=== PATIENT | male | born 1960 | race African-American/Black ===

== ENCOUNTER 2020-01-18 01:51 | Observation (INO) | payer OTHER, MEDICAID, SELFPAY ==
[2020-01-18] VITALS (40 sets, daily range): BP systolic 106–158; BP diastolic 53–99; PULSE 61–83; RESP 14–34; TEMP 36.4–36.9; O2SAT 94–98; BMI 41.9
--- NOTE | 2020-01-18 02:03 | DI.RAD.S_ITS ---
PROCEDURE: XR CHEST 1V INDICATIONS: chest pain TECHNIQUE: One view of the chest was acquired. COMPARISON: [facility], , CHEST 2 VIEW, 04/07/2014, 12:09. FINDINGS: Surgical changes and devices: None. Lungs and pleura: Lungs are clear. No pleural effusions or pneumothorax. Mediastinum: Mediastinal contours appear normal. Heart size is normal. Bones and chest wall: No suspicious bony lesions. Overlying soft tissues appear unremarkable. IMPRESSION: No acute cardiopulmonary disease process. Dictated by: Sheba Adkins MD, PhD on 01/18/2020 at 8:19 Approved by: Sheba Adkins MD, PhD on 01/18/2020 at 8:19
[2020-01-18 02:10] LABS: Add Manual Diff / Slide Review NO; Basophils Absolute Auto 100 /uL (0-100); Basophils Percent Auto 1.4 % (0-2); Eosinophils Absolute Auto 300 /uL (0-450); Eosinophils Percent Auto 3.1 % (2-4); Hematocrit 39.8 % (41-53); Hemoglobin 13.3 g/dL (13.5-17.5); Lymphocytes Absolute Auto 2700 /uL (1100-4500); Lymphocytes Percent Auto 27.8 % (25-40); Mean Corpuscular HGB Conc 33.4 % (30-36); Mean Corpuscular Hemoglobin 32.7 PG (26-34); Mean Corpuscular Volume 98.1 fL (80-100); Monocytes Absolute Auto 900 /uL (0-900); Monocytes Percent Auto 9.1 % (3-14); Neutrophils Absolute Auto 5600 /uL (1500-7000); Neutrophils Percent Auto 58.6 % (50-75); Platelet Count 238 X10^3/uL (150-400); Red Blood Cell Count 4.05 X10^6/uL (4.5-5.9); Red Cell Distribution Width 14.1 % (11.6-14.8); White Blood Cell Count 9.5 X10^3/uL (4.5-11.0)
[2020-01-18] MEDS: NITROGLYCERIN OINT 1 INCH/GM OINT...G. 0.5 INCH TOP (02:10)
[2020-01-18] MEDS: ASPIRIN 81 MG CHEW TAB 324 MG PO (02:10)
[2020-01-18] MEDS: SODIUM CHLORIDE 0.9% 1,000 ML 150 ML IV (02:10)
[2020-01-18 02:21] LABS: Alanine Aminotransferase 41 IU/L (<50); Albumin 4.4 g/dL (3.5-5.0); Albumin Globulin Ratio 1.1 (1.0-2.8); Alkaline Phosphatase 65 U/L (38-126); Aspartate Aminotransferase 56 IU/L (17-59); Bilirubin Total 0.7 mg/dL (0.2-1.3); Blood Urea Nitrogen 18 mg/dL (9-20); Calcium 9.7 mg/dL (8.4-10.2); Carbon Dioxide 28 mmol/L (22-32); Chloride 101 mmol/L (98-107); Creatine Kinase 704 U/L (55-170); Estimated Glomerular Filt Rate > 60.0 mL/min (>60); Globulin 4.1 g/dL (1.7-4.1); Glucose 118 mg/dL (80-110); HEMOLYSIS < 15 (0-50); Lipase 89 U/L (23-300); Sodium 137 mmol/L (137-145); Total Protein 8.5 g/dL (6.3-8.2)
[2020-01-18 02:30] LABS: NT-proBNP (BNP-Adult 18+) 38 pg/mL (<125)
[2020-01-18 02:33] LABS: Troponin I 0.015 ng/mL (0.01-0.034)
--- NOTE | 2020-01-18 02:35 | ED_ITS ---
HPI - Chest Pain General Chief Complaint: Chest Pain Stated Complaint: chest pain Time Seen by Provider: 01/18/20 02:02 Source: patient Mode of arrival: Ambulatory Limitations: no limitations History of Present Illness HPI narrative: 59M non smoker with history of coronary artery disease with 1 stent, hypertension, hyperlipidemia presents with a chief complaint of chest pressure that started at about 10:00 p.m. in the absence of provocation or palliation. It was retrosternal in location and he denies any radiation. He denies any obvious exertional component. He denies any dizziness, weakness or lightheadedness. He denies any shortness of breath. He has had no runny nose, sore throat nor fever or chills. He denies any obvious exposure to persons known to have coronavirus. He saw a doctor at [facility] as an outpatient yesterday due to complaint of some increased swelling in his lower extremities. He was taken off of his and loaded pain and placed on furosemide. He is currently having pressure which he rates as maybe a 1 or a 2/10. He did take a full dose aspirin prior to coming. He's had no provocative testing in a quite a few years. MD complaint: chest pain Onset (ago): hour(s) Duration: constant Onset: during rest Pain location: substernal Severity: mild Quality: tightness Pain radiation: none Relieving factors: nothing Exacerbating factors: nothing Treatments prior to arrival chest pain: aspirin Related Data Home Medications Medication Instructions Recorded Confirmed aspirin [Aspirin Childrens] 81 mg PO DAILY 01/18/20 01/18/20 atorvastatin 80 mg PO BEDTIME 01/18/20 01/18/20 finasteride 5 mg PO DAILY 01/18/20 01/18/20 furosemide 20 mg PO DAILY 01/18/20 01/18/20 isosorbide mononitrate 30 mg PO DAILY 01/18/20 01/18/20 metoprolol succinate 50 mg PO BID 01/18/20 01/18/20 omeprazole 40 mg PO DAILY 01/18/20 01/18/20 polyvinyl alcohol [Artificial 1 drp OPHTHALMIC (EYE) PRN PRN 01/18/20 01/18/20 Tears (polyvin alc)] potassium chloride 10 meq PO DAILY 01/18/20 01/18/20 triamcinolone acetonide 1 applic TOPICAL BID 01/18/20 01/18/20 Allergies Allergy/AdvReac Type Severity Reaction Status Date / Time lisinopril Allergy Verified 01/18/20 03:16 prils Allergy Mild any pril Uncoded 09/15/17 13:09 bp meds (hives) Review of Systems Constitutional Constitutional: Denies chills, Denies fatigue, Denies fever(s), Denies frequent falls, Denies lethargy and Denies weakness Eyes Eyes: Denies change in vision, Denies eye discharge, Denies irritation and Denies loss of vision ENT Ears, Nose, Mouth, and Throat: Denies change in voice, Denies dizziness, Denies neck pain, Denies sore throat and Denies throat swelling Cardiovascular Cardiovascular: Reports chest pain, Denies irregular heart rhythm, Reports leg edema, Denies lightheadedness, Denies palpitations, Denies dyspnea, Denies dyspnea on exertion and Denies orthopnea Respiratory Respiratory: Denies cough, Denies dyspnea, Denies dyspnea on exertion and Denies wheezing Gastrointestinal Gastrointestinal: Denies abdominal pain, Denies change in bowel habits, Denies diarrhea, Denies nausea and Denies vomiting Musculoskeletal Musculoskeletal: Denies neck pain and Denies numbness Integumentary/Breasts Skin/Breast: Denies pruritus, Denies erythema, Denies rash and Denies wounds Neurologic Neurologic: Denies behavioral changes, Denies confusion, Denies dizziness, Denies frequent falls, Denies loss of vision, Denies numbness and Denies weakness Psychiatric Psychiatric: Denies anxiety, Denies behavioral changes, Denies confusion, Denies depression, Denies homicidal ideation and Denies suicidal ideation Endocrine Endocrine: Denies fatigue, Denies flushing and Denies palpitations Hematologic/Lymphatic Hematologic/Lymphatic: Denies easy bruising Allergic/Immunologic Allergic/Immunologic: Denies urticaria, Denies throat swelling and Denies wheezing Patient History Medical History (Updated 01/18/20 @ 15:03 by Zeb Torres MD) Alcohol abuse (Acute) CAD (coronary artery disease) (Acute) Chronic GERD (Acute) Mild peripheral edema (Acute) Obesities, morbid (Acute) Surgical History (Updated 01/18/20 @ 15:01 by Zeb Torres MD) History of coronary artery stent placement (Acute) Social History household members: family Smoking Status: Never smoker Smoking Status: Never smoker alcohol intake frequency: 0-2 drinks per day Substance Use Type: does not use Exam Narrative Exam Narrative: GENERAL: [59] year old patient appears stated age. Well- nourished, well-developed patient, in mild distress. HEAD: Atraumatic. Normocephalic. EYES: Pupils equal round and reactive. Extraocular motions intact. No scleral icterus. No injection or drainage. ENT: Nose without bleeding, purulent drainage. Throat without erythema, tonsil lar hypertrophy or exudate. Airway patent. NECK: Trachea midline. Non tender CARDIOVASCULAR: Regular rate and rhythm without murmurs, gallops, or rubs. RESPIRATORY: Clear to auscultation. Breath sounds equal bilaterally. No wheezes, rales, or rhonchi. GASTROINTESTINAL: Abdomen soft, non-tender, nondistended. EXTREMITIES: 2+ pitting edema bilateral lower extremities. BACK: Nontender without deformity or crepitance. No flank tenderness. NEURO: AOx3. SKIN: No rash or erythema of visible areas Initial Vital Signs Initial Vital Signs: Vital Signs Temperature 98.3 F 01/18/20 02:09 Pulse Rate 74 01/18/20 02:09 Respiratory Rate 15 01/18/20 02:09 Blood Pressure 156/91 H 01/18/20 02:09 Pulse Oximetry 97 01/18/20 02:09 Course Orders Ordered: Artificial Tears (Artificial Tears) 1 drops EYE-BOTH PRN PRN PRN Reason: Dry Eyes Aspirin (Aspirin Chew) 81 mg PO DAILY [facility] Atorvastatin Calcium (Lipitor) 80 mg PO BEDTIME [facility] Finasteride (Proscar) 5 mg PO DAILY [facility] Furosemide (Lasix) 20 mg PO DAILY [facility] Isosorbide Mononitrate (Imdur) 30 mg PO DAILY [facility] Metoprolol Succinate (Toprol Xl) 50 mg PO BID [facility] Naloxone HCl (Narcan) 0.2 mg IV Q2MIN PRN PRN Reason: Opiate Reversal Nitroglycerin (Nitrostat) 0.4 mg SL [id number] PRN PRN Reason: Chest Pain Pantoprazole Sodium (Protonix) 40 mg PO DAILY [facility] Potassium Chloride (Klor-Con M10) 10 meq PO DAILY JONEL Discontinued Medications Aspirin (Aspirin Chew) 324 mg PO NOW ONE Stop: 01/18/20 02:03 Last Admin: 01/18/20 02:22 Dose: Not Given Documented by: MARY Furosemide (Lasix) 40 mg IV NOW ONE Stop: 01/18/20 02:37 Last Admin: 01/18/20 02:50 Dose: 40 mg Documented by: HERB Sodium Chloride (Normal Saline 0.9%) 1,000 mls @ 150 mls/hr IV CONT JONEL Last Infusion: 01/18/20 03:18 Dose: 0 mls/hr Documented by: Admin: 01/18/20 02:10 Dose: 150 mls/hr Documented by: MARY Metoprolol Tartrate (Lopressor) 50 mg PO NOW ONE Stop: 01/18/20 15:18 Last Admin: 01/18/20 17:41 Dose: Not Given Documented by: OSCAR Metoprolol Tartrate (Lopressor) 50 mg PO NOW ONE Stop: 01/18/20 17:46 Last Admin: 01/18/20 17:41 Dose: 50 mg Documented by: OSCAR Nitroglycerin (Nitro-Bid) 0.5 inch TOP NOW ONE Stop: 01/18/20 02:03 Last Admin: 01/18/20 02:10 Dose: 0.5 inch Documented by: MARY Vital Signs Vital signs: Vital Signs - 8 hr 01/18/20 02:09 01/18/20 02:24 01/18/20 02:30 Temperature 98.3 F Pulse Rate 74 73 74 Respiratory Rate 15 24 21 Blood Pressure 156/91 H Pulse Oximetry 97 97 97 01/18/20 02:31 01/18/20 03:00 01/18/20 03:30 Temperature Pulse Rate 72 67 65 Respiratory Rate 20 22 16 Blood Pressure 133/78 129/78 Pulse Oximetry 97 97 97 01/18/20 03:31 01/18/20 04:00 01/18/20 04:31 Temperature Pulse Rate 64 63 61 Respiratory Rate 17 16 16 Blood Pressure 119/68 129/69 119/66 Pulse Oximetry 96 97 98 01/18/20 05:00 01/18/20 05:30 01/18/20 06:00 Temperature Pulse Rate 65 66 68 Respiratory Rate 16 16 19 Blood Pressure 128/81 134/71 143/82 H Pulse Oximetry 97 96 98 MDM - Chest Pain Lab Data Result diagrams: 01/18/20 02:00 01/18/20 02:00 Labs: Lab Results 01/18/20 01/18/20 01/18/20 Range/Units 02:00 02:00 02:00 WBC 9.5 (4.5-11.0) X10^3/uL RBC 4.05 L (4.5-5.9) X10^6/uL Hgb 13.3 L (13.5-17.5) g/dL Hct 39.8 L (41-53) % MCV 98.1 (80-100) fL MCH 32.7 (26-34) PG MCHC 33.4 (30-36) % RDW 14.1 (11.6-14.8) % Plt Count 238 (150-400) X10^3/uL Neut % (Auto) 58.6 (50-75) % Lymph % (Auto) 27.8 (25-40) % Rains % (Auto) 9.1 (3-14) % Eos % (Auto) 3.1 (2-4) % Baso % (Auto) 1.4 (0-2) % Neut # (Auto) 5600 (6376-9737) /uL Lymph # (Auto) 2700 (4947-8429) /uL Rains # (Auto) 900 (0-900) /uL Eos # (Auto) 300 (0-450) /uL Baso # (Auto) 100 (0-100) /uL Sodium 137 (137-145) mmol/L Potassium 4.0 (3.4-5.1) mmol/L Chloride 101 (98-107) mmol/L Carbon Dioxide 28 (22-32) mmol/L BUN 18 (9-20) mg/dL Creatinine 1.06 (0.66-1.25) mg/dL Estimated GFR > 60.0 (>60) mL/min BUN/Creatinine Ratio 17.0 (6-22) Glucose 118 H (80-110) mg/dL Calcium 9.7 (8.4-10.2) mg/dL Total Bilirubin 0.7 (0.2-1.3) mg/dL AST 56 (17-59) IU/L ALT 41 (<50) IU/L Alkaline Phosphatase 65 (38-126) U/L Total Creatine Kinase 704 H (55-170) U/L CK-MB (CK-2) 5.52 H (<2.37) ng/mL CK-MB (CK-2) Rel Index 0.8 L (1.5-5.0) % Troponin I 0.015 (0.01-0.034) ng/mL NT-Pro-B Natriuret Pep 38 (<125) pg/mL Total Protein 8.5 H (6.3-8.2) g/dL Albumin 4.4 (3.5-5.0) g/dL Globulin 4.1 (1.7-4.1) g/dL Albumin/Globulin Ratio 1.1 (1.0-2.8) Lipase 89 (23-300) U/L 01/18/20 Range/Units 04:10 WBC (4.5-11.0) X10^3/uL RBC (4.5-5.9) X10^6/uL Hgb (13.5-17.5) g/dL Hct (41-53) % MCV (80-100) fL MCH (26-34) PG MCHC (30-36) % RDW (11.6-14.8) % Plt Count (150-400) X10^3/uL Neut % (Auto) (50-75) % Lymph % (Auto) (25-40) % Rains % (Auto) (3-14) % Eos % (Auto) (2-4) % Baso % (Auto) (0-2) % Neut # (Auto) (6889-3561) /uL Lymph # (Auto) (2523-2794) /uL Rains # (Auto) (0-900) /uL Eos # (Auto) (0-450) /uL Baso # (Auto) (0-100) /uL Sodium (137-145) mmol/L Potassium (3.4-5.1) mmol/L Chloride (98-107) mmol/L Carbon Dioxide (22-32) mmol/L BUN (9-20) mg/dL Creatinine (0.66-1.25) mg/dL Estimated GFR (>60) mL/min BUN/Creatinine Ratio (6-22) Glucose (80-110) mg/dL Calcium (8.4-10.2) mg/dL Total Bilirubin (0.2-1.3) mg/dL AST (17-59) IU/L ALT (<50) IU/L Alkaline Phosphatase (38-126) U/L Total Creatine Kinase (55-170) U/L CK-MB (CK-2) (<2.37) ng/mL CK-MB (CK-2) Rel Index (1.5-5.0) % Troponin I 0.014 (0.01-0.034) ng/mL NT-Pro-B Natriuret Pep (<125) pg/mL Total Protein (6.3-8.2) g/dL Albumin (3.5-5.0) g/dL Globulin (1.7-4.1) g/dL Albumin/Globulin Ratio (1.0-2.8) Lipase (23-300) U/L Imaging Data Chest x-ray: Radiologist's Impression: No acute process MDM Narrative Medical decision making narrative: Patient resting comfortably in though he is now pain-free (after nitro paste) and has troponin x2 negative he requires admission to the hospital for the traditional cardiac workup including echocardiogram and provocative testing along with maximizing medical therapy. Patient understands and is in agreement with this plan. He is boarding as we currently have no beds but they expect to free up this morning. I have placed an initial call to the hospitalist but the patient will be signed out to my partner and full discussion will happen with the daytime hospitalist later this morning Discharge Plan Departure Patient Disposition: Admitted As Inpatient Clinical Impression: Chest pain Qualifiers: Chest pain type: unspecified Qualified Code(s): R07.9 - Chest pain, unspecified Discharge Date/Time: 01/18/20 13:03 Admit Date/Time: 01/18/20 08:19 Admit Provider: Zeb Torres
[2020-01-18 02:36] LABS: CKMB % Relative Index 0.8 % (1.5-5.0); Creatine Kinase MB 5.52 ng/mL (<2.37)
[2020-01-18] MEDS: FUROSEMIDE 40 MG/4 ML VIAL IV (02:50)
[2020-01-18 04:45] LABS: Troponin I 0.014 ng/mL (0.01-0.034)
--- NOTE | 2020-01-18 05:27 | PC.NURSE ---
Addendum entered by Dinora Thompson R.N. 01/18/20 05:29: Placed 2L of O2 while pt sleeps. Pt's spo2 increases to high 90s while awake in RA Original Note: Pt drops spo2 with sleeping. denies sleep apnea diagnosis but states was told he stops breathing when he sleeps.
--- NOTE | 2020-01-18 06:59 | PC.NURSE ---
Pt started to complain of chest pain in left side starting about 5 minutes ago. Provider aware. EKG being performed
[2020-01-18 09:54] LABS: COVID19 -Nasal RAPID Negative (Negative)
[2020-01-18 13:05] LABS: Troponin I < 0.012 ng/mL (0.01-0.034)
--- NOTE | 2020-01-18 14:49 | DI.ECHO.S_ITS ---
[facility] +---------+ Hospital +---------+ : : [address] : : : [place], [place] : : : : [id number] : : : : Phone: [phone] Echocardiogram Report + + :Name: SANG VILLALTA Study Date: 01/18/2020 Height: 66 in : :[facility] Weight: 260 lb : : Gender: Male BSA: 2.2 m2 : :: 1960 Age: 59 yrs BP: 123/64 mmHg: :Reason For Study: Chest pain : :Ordering Physician: Renetta : :Hospitalist Performed By: Lachelle Nance : :Referring: JAIMEE BALDWIN : + + Interpretation Summary 1) Mildly increased left ventricular thickness (concentric), with normal size, normal wall motion, and normal systolic function (EF 60-65%). 2) The right ventricle is mildly dilated. The right ventricular systolic function is normal. 3) There is mild aortic regurgitation. 4) No prior Echo available for comparison. Procedure: A two-dimensional transthoracic echocardiogram with color flow and Doppler was performed. The study quality was technically adequate. There is no prior echocardiogram noted for this patient. The patient was in sinus rhythm with heart rates between 63-85 bpm during the exam. Left Ventricle: The left ventricle is normal in size. Left ventricular wall thickness is mildly increased. There is mild proximal septal thickening noted. The ejection fraction is estimated to be 60-65%. Left ventricular systolic function is normal without focal wall motion abnormalities. Right Ventricle: The right ventricle is mildly dilated. The right ventricular systolic function is normal. Atria: The left atrial size is normal. Right atrial size is normal. There is no Doppler evidence for an interatrial shunt. Mitral Valve: The mitral valve is normal in structure and function. There is trace mitral regurgitation. Aortic Valve: The aortic valve is trileaflet. The aortic valve opens well. There is no aortic valve stenosis. There is mild aortic regurgitation. Tricuspid Valve: The tricuspid valve is normal in structure and function. Pulmonary artery pressures cannot be estimated because of the lack of a measurable TR jet velocity but the IVC suggests a CVP of around 3 mmHg. There is mild tricuspid regurgitation. Pulmonic Valve: The pulmonic valve is not well seen, but is grossly normal. There is no pulmonic valvular regurgitation. Great Vessels: The aortic root is normal size. The ascending aorta is normal in size. The IVC is of normal diameter and collapses greater than 50% with a sniff. This suggests a low right atrial pressure of 3 mm Hg. Pericardium/ Pleura There is no pericardial effusion. There is no pleural effusion. MMode/2D Measurements & Calculations LVIDd: 5.4 cm LVOT diam: 2.4 cm LVIDs: 3.4 cm Ao root diam: 3.4 cm FS: 37.8 % asc Aorta Diam: 3.3 cm EPSS: 0.97 cm Ao Arch Diam (Prox Trans): 3.4 cm IVSd: 1.2 cm LVPWd: 1.4 cm LV knowles. diameter/BSA (cm/m^2): 2.4 LV sys. diameter/BSA (cm/m^2): 1.5 LA A2 area: 23.0 cm2 RA long axis: 5.0 cm LA A4 area: 18.9 cm2 RA area: 18.4 cm2 LA length (vol): 5.5 cm RA vol: 57.3 ml LA vol: 67.1 ml RA : 25.6 ml/m2 LA vol index: 30.0 ml/m2 IVC diam: 1.9 cm RVD1 (basal): 4.5 cm TAPSE: 2.8 cm Doppler Measurements & Calculations Ao V2 max: 152.2 cm/sec LVOT Max Gildardo: 138.8 cm/sec Ao V2 mean: 109.5 cm/sec LV V1 max P.7 mmHg Ao max P.3 mmHg LV V1 VTI: 33.3 cm Ao mean P.4 mmHg WILSON(I,D): 4.4 cm2 Ao V2 VTI: 35.4 cm WILSON(V,D): 4.3 cm2 sev ratio: 0.94 WILSON indexed to BSA (cm^2/m^2): 2.0 MV E max gildardo: 57.9 cm/sec PA V2 max: 91.7 cm/sec MV A max gildardo: 80.3 cm/sec PA V2 mean: 61.9 cm/sec MV E/A: 0.72 PA mean P.8 mmHg Med Peak E' Gildardo: 7.2 cm/sec PA pr(Accel): 37.9 mmHg E/E' med: 8.0 Lat Peak E' Gildardo: 6.5 cm/sec E/E' lat: 8.9 E/e' average: 8.5 MV dec time: 0.24 sec SV(LVOT): 157.1 ml Reading Physician:05:33 PM
--- NOTE | 2020-01-18 14:55 | P.HP_ITS ---
History of Present Illness History of Present Illness Date Patient Seen: 01/18/20 Chief complaint: chest pain Narrative: Patient is a 59-year-old male former smoker with history of obesity, CAD, stent placement 2017, GERD, significant alcohol use who presented to ED with complaints of chest discomfort. Patient had seen his provider the day prior due to increased swelling in his lower extremities and was started on oral Lasix with further workup planned. He states his legs have been more swollen than usual over the past few days. He has taken some long car rides as well. He felt short of breath when walking the boardwalk in [facility] which is further than he typically walks but he did not have any exertional chest discomfort. Around 10:00 p.m. yesterday he had chest pain on the left side which started at rest and was persistent at the time he showed up in the ER around 2:00 a.m.. Subsequently his chest discomfort improved after aspirin and nitroglycerin in the ER and he has had some intermittent discomfort since that time. He is currently not having chest pain. His initial troponin is normal. He was admitted for chest pain rule out. Patient states he was hospitalized at [facility] in [place] in 2017 due to chest pain which resulted in stent placement for 99% coronary occlusion. He states he had another artery that was 75% blocked but did not require intervention. He states he has been compliant with his medications. He has smoked most of his life up to 1/2 pack per day but last quit a year ago. He states he drinks equivalent of 4 beers a day. Patient History Medical History (Updated 01/18/20 @ 15:03 by Zeb Torres MD) Alcohol abuse (Acute) CAD (coronary artery disease) (Acute) Chronic GERD (Acute) Mild peripheral edema (Acute) Obesities, morbid (Acute) Surgical History (Updated 01/18/20 @ 15:01 by Zeb Torres MD) History of coronary artery stent placement (Acute) Family & Social History Social History: household members family Prior Living Arrangements House Safety & Behavioral: Feels Safe in Current Yes Environment Been Physically Hurt or No Threatened By a Person Suicidal Ideation Description None Suicide Plan Description No Plan Tobacco & Substance use: Smoking Status Former smoker alcohol intake frequency 4 beers per day Substance Use Type does not use Meds Home Medications and Allergies Home Medications Medication Instructions Recorded Confirmed Type aspirin [Aspirin Childrens] 81 mg PO DAILY 01/18/20 01/18/20 History atorvastatin 80 mg PO BEDTIME 01/18/20 01/18/20 History finasteride 5 mg PO DAILY 01/18/20 01/18/20 History furosemide 20 mg PO DAILY 01/18/20 01/18/20 History isosorbide mononitrate 30 mg PO DAILY 01/18/20 01/18/20 History metoprolol succinate 50 mg PO BID 01/18/20 01/18/20 History omeprazole 40 mg PO DAILY 01/18/20 01/18/20 History polyvinyl alcohol [Artificial 1 drp OPHTHALMIC (EYE) PRN PRN 01/18/20 01/18/20 History Tears (polyvin alc)] potassium chloride 10 meq PO DAILY 01/18/20 01/18/20 History triamcinolone acetonide 1 applic TOPICAL BID 01/18/20 01/18/20 History Allergies Allergy/AdvReac Type Severity Reaction Status Date / Time lisinopril Allergy Verified 01/18/20 03:16 prils Allergy Mild any pril Uncoded 09/15/17 13:09 bp meds (hives) Review of Systems Review of Systems ROS: Yes All systems reviewed with the patient and are negative except as otherwise documented Exam Vital Signs (past 8 hours): - 01/18/20 06:57 01/18/20 06:59 01/18/20 07:00 Temperature Pulse Rate 67 67 Respiratory Rate 16 18 Blood Pressure 124/66 121/63 Pulse Oximetry 94 95 01/18/20 07:01 01/18/20 07:30 01/18/20 08:00 Temperature Pulse Rate 70 69 68 Respiratory Rate 28 H 17 18 Blood Pressure 124/63 135/69 Pulse Oximetry 96 94 97 01/18/20 08:30 01/18/20 08:31 01/18/20 09:00 Temperature Pulse Rate 64 64 72 Respiratory Rate 15 15 21 Blood Pressure 118/67 132/79 Pulse Oximetry 98 97 01/18/20 09:30 01/18/20 09:31 01/18/20 10:00 Temperature Pulse Rate 71 72 67 Respiratory Rate 19 17 16 Blood Pressure 123/66 Pulse Oximetry 01/18/20 10:01 01/18/20 10:30 01/18/20 11:00 Temperature Pulse Rate 65 83 67 Respiratory Rate 20 17 15 Blood Pressure 106/53 L 158/83 H Pulse Oximetry 01/18/20 11:01 01/18/20 11:30 01/18/20 11:31 Temperature Pulse Rate 67 67 66 Respiratory Rate 15 15 Blood Pressure 130/79 117/56 L Pulse Oximetry 01/18/20 12:00 01/18/20 12:30 01/18/20 12:55 Temperature 97.6 F Pulse Rate 67 68 71 Respiratory Rate 18 15 18 Blood Pressure 120/58 L 123/64 156/97 H Pulse Oximetry 94 Oxygen Delivery Method Room Air Oxygen Flow Rate 0 Narrative Exam Narrative: General: Elderly male in no acute distress HEENT: N/C/80, pupils equal and reactive, oropharynx unremarkable Neck: No JVD, no lymphadenopathy Lungs: Clear to auscultation Heart: Distant S1 and S2, regular rate and rhythm, no murmur Abdomen: Severe central obesity, soft, mild epigastric tenderness, no liver or spleen enlargement Extremities: Mild edema in the lower legs and ankles Neurological: Sensorium intact, nonfocal Skin: No rash Objective Labs Result Diagrams: 01/18/20 02:00 01/18/20 02:00 Labs: Laboratory Results - last 24 hr 01/18/20 01/18/20 01/18/20 02:00 02:00 02:00 WBC 9.5 RBC 4.05 L Hgb 13.3 L Hct 39.8 L MCV 98.1 MCH 32.7 MCHC 33.4 RDW 14.1 Plt Count 238 Neut % (Auto) 58.6 Lymph % (Auto) 27.8 Butts % (Auto) 9.1 Eos % (Auto) 3.1 Baso % (Auto) 1.4 Neut # (Auto) 5600 Lymph # (Auto) 2700 Butts # (Auto) 900 Eos # (Auto) 300 Baso # (Auto) 100 Sodium 137 Potassium 4.0 Chloride 101 Carbon Dioxide 28 BUN 18 Creatinine 1.06 Estimated GFR > 60.0 BUN/Creatinine Ratio 17.0 Glucose 118 H Calcium 9.7 Total Bilirubin 0.7 AST 56 ALT 41 Alkaline Phosphatase 65 Total Creatine Kinase 704 H CK-MB (CK-2) 5.52 H CK-MB (CK-2) Rel Index 0.8 L Troponin I 0.015 NT-Pro-B Natriuret Pep 38 Total Protein 8.5 H Albumin 4.4 Globulin 4.1 Albumin/Globulin Ratio 1.1 Lipase 89 COVID-19 PCR 01/18/20 01/18/20 01/18/20 04:10 08:35 08:35 WBC RBC Hgb Hct MCV MCH MCHC RDW Plt Count Neut % (Auto) Lymph % (Auto) Butts % (Auto) Eos % (Auto) Baso % (Auto) Neut # (Auto) Lymph # (Auto) Butts # (Auto) Eos # (Auto) Baso # (Auto) Sodium Potassium Chloride Carbon Dioxide BUN Creatinine Estimated GFR BUN/Creatinine Ratio Glucose Calcium Total Bilirubin AST ALT Alkaline Phosphatase Total Creatine Kinase CK-MB (CK-2) CK-MB (CK-2) Rel Index Troponin I 0.014 NT-Pro-B Natriuret Pep Total Protein Albumin Globulin Albumin/Globulin Ratio Lipase COVID-19 PCR Cancelled Negative 01/18/20 12:25 WBC RBC Hgb Hct MCV MCH MCHC RDW Plt Count Neut % (Auto) Lymph % (Auto) Butts % (Auto) Eos % (Auto) Baso % (Auto) Neut # (Auto) Lymph # (Auto) Butts # (Auto) Eos # (Auto) Baso # (Auto) Sodium Potassium Chloride Carbon Dioxide BUN Creatinine Estimated GFR BUN/Creatinine Ratio Glucose Calcium Total Bilirubin AST ALT Alkaline Phosphatase Total Creatine Kinase CK-MB (CK-2) CK-MB (CK-2) Rel Index Troponin I < 0.012 NT-Pro-B Natriuret Pep Total Protein Albumin Globulin Albumin/Globulin Ratio Lipase COVID-19 PCR Assessment & Plan Assessment & Plan narrative: This is a 59-year-old male with central obesity, CAD, stent placement 2016, peripheral edema presents with chest discomfort. 1. Chest pain, present on admission, active -initial and repeat troponin negative -EKG: NSR, first-degree AV block, no ST or T-wave abnormality. Chest x-ray: Normal -admit for stress test and echo -obtain cardiac catheterization records from [facility] in [place] -continue patient's routine aspirin, atorvastatin, isosorbide mononitrate, metoprolol succinate per home routine 2. Peripheral edema, acute on chronic, present on admission, active -BNP is normal -most likely this is venous stasis exacerbated by recent long car rides -follow-up on echo -continue furosemide 20 mg q.d. and oral potassium started recently 3. Alcohol abuse without history of acute withdrawal -patient with equivalent consumption 4 beers a day, encouraged to reduce alcohol intake -LFTs are normal -check coags Admit status: Observation in hospital DVT prophylaxis: Enoxaparin Surrogate decision maker: Spouse
--- NOTE | 2020-01-18 15:18 | PC.NURSE ---
During change of shift report, patient reports i am now having a little chest pain on left side of chest. Dr. Torres notified, order for EKG and nitroglycerin order received. Evening shift RN Dipti to assume care and taking in medications to patient. BP 137/85, HR 68. Patient has daughter at bedside now. Call light within reach.
[2020-01-18 16:01] LABS: Prothrombin Time 12.1 SECONDS (10.1-12.7)
[2020-01-18 16:04] LABS: PTT Partial Thromboplastin Tim 33 SECONDS (26.4-36.2)
[2020-01-18] MEDS: METOPROLOL IR 50 MG TABLET PO (17:41)
[2020-01-18] MEDS: METOPROLOL ER 50 MG TABLET PO (22:24)
[2020-01-18] MEDS: ATORVASTATIN 20 MG TABLET 80 MG PO (22:24)
[2020-01-19] VITALS (9 sets, daily range): BP systolic 125–161; BP diastolic 78–98; PULSE 61–90; RESP 12–19; TEMP 36.3–36.9; O2SAT 93–96
--- NOTE | 2020-01-19 07:45 | PC.NURSE ---
Spoke with provider about one time now dose protonix at 2345. Provider Chavez stated that should be cancelled, one was also ordered for this am.
[2020-01-19] MEDS: ENOXAPARIN 40 MG/0.4 ML SYRINGE SUBCUT (09:50)
[2020-01-19] MEDS: FINASTERIDE 5 MG TABLET PO (09:50)
[2020-01-19] MEDS: POTASSIUM CHLORIDE 10 MEQ TAB PO (09:51)
[2020-01-19] MEDS: ASPIRIN 81 MG CHEW TAB PO (09:51)
[2020-01-19] MEDS: FUROSEMIDE 20 MG TABLET PO (09:51)
[2020-01-19] MEDS: PANTOPRAZOLE 40 MG TABLET PO (09:51)
[2020-01-19] MEDS: SODIUM CHLORIDE 0.9% FLUSH 10 ML IV (09:53)
--- NOTE | 2020-01-19 11:53 | PC.NURSE ---
Addendum entered by Nathan Burns R.N. 01/19/20 14:48: PATIENT BACK ON UNIT, DENIES CHEST PAIN, STATES STESS TEST WENT FINE. OBTAINED VS. GIVEN BP MEDS THAT HAD BEEN HELD THIS AM. Addendum entered by Nathan Burns R.N. 01/19/20 14:05: PATIENT OFF OF UNIT FOR CARDIAC STRESS TEST. Original Note: PATIENT DENIES CP OR SOB. HAD BLE PITTING EDEMA. ATE BREAKFAST BUT NO COFFEE,, NO CAFFEINE, NO CHOCOLATE. METOPROLOL AND IMDUR HELD AFTER CLARIFICATION FROM DR. BALDWIN D/T SCHEDULED NUC MED STRESS TEST AT 1230.
--- NOTE | 2020-01-19 13:35 | CM.DANOTE ---
Discharge Planning/Care Management DCP: assessment: case received, EMR reviewed and met with pt during Team Bedside Rounds. A family member was at bedside.(? daughter). Pt is a 59 year old male who admitted yesterday to care of hospitalist team. PCP: Dr. Wagner: [facility] Payer: [employer]/Medicaid. Dr. Torres explained to all that he had not yet seen the records he requested yesterday from [facility] in regards to pt's cardiac stent procedure: 2017. Pt is to have a nuclear med stress test this afternoon and then Dr. Torres planned to meet with him to further discuss the POC going forward. P: DCplanning team will be following as POC unfolds and will check in again tomorrow if pt is still in the hospital. CM Discharge Assessment Start: 01/19/20 13:34 Freq: Status: Active Protocol: Document 01/19/20 13:34 ITV (Rec: 01/19/20 13:35 ITV [id number]) Discharge Planning Assessment Advance Directives? No History Provided By Patient,Family Member,Medical Record Prior Living Arrangements House Household Members family Independent with ADL's Yes Is patient alert and oriented? Yes Review Status In Process
[2020-01-19] MEDS: METOPROLOL ER 50 MG TABLET PO (14:46)
[2020-01-19] MEDS: ISOSORBIDE MONONITRATE ER 30 MG TABLET PO (14:47)
--- NOTE | 2020-01-19 17:09 | PM.DS.1 ---
History of Present Illness History of Present Illness Chief complaint: chest pain Narrative: Patient is a 59-year-old male former smoker with history of obesity, CAD, stent placement 2017, GERD, significant alcohol use who presented to ED with complaints of chest discomfort. Patient had seen his provider the day prior due to increased swelling in his lower extremities and was started on oral Lasix with further workup planned. He states his legs have been more swollen than usual over the past few days. He has taken some long car rides as well. He felt short of breath when walking the boardwalk in [facility] which is further than he typically walks but he did not have any exertional chest discomfort. Around 10:00 p.m. yesterday he had chest pain on the left side which started at rest and was persistent at the time he showed up in the ER around 2:00 a.m.. Subsequently his chest discomfort improved after aspirin and nitroglycerin in the ER and he has had some intermittent discomfort since that time. He is currently not having chest pain. His initial troponin is normal. He was admitted for chest pain rule out. Patient states he was hospitalized at [facility] in 2016 due to chest pain which resulted in stent placement for 99% coronary occlusion. He states he had another artery that was 75% blocked but did not require intervention. He states he has been compliant with his medications. He has smoked most of his life up to 1/2 pack per day but last quit a year ago. He states he drinks equivalent of 4 beers a day. Discharge Providers Provider Date of admission: 01/18/20 08:19 Discharge Date: 01/19/20 Discharge provider: Zeb Torres MD Summary Hospital Course Discharge Diagnosis: 1.Chest pain 2. Stable coronary artery disease 3. Obesity 4. Chronic venous stasis edema 5. First-degree AV block Hospital Course: Patient was admitted for chest pain rule out. He had serial negative troponins and no concerning EKG changes. Echo showed normal LVEF, mild concentric LVH, no significant valvular disease. Myocardial perfusion stress test showed no reversible ischemia. We were able to obtain and review patient's records from [facility] in [place]. He had a NSTEMI in December 2016. Patient had bare metal stent placed for 99% proximal RCA stenosis. He also had about 75% stenosis in diagonal branch of LAD. Findings from this admission are indicative of stable CAD. Additionally patient has had some swelling in the lower extremities which appear due to venous stasis. He was recently started on furosemide which he will continue. He is encouraged to get more physical activity and lose weight. Status at Discharge Cognitive/behavioral status at discharge: oriented Functional status at discharge: independent ambulation Overall status at discharge: patient is back to baseline Exam Vital Signs (past 8 hours): - 01/19/20 11:32 01/19/20 13:00 01/19/20 14:46 Temperature 98.3 F Pulse Rate 68 87 Respiratory Rate 19 Blood Pressure 133/89 155/93 H Pulse Oximetry 93 93 01/19/20 15:30 Temperature 98.2 F Pulse Rate 90 Respiratory Rate 17 Blood Pressure 125/88 Pulse Oximetry 95 Oxygen Delivery Method Room Air Oxygen Flow Rate 0 Objective Labs Result Diagrams: 01/18/20 02:00 01/18/20 02:00 Discharge Plan Discharge Plan Patient Disposition: Home Discharge orders & Medications Prescriptions: Continued atorvastatin 80 mg Tablet 80 mg PO BEDTIME RF: 0 triamcinolone acetonide 0.5 % Cream 1 applic TOPICAL BID RF: 0 metoprolol succinate 50 mg Tablet Extended Release 24 Hr 50 mg PO BID RF: 0 polyvinyl alcohol [Artificial Tears (polyvin alc)] 1.4 % Drops 1 drp OPHTHALMIC (EYE) PRN PRN (Reason: Dry Eyes) RF: 0 isosorbide mononitrate 30 mg Tablet Extended Release 24 Hr 30 mg PO DAILY RF: 0 omeprazole 40 mg Capsule,Delayed Release(Dr/Ec) 40 mg PO DAILY RF: 0 aspirin [Aspirin Childrens] 81 mg Tablet,Chewable 81 mg PO DAILY RF: 0 finasteride 5 mg Tablet 5 mg PO DAILY RF: 0 furosemide 20 mg Tablet 20 mg PO DAILY RF: 0 potassium chloride 10 mEq tablet extended release 10 meq PO DAILY RF: 0 Diet/Activity/Treatments Diet: Diet as Tolerated Discharge Data Attending Provider: Zeb Torres Admit Date/Time: 01/18/20 08:19
--- NOTE | 2020-01-19 20:08 | PC.NURSE ---
Shalom spoke with prov regarding results of echo and stress test and discussed going home today. D/C teaching done with patient and daughter Shantal at bedside. Patient wished to shower prior to leaving and had done so. Tele and IV removed, pt lois. well. All questions and concerns were addressed prior to d/c. Patient is aware to f/u with PCP next week. Patient belongings were gathered by daughter and taken down to personal vehicle. Patient was taken to personal vehicle via wheelchair and ambulated self into car. Patient left in stable condition. VSS.
--- NOTE | 2020-01-20 03:38 | DI.NM.S_ITS ---
DATE OF SERVICE: 01/19/2020 PROCEDURE PERFORMED: Exercise treadmill converted to pharmacologic stress only myocardial perfusion study with gating to assess ejection fraction and regional wall motion. ORDERING PROVIDER: Dr. Zeb Torres. INDICATIONS: The patient is a 59-year-old male with a history of percutaneous coronary revascularization, who presents with persistent chest discomfort, but normal troponins. CARDIAC STRESS: Exercise treadmill testing was attempted, but he was unable to keep up with the treadmill and developed significant exertional wheezing. He had a normal heart rate and blood pressure response. He was subsequently given 0.4 mg of regadenoson and, again, became dyspneic and slightly nauseated with mild chest pressure radiating into the left neck that resolved within 2 minutes of recovery. His resting ECG shows sinus rhythm with normal ST segments and there are no significant ST-segment shifts or arrhythmias with exercise or pharmacologic stress. He had rare isolated PVCs. Per protocol, he was injected with 25.6 mCi of technetium-99m Myoview and was imaged 15 minutes later using a gated SPECT acquisition protocol. It was felt that resting images were not necessary. FINDINGS: 1. Raw data: There is fairly good myocardial tracer uptake, although there is moderate motion artifact. Lung/heart ratio is normal at 0.39. 2. Quantitated gated SPECT: Post-stress ejection fraction was 72% without any focal wall motion abnormality. Specifically, the inferior wall appeared to have normal contractility. Post-stress end-diastolic volume was mildly increased at 126 mL. 3. Myocardial perfusion imaging: Post-stress supine images shows a fairly normal perfusion pattern without any perfusion defects. There are mildly reduced counts at the base of the inferior wall in a pattern consistent with diaphragmatic attenuation, supported by its resolution on the prone images. CONCLUSION: 1. Normal myocardial perfusion study. 2. No evidence for significant myocardial ischemia or previous myocardial infarction. 3. Normal left ventricular systolic function without any focal wall motion abnormality. 4. Markedly reduced exercise capacity with wheezing. He developed mild chest pressure and nausea with regadenoson, but had no ECG changes of ischemia. He had rare isolated PVCs KendallManfred - YENNY/dorys/rainer doc#: [id number]/job#: [id number] dd: 01/19/2020 17:02:00 dt: 01/20/2020 03:25:00 DICTATING MD/COPIES TO: Isidro Vasquez MD; Zeb Torres MD COPIES MNE: SUZANNA;
== END 2020-01-19 18:53 | disposition home or self-care (01) ==
LOC: ED 06:41 → AC 08:20
PROVIDERS: Admitting Provider Internal Medicine; Emergency Provider Emergency Medicine; Referring Provider Emergency Medicine; Visit Provider Internal Medicine
DX: R07.9 Chest pain, unspecified (principal); I25.10 Atherosclerotic heart disease of native coronary artery without angina pectoris; K21.9 Gastro-esophageal reflux disease without esophagitis; E66.01 Morbid (severe) obesity due to excess calories; F10.10 Alcohol abuse, uncomplicated; R60.9 Edema, unspecified; I87.8 Other specified disorders of veins; I44.0 Atrioventricular block, first degree; Z11.59 Encounter for screening for other viral diseases
CPT/HCPCS: 36415; 36592; 71045; 78451; 80053; 82550; 82553; 83690; 83880; 84484; 85025; 85610; 85730; 87635; 93005; 93017; 93306; 96361; 96372; 96374; 99284; 99285; G0378; A9502; J1650; J1940; J2785

== ENCOUNTER 2020-06-05 11:03 | Emergency (ER) | payer OTHER, MEDICAID, SELFPAY ==
[2020-01-18 13:21] VITALS: BMI 41.9
[2020-06-05] VITALS (13 sets, daily range): BP systolic 127–165; BP diastolic 71–92; PULSE 56–73; RESP 14–20; O2SAT 95–98; BMI 41.9
--- NOTE | 2020-06-05 11:21 | DI.RAD.S_ITS ---
PROCEDURE: XR CHEST 1V INDICATIONS: Chest pain TECHNIQUE: One view of the chest was acquired. COMPARISON: [facility], [place], CHEST 2 VIEW, 04/07/2014, 12:09. [facility], [place], XR CHEST 1V, 01/18/2020, 2:07. FINDINGS: Surgical changes and devices: None. Lungs and pleura: Lungs are clear. No pleural effusions or pneumothorax. Mediastinum: Mediastinal contours appear normal. Heart size is normal. Bones and chest wall: No suspicious bony lesions. Overlying soft tissues appear unremarkable. IMPRESSION: No acute cardiopulmonary disease. Dictated by: Teresa Ram M.D. on 06/05/2020 at 12:02 Approved by: Teresa Ram M.D. on 06/05/2020 at 12:02
--- NOTE | 2020-06-05 11:29 | ED_ITS ---
HPI - Chest Pain General Chief Complaint: Chest Pain Stated Complaint: blood pressure high/chest tightness x6 days Time Seen by Provider: 06/05/20 11:16 Source: patient Mode of arrival: Ambulatory Limitations: no limitations History of Present Illness HPI narrative: Patient is a 59-year-old male with history of coronary artery disease hypertension hyperlipidemia presenting today with elevated blood pressure. He states that he checks his blood pressure regularly is usually 140- 150 systolic but over last few days at home he is been up as high as 180. Today he is also noticing some right-sided chest discomfort. He says he can almost pinpoint. Nothing makes it better or worse. He has been experiencing some s hortness of breath with exertion ongoing for awhile he does not say it is any worse today. He increased his aspirin take due to COVID-19. He says he read that it can help so every other day he takes 81 mg alternating with 325 mg. His he denies any fever cough or chest discomfort. MD complaint: chest pain Related Data Home Medications Medication Instructions Recorded Confirmed aspirin [Aspirin Childrens] 81 mg PO DAILY 01/18/20 01/18/20 atorvastatin 80 mg PO BEDTIME 01/18/20 01/18/20 finasteride 5 mg PO DAILY 01/18/20 01/18/20 furosemide 20 mg PO DAILY 01/18/20 01/18/20 isosorbide mononitrate 30 mg PO DAILY 01/18/20 01/18/20 metoprolol succinate 50 mg PO BID 01/18/20 01/18/20 omeprazole 40 mg PO DAILY 01/18/20 01/18/20 polyvinyl alcohol [Artificial 1 drp OPHTHALMIC (EYE) PRN PRN 01/18/20 01/18/20 Tears (polyvin alc)] potassium chloride 10 meq PO DAILY 01/18/20 01/18/20 triamcinolone acetonide 1 applic TOPICAL BID 01/18/20 01/18/20 Previous Rx's Medication Instructions Recorded amlodipine 5 mg PO DAILY #30 tab 06/05/20 losartan 50 mg PO .qhs #30 tab 06/05/20 Allergies Allergy/AdvReac Type Severity Reaction Status Date / Time JOSEFA Inhibitors Allergy Verified 06/05/20 11:18 lisinopril Allergy Verified 06/05/20 11:18 Review of Systems Review of Systems Narrative: GENERAL: Denies chills, fatigue, malaise, fever, sweats, travel HEENT: Denies sinus pain, ear pain, sore throat, difficulty swallowing, neck pain RESPIRATORY: Denies dyspnea, cough, wheezing, hemoptysis, sputum. CARDIOVASCULAR: See HPI GASTROINTESTINAL: Denies nausea, vomiting, abdominal pain, diarrhea, constipation, melena. : Denies dysuria, frequency, incontinence, hematuria, urinary retention, flank pain. MUSCULOSKELETAL: Denies weakness, joint pain, or bony pain SKIN: No rash, no erythema, no pruritus NEUROLOGIC: Denies weakness, dizziness, headache, numbness, change in speech, confusion PSYCHIATRIC: No concerning psychosocial issues. 12 point review of systems is negative except for those stated above and HPI Patient History Medical History Alcohol abuse CAD (coronary artery disease) Chronic GERD Mild peripheral edema Obesities, morbid Surgical History History of coronary artery stent placement Social History household members: family Smoking Status: Never smoker Smoking Status: Never smoker alcohol intake frequency: 0-2 drinks per day Substance Use Type: does not use Exam Initial Vital Signs Initial Vital Signs: Vital Signs Pulse Rate 73 06/05/20 11:18 Respiratory Rate 20 06/05/20 11:18 Blood Pressure 140/92 H 06/05/20 11:18 Pulse Oximetry 96 06/05/20 11:18 GENERAL: Well-appearing, well-nourished and in no acute distress. HEENT: Head atraumatic,EOMI, pupils reactive, face symmetric, moist mucous membranes CARDIOVASCULAR: Regular rate and rhythm without murmurs, rubs or gallops. RESPIRATORY: Breath sounds equal bilaterally, no wheezes rales or rhonchi. ABDOMEN: Soft, nontender. Normoactive bowel sounds all 4 quadrants. No guarding or rebound. EXTREMITIES: Normal range of motion, no clubbing or edema. Neurovascularly intact NEUROLOGICAL: Alert and oriented x4.Normal gait and speech. SKIN: Warm, dry, no laceration, no petechiae, no rashes or lesions. Scores HEART Score Heart Score history: Moderately Suspicious Heart Score EKG: Normal Heart Score Age: 45-64 years old Heart Score risk factors: > 3 risk factors or hx of atherosclerotic disease Heart Score troponin: < or = to normal limit Heart Score Total: 4 Course Orders Ordered: ED Orders 06/05/20 11:21 XR chest 1V Stat EKG-12 Lead Stat 06/05/20 11:30 Complete Blood Count AUTO DIFF Stat Comprehensive Metabolic Panel Stat Lipase Stat NT-proBNP (BNP-Adult 18+) Stat Troponin & CK Cardiac Panel Stat 06/05/20 12:13 EKG-12 Lead Stat 06/05/20 13:27 Troponin I Stat Discontinued Medications Aspirin (Aspirin 81 Mg Chew Tab) 243 mg PO NOW ONE Stop: 06/05/20 11:22 Last Admin: 06/05/20 11:40 Dose: 243 mg Documented by: MARLO Sodium Chloride (Normal Saline 0.9%) 1,000 mls @ 150 mls/hr IV CONT JONEL Last Infusion: 06/05/20 15:47 Dose: 0 mls/hr Documented by: Admin: 06/05/20 11:43 Dose: 150 mls/hr Documented by: MARLO Nitroglycerin (Nitroglycerin 0.4 Mg Sl Tab) 0.4 mg SL [id number] PRN PRN Reason: Chest Pain Last Admin: 06/05/20 11:49 Dose: 0.4 mg Documented by: Admin: 06/05/20 11:44 Dose: 0.4 mg Documented by: MARLO Vital Signs Vital signs: Vital Signs - 8 hr 06/05/20 11:18 06/05/20 11:30 06/05/20 11:44 Pulse Rate 73 71 69 Respiratory Rate 20 18 Blood Pressure 140/92 H 150/84 H 150/84 H Pulse Oximetry 96 96 06/05/20 11:47 06/05/20 11:49 06/05/20 12:00 Pulse Rate 71 73 69 Respiratory Rate 19 16 Blood Pressure 149/78 H 149/78 H 127/71 Pulse Oximetry 96 95 06/05/20 12:30 06/05/20 13:00 06/05/20 13:30 Pulse Rate 62 60 57 L Respiratory Rate 15 15 14 Blood Pressure 165/88 H 157/85 H 155/80 H Pulse Oximetry 96 95 96 06/05/20 14:00 06/05/20 14:30 12/30/20 15:00 Pulse Rate 56 L 59 L Respiratory Rate 16 19 18 Blood Pressure 165/85 H Pulse Oximetry 96 98 97 06/05/20 15:25 Pulse Rate 62 Respiratory Rate Blood Pressure Pulse Oximetry MDM - Chest Pain Lab Data Attestation: I reviewed the patient's lab results. Result diagrams: 06/05/20 11:30 06/05/20 11:30 Labs: Lab Results 06/05/20 06/05/20 06/05/20 Range/Units 11:30 11:30 11:30 WBC 7.9 (4.5-11.0) X10^3/uL RBC 3.93 L (4.5-5.9) X10^6/uL Hgb 12.7 L (13.5-17.5) g/dL Hct 38.4 L (41-53) % MCV 97.7 (80-100) fL MCH 32.3 (26-34) PG MCHC 33.1 (30-36) % RDW 14.3 (11.6-14.8) % Plt Count 207 (150-400) X10^3/uL Neut % (Auto) 63.4 (50-75) % Lymph % (Auto) 25.6 (25-40) % Addison % (Auto) 5.9 (3-14) % Eos % (Auto) 3.9 (2-4) % Baso % (Auto) 1.2 (0-2) % Neut # (Auto) 5000 (6961-8817) /uL Lymph # (Auto) 2000 (8469-3716) /uL Addison # (Auto) 500 (0-900) /uL Eos # (Auto) 300 (0-450) /uL Baso # (Auto) 100 (0-100) /uL Sodium 138 (137-145) mmol/L Potassium 3.7 (3.4-5.1) mmol/L Chloride 103 (98-107) mmol/L Carbon Dioxide 29 (22-32) mmol/L BUN 12 (9-20) mg/dL Creatinine 0.94 (0.66-1.25) mg/dL Estimated GFR > 60.0 (>60) mL/min BUN/Creatinine Ratio 12.8 (6-22) Glucose 176 H (80-110) mg/dL Calcium 8.9 (8.4-10.2) mg/dL Total Bilirubin 0.6 (0.2-1.3) mg/dL AST 34 (17-59) IU/L ALT 26 (<50) IU/L Alkaline Phosphatase 40 (38-126) U/L Total Creatine Kinase 428 H (55-170) U/L CK-MB (CK-2) 2.74 H (<2.37) ng/mL CK-MB (CK-2) Rel Index 0.6 L (1.5-5.0) % Troponin I < 0.012 (0.01-0.034) ng/mL NT-Pro-B Natriuret Pep 188 H (<125) pg/mL Total Protein 7.6 (6.3-8.2) g/dL Albumin 3.9 (3.5-5.0) g/dL Globulin 3.7 (1.7-4.1) g/dL Albumin/Globulin Ratio 1.1 (1.0-2.8) Lipase 50 (23-300) U/L 12/30/20 Range/Units 13:27 WBC (4.5-11.0) X10^3/uL RBC (4.5-5.9) X10^6/uL Hgb (13.5-17.5) g/dL Hct (41-53) % MCV (80-100) fL MCH (26-34) PG MCHC (30-36) % RDW (11.6-14.8) % Plt Count (150-400) X10^3/uL Neut % (Auto) (50-75) % Lymph % (Auto) (25-40) % Addison % (Auto) (3-14) % Eos % (Auto) (2-4) % Baso % (Auto) (0-2) % Neut # (Auto) (6102-3538) /uL Lymph # (Auto) (1859-5270) /uL Addison # (Auto) (0-900) /uL Eos # (Auto) (0-450) /uL Baso # (Auto) (0-100) /uL Sodium (137-145) mmol/L Potassium (3.4-5.1) mmol/L Chloride (98-107) mmol/L Carbon Dioxide (22-32) mmol/L BUN (9-20) mg/dL Creatinine (0.66-1.25) mg/dL Estimated GFR (>60) mL/min BUN/Creatinine Ratio (6-22) Glucose (80-110) mg/dL Calcium (8.4-10.2) mg/dL Total Bilirubin (0.2-1.3) mg/dL AST (17-59) IU/L ALT (<50) IU/L Alkaline Phosphatase (38-126) U/L Total Creatine Kinase (55-170) U/L CK-MB (CK-2) (<2.37) ng/mL CK-MB (CK-2) Rel Index (1.5-5.0) % Troponin I 0.013 (0.01-0.034) ng/mL NT-Pro-B Natriuret Pep (<125) pg/mL Total Protein (6.3-8.2) g/dL Albumin (3.5-5.0) g/dL Globulin (1.7-4.1) g/dL Albumin/Globulin Ratio (1.0-2.8) Lipase (23-300) U/L ECG Data Attestation: I personally reviewed and interpreted this ECG as follows: Prior ECG tracings: available for review Interpretation: EKG 1. Normal sinus rhythm rate 72 p.r. interval 214 QRS [address] changes no T-wave inversion noted in aVL similar to previous EKG 2. Sinus rhythm rate 64 similar to previous EKG no changes MDM Narrative Medical decision making narrative: Patient actually was admitted to the hospital in January of 2020 for similar he has had an echocardiogram and nuclear stress test. He has 2-troponins and normal EKGs. His blood pressure is noted to increase slightly while in the ED. His chest pain improved after 2 nitroglycerin. 1525-Dr. Vance, cardiology who reviewed the patient's medications and test results. At this time he has follow-up appointment next week with recommends amlodipine 5 mg and losartan 50 mg at night I have explained the plan to the patient in regards to follow-up in changing his medication. He is agreeable to this. Discharge Plan Departure Patient Disposition: Home Clinical Impression: Hypertension Instructions: Essential Hypertension, DI for Atypical Chest Pain Activity Restrictions/Additional Instructions: *You have been diagnosed with atypical chest pain and hypertension *What to do: Given appointment with your pharmacy order entry technician next week. Your chest discomfort is likely due to her blood pressure not being well controlled. *Continue to take medications as directed--> SENT TO [facility] IN [place] Start taking amlodipine at 5 mg once daily Start taking losartan 50 mg at night *Follow up with your primary care provider in 2-3 days *Return to ER if you should have increasing chest pain, shortness of breath or any new, worsening or concerning symptoms Prescriptions: New losartan 50 mg tablet 50 mg PO .qhs Qty: 30 RF: 0 amlodipine 5 mg tablet 5 mg PO DAILY Qty: 30 RF: 0 No Action atorvastatin 80 mg Tablet 80 mg PO BEDTIME RF: 0 triamcinolone acetonide 0.5 % Cream 1 applic TOPICAL BID RF: 0 metoprolol succinate 50 mg Tablet Extended Release 24 Hr 50 mg PO BID RF: 0 polyvinyl alcohol [Artificial Tears (polyvin alc)] 1.4 % Drops 1 drp OPHTHALMIC (EYE) PRN PRN (Reason: Dry Eyes) RF: 0 isosorbide mononitrate 30 mg Tablet Extended Release 24 Hr 30 mg PO DAILY RF: 0 omeprazole 40 mg Capsule,Delayed Release(Dr/Ec) 40 mg PO DAILY RF: 0 aspirin [Aspirin Childrens] 81 mg Tablet,Chewable 81 mg PO DAILY RF: 0 finasteride 5 mg Tablet 5 mg PO DAILY RF: 0 furosemide 20 mg Tablet 20 mg PO DAILY RF: 0 potassium chloride 10 mEq tablet extended release 10 meq PO DAILY RF: 0 Referrals: Ronny Wagner MD [Primary Care Provider] -
[2020-06-05 11:38] LABS: Add Manual Diff / Slide Review NO; Basophils Absolute Auto 100 /uL (0-100); Basophils Percent Auto 1.2 % (0-2); Eosinophils Absolute Auto 300 /uL (0-450); Eosinophils Percent Auto 3.9 % (2-4); Hematocrit 38.4 % (41-53); Hemoglobin 12.7 g/dL (13.5-17.5); Lymphocytes Absolute Auto 2000 /uL (1100-4500); Lymphocytes Percent Auto 25.6 % (25-40); Mean Corpuscular HGB Conc 33.1 % (30-36); Mean Corpuscular Hemoglobin 32.3 PG (26-34); Mean Corpuscular Volume 97.7 fL (80-100); Monocytes Absolute Auto 500 /uL (0-900); Monocytes Percent Auto 5.9 % (3-14); Neutrophils Absolute Auto 5000 /uL (1500-7000); Neutrophils Percent Auto 63.4 % (50-75); Platelet Count 207 X10^3/uL (150-400); Red Blood Cell Count 3.93 X10^6/uL (4.5-5.9); Red Cell Distribution Width 14.3 % (11.6-14.8); White Blood Cell Count 7.9 X10^3/uL (4.5-11.0)
[2020-06-05] MEDS: ASPIRIN 81 MG CHEW TAB 243 MG PO (11:40)
[2020-06-05] MEDS: SODIUM CHLORIDE 0.9% 1,000 ML 150 ML IV (11:43)
[2020-06-05] MEDS: NITROGLYCERIN 0.4 MG SL TAB SL ×2 (11:44→11:49)
--- NOTE | 2020-06-05 11:48 | PC.NURSE ---
Pt had 81mg GU[employer] PLAYER, gave 243mg to total full dose.
--- NOTE | 2020-06-05 12:02 | PC.NURSE ---
Pain 0/10 after 2nd nitro
[2020-06-05 12:23] LABS: Alanine Aminotransferase 26 IU/L (<50); Albumin 3.9 g/dL (3.5-5.0); Albumin Globulin Ratio 1.1 (1.0-2.8); Alkaline Phosphatase 40 U/L (38-126); Aspartate Aminotransferase 34 IU/L (17-59); BUN Creatinine Ratio 12.8 (6-22); Bilirubin Total 0.6 mg/dL (0.2-1.3); Blood Urea Nitrogen 12 mg/dL (9-20); Calcium 8.9 mg/dL (8.4-10.2); Carbon Dioxide 29 mmol/L (22-32); Chloride 103 mmol/L (98-107); Creatine Kinase 428 U/L (55-170); Estimated Glomerular Filt Rate > 60.0 mL/min (>60); Globulin 3.7 g/dL (1.7-4.1); Glucose 176 mg/dL (80-110); HEMOLYSIS 23 (0-50); Lipase 50 U/L (23-300); Potassium 3.7 mmol/L (3.4-5.1); Sodium 138 mmol/L (137-145); Total Protein 7.6 g/dL (6.3-8.2)
[2020-06-05 12:44] LABS: CKMB % Relative Index 0.6 % (1.5-5.0); Creatine Kinase MB 2.74 ng/mL (<2.37)
[2020-06-05 12:47] LABS: Troponin I < 0.012 ng/mL (0.01-0.034)
[2020-06-05 12:57] LABS: NT-proBNP (BNP-Adult 18+) 188 pg/mL (<125)
[2020-06-05 13:59] LABS: Troponin I 0.013 ng/mL (0.01-0.034)
== END 2020-06-05 15:49 | disposition home or self-care (01) ==
PROVIDERS: Emergency Provider Emergency Medicine; PCP Family Medicine
DX: I10 Essential (primary) hypertension (principal); R07.9 Chest pain, unspecified; R06.02 Shortness of breath; Z79.82 Long term (current) use of aspirin; I25.10 Atherosclerotic heart disease of native coronary artery without angina pectoris; E78.5 Hyperlipidemia, unspecified; E66.01 Morbid (severe) obesity due to excess calories; Z68.41 Body mass index [BMI] 40.0-44.9, adult
CPT/HCPCS: 36415; 71045; 80053; 82550; 82553; 83690; 83880; 84484; 85025; 93005; 96360; 96361; 99283; 99284

== ENCOUNTER 2021-02-15 14:39 | Inpatient (IN) | payer OTHER, MEDICAID, SELFPAY ==
[2020-01-18 13:21] VITALS: BMI 41.9
[2021-02-15] VITALS (15 sets, daily range): BP systolic 95–133; BP diastolic 55–85; PULSE 57–84; RESP 16–23; TEMP 36.4–36.8; O2SAT 94–99; BMI 36.6
--- NOTE | 2021-02-15 14:47 | DI.CT.S_ITS ---
PROCEDURE: CT HEAD/BRAIN WO CON INDICATIONS: slurred speech TECHNIQUE: Noncontrast 4.5 mm thick angled axial sections acquired from the foramen magnum to the vertex, with coronal and sagittal reformats. For radiation dose reduction, the following was used: automated exposure control, adjustment of mA and/or kV according to patient size. COMPARISON: None. FINDINGS: Image quality: Excellent. CSF spaces: Basal cisterns are patent. No extra-axial fluid collections. Ventricles are normal in size and shape. Brain: No midline shift. No intracranial masses or hemorrhage. No area of hypodensity in a large vascular distribution to suggest acute infarction. Periventricular hypodensity consistent with chronic microvascular ischemic change. Age-related parenchymal loss. Skull and face: Calvarium and visualized facial bones are intact, without suspicious lesions. Sinuses: Mucosal thickening in the bilateral maxillary sinuses. Mucosal thickening in the left sphenoid sinus. Mastoids are clear. IMPRESSION: No acute intracranial abnormality. Chronic microvascular ischemic disease. Dictated by: Jorge Tavarez M.D. on 02/15/2021 at 14:43 Approved by: Jorge Tavarez M.D. on 02/15/2021 at 14:46
--- NOTE | 2021-02-15 14:59 | ED.GENADULT ---
HPI - General Adult General Chief complaint: Altered Mental Status Stated complaint: Incoherent post covid, slurred speech Time Seen by Provider: 02/15/21 14:47 Source: family Mode of arrival: Wheelchair History of Present Illness HPI narrative: 60-year-old male who is brought in by the patient's daughter for evaluation of slurred speech and decreased activity and apparently confusion. His last known normal was 2 days ago. Patient's daughter states that her mother (who is not to the patient however does see him quite often) saw him this morning and stated that he was not acting correctly. He seemed to be having problems talking and getting around. Unsure exactly when the symptoms started. Patient's daughter states that how he is acting now is not like him. He is normally ambulatory. She states he is normally alert oriented and talkative and is able to things on his own. He did have COVID 2 weeks ago but has recovered from this. He is not on anticoagulation. Has never had a stroke in the past. Is taking all his medications. Related Data Home Medications Medication Instructions Recorded Confirmed aspirin 81 mg chewable tablet 81 mg PO DAILY 01/18/20 01/18/20 (Aspirin Childrens) atorvastatin 80 mg tablet 80 mg PO BEDTIME 01/18/20 01/18/20 finasteride 5 mg tablet 5 mg PO DAILY 01/18/20 01/18/20 furosemide 20 mg tablet 20 mg PO DAILY 01/18/20 01/18/20 isosorbide mononitrate 30 mg 30 mg PO DAILY 01/18/20 01/18/20 tablet,extended release 24 hr metoprolol succinate 50 mg 50 mg PO BID 01/18/20 01/18/20 tablet,extended release 24 hr omeprazole 40 mg capsule,delayed 40 mg PO DAILY 01/18/20 01/18/20 release polyvinyl alcohol 1.4 % eye drops 1 drp OPHTHALMIC (EYE) PRN PRN 01/18/20 01/18/20 (Artificial Tears (polyvinyl alcohol)) potassium chloride 10 mEq 10 meq PO DAILY 01/18/20 01/18/20 tablet,extended release triamcinolone acetonide 0.5 % 1 applic TOPICAL BID 01/18/20 01/18/20 topical cream Previous Rx's Medication Instructions Recorded amlodipine 5 mg tablet 5 mg PO DAILY #30 tab 06/05/20 losartan 50 mg tablet 50 mg PO .qhs #30 tab 06/05/20 Allergies Allergy/AdvReac Type Severity Reaction Status Date / Time JOSEFA Inhibitors Allergy Verified 06/05/20 11:18 lisinopril Allergy Verified 06/05/20 11:18 Review of Systems Review of Systems Narrative: Provided by patient and daughter who is at bedside Constitutional Constitutional: Denies headache(s) Eyes Eyes: Reports system reviewed and no additional complaints, except as documented ENT Ears, Nose, Mouth, and Throat: Denies headache(s) Cardiovascular Cardiovascular: Reports system reviewed and no additional complaints, except as documented Respiratory Respiratory: Reports system reviewed and no additional complaints, except as documented Gastrointestinal Gastrointestinal: Reports system reviewed and no additional complaints, except as documented Genitourinary Genitourinary: Reports system reviewed and no additional complaints, except as documented Musculoskeletal Musculoskeletal: Reports system reviewed and no additional complaints, except as documented Integumentary/Breasts Skin/Breast: Reports system reviewed and no additional complaints, except as documented Neurologic Neurologic: Denies headache(s) Psychiatric Psychiatric: Reports system reviewed and no additional complaints, except as documented Hematologic/Lymphatic On Anticoagulants: No Allergic/Immunologic Allergic/Immunologic: Reports system reviewed and no additional complaints, except as documented Patient History Medical History Alcohol abuse CAD (coronary artery disease) Chronic GERD Mild peripheral edema Obesities, morbid Surgical History History of coronary artery stent placement Social History household members: family Smoking Status: Never smoker Smoking Status: Never smoker alcohol intake frequency: 0-2 drinks per day Substance Use Type: does not use Exam Initial Vital Signs Initial Vital Signs: Vital Signs Temperature 98.3 F 02/15/21 14:43 Pulse Rate 84 02/15/21 14:43 Respiratory Rate 16 02/15/21 14:43 Blood Pressure 98/61 02/15/21 14:43 Pulse Oximetry 97 02/15/21 14:43 Const General: cooperative, healthy appearing and comfortable [facility] Head: normal to inspection, normocephalic and atraumatic Eyes Pupils: pupil size EOM: EOM intact bilaterally Resp Effort & Inspection: normal respiratory effort Auscultation: clear to auscultation bilaterally Cardio Rate: regular rate Rhythm: regular rhythm GI Inspection: normal to inspection Other: Reducible umbilical hernia External: normal external exam Skin General: no rashes or lesions noted Neuro General: patient alert, patient awake and moves all extremities Extrem General: normal to inspection and capillary refill normal Psych Appearance: grossly normal and well kempt Scores GCS [place] coma scale eye opening: Spontaneous [place] coma scale verbal response: Orientated Shirin coma scale motor response: Obey commands [place] coma scale total score: 15 NIH Stroke Scale Level of Conciousness: Alert, keenly responsive Ask month/age: Answers both questions correctly. Open/close eyes, close hand: Performs both tasks correctly Best gaze horizontal: Normal Visual fuentes: No visual loss Facial palsy: Minor paralysis, flattened nasolabial fold, asymmetry on smiling Left arm drift: No drift for full 10 sec Right arm drift: No drift for full 10 sec Left leg drift: No drift for full 5 sec Right leg drift: No drift for full 5 sec Limb ataxia: Absent Sensory on face/arms/legs: Normal, no sensory loss Best language: Mild to moderate, slurs some words Dysarthria: Normal Extinction or inattention: No abnormality Total NIH Stroke scale score: 2 Course Orders Ordered: ED Orders 02/15/21 14:47 CT head/brain wo con Stat 02/15/21 14:49 Urinalysis and Microscopic Stat Urine Drug Screen, Rapid Stat EKG-12 Lead Stat 02/15/21 14:51 COVID19 -Nasal swab/Pre-Proc Stat Complete Blood Count AUTO DIFF Stat Comprehensive Metabolic Panel Stat Ethanol (ETOH) Stat Lipase Stat Troponin & CK Cardiac Panel Stat 02/15/21 16:22 CT angio chest abdomen pelvis Stat XR chest 1V Stat Discontinued Medications Aspirin (Aspirin 325 Mg Tablet) 325 mg PO NOW ONE Stop: 02/15/21 16:25 Last Admin: 02/15/21 16:37 Dose: 325 mg Documented by: SHERRI Vital Signs Vital signs: Vital Signs - 8 hr 02/15/21 14:43 02/15/21 14:52 02/15/21 15:00 Temperature 98.3 F Pulse Rate 84 81 81 Respiratory Rate 16 23 22 Blood Pressure 98/61 103/56 L Pulse Oximetry 97 97 95 02/15/21 15:26 02/15/21 15:27 02/15/21 15:30 Temperature Pulse Rate 79 75 76 Respiratory Rate 20 19 19 Blood Pressure 95/56 L 96/55 L Pulse Oximetry 97 96 97 02/15/21 16:01 02/15/21 16:31 02/15/21 16:33 Temperature Pulse Rate 76 71 69 Respiratory Rate 19 19 18 Blood Pressure 120/59 L Pulse Oximetry 97 94 96 02/15/21 16:35 Temperature Pulse Rate 71 Respiratory Rate 19 Blood Pressure 116/72 Pulse Oximetry 96 Medical Decision Making Medical Records Medical records reviewed: Yes I reviewed the patient's medical records. Lab Data Lab results reviewed: Yes I reviewed the patient's lab results. Result diagrams: 02/15/21 14:51 02/15/21 14:51 Labs: Lab Results 02/15/21 02/15/21 02/15/21 Range/Units 14:51 14:51 14:51 WBC 12.3 H (4.5-11.0) X10^3/uL RBC 3.68 L (4.5-5.9) X10^6/uL Hgb 12.3 L (13.5-17.5) g/dL Hct 37.0 L (41-53) % MCV 100.4 H (80-100) fL MCH 33.5 (26-34) PG MCHC 33.3 (30-36) % RDW 13.1 (11.6-14.8) % Plt Count 469 H (150-400) X10^3/uL Neut % (Auto) 79.4 H (50-75) % Lymph % (Auto) 10.7 L (25-40) % [place] % (Auto) 8.3 (3-14) % Eos % (Auto) 1.4 L (2-4) % Baso % (Auto) 0.2 (0-2) % Neut # (Auto) 9800 H (4239-7155) /uL Lymph # (Auto) 1300 (9120-3722) /uL [place] # (Auto) 1000 H (0-900) /uL Eos # (Auto) 200 (0-450) /uL Baso # (Auto) 0 (0-100) /uL Sodium 134 L (137-145) mmol/L Potassium 5.1 (3.4-5.1) mmol/L Chloride 100 (98-107) mmol/L Carbon Dioxide 24 (22-32) mmol/L BUN 21 H (9-20) mg/dL Creatinine 1.50 H (0.66-1.25) mg/dL Estimated GFR 47.4 L (>60) mL/min BUN/Creatinine Ratio 14.0 (6-22) Glucose 153 H (80-110) mg/dL Calcium 9.6 (8.4-10.2) mg/dL Total Bilirubin 0.9 (0.2-1.3) mg/dL AST 81 H (17-59) IU/L ALT 100 H (<50) IU/L Alkaline Phosphatase 71 (38-126) U/L Total Creatine Kinase 305 H (55-170) U/L CK-MB (CK-2) 2.18 (<2.37) ng/mL CK-MB (CK-2) Rel Index 0.7 L (1.5-5.0) % Troponin I < 0.012 (0.01-0.034) ng/mL Total Protein 8.5 H (6.3-8.2) g/dL Albumin 4.3 (3.5-5.0) g/dL Globulin 4.2 H (1.7-4.1) g/dL Albumin/Globulin Ratio 1.0 (1.0-2.8) Lipase 208 (23-300) U/L Ethyl Alcohol < 10 ( - 10) mg/dL SARS-CoV-2 (PCR) (Negative) 02/15/21 Range/Units 14:51 WBC (4.5-11.0) X10^3/uL RBC (4.5-5.9) X10^6/uL Hgb (13.5-17.5) g/dL Hct (41-53) % MCV (80-100) fL MCH (26-34) PG MCHC (30-36) % RDW (11.6-14.8) % Plt Count (150-400) X10^3/uL Neut % (Auto) (50-75) % Lymph % (Auto) (25-40) % [place] % (Auto) (3-14) % Eos % (Auto) (2-4) % Baso % (Auto) (0-2) % Neut # (Auto) (4747-1576) /uL Lymph # (Auto) (0914-8799) /uL [place] # (Auto) (0-900) /uL Eos # (Auto) (0-450) /uL Baso # (Auto) (0-100) /uL Sodium (137-145) mmol/L Potassium (3.4-5.1) mmol/L Chloride (98-107) mmol/L Carbon Dioxide (22-32) mmol/L BUN (9-20) mg/dL Creatinine (0.66-1.25) mg/dL Estimated GFR (>60) mL/min BUN/Creatinine Ratio (6-22) Glucose (80-110) mg/dL Calcium (8.4-10.2) mg/dL Total Bilirubin (0.2-1.3) mg/dL AST (17-59) IU/L ALT (<50) IU/L Alkaline Phosphatase (38-126) U/L Total Creatine Kinase (55-170) U/L CK-MB (CK-2) (<2.37) ng/mL CK-MB (CK-2) Rel Index (1.5-5.0) % Troponin I (0.01-0.034) ng/mL Total Protein (6.3-8.2) g/dL Albumin (3.5-5.0) g/dL Globulin (1.7-4.1) g/dL Albumin/Globulin Ratio (1.0-2.8) Lipase (23-300) U/L Ethyl Alcohol ( - 10) mg/dL SARS-CoV-2 (PCR) Positive H (Negative) Point of Care Testing Glucose POC 163 Point of care testing: Point of Care Testing Glucose POC 163 Imaging Data Chest x-ray: Radiologist's Impression: [address] [address] XRay Report Signed Patient: Manfred Argueta MR#: [id number] : 1960 Acct:[id number] Age/Sex: 60 / M Date of Service: 02/15/21 Loc: 222-1 Accession Number: [id number] ?? Procedure: XR chest 1V Ordering Provider: Papito Rowe D.O. PROCEDURE:? XR CHEST 1V ? INDICATIONS:? eval for PNA ? TECHNIQUE:? One view of the chest was acquired.? ? COMPARISON:? [facility], CT, CT ANGIO CHEST ABDOMEN PELVIS, 02/15/2021, 16:27.? [facility], CR, XR CHEST 1V, 06/05/2020, 11:35.? [facility], CR, XR CHEST 1V, 01/18/2020, 2:07. ? FINDINGS:? ? Surgical changes and devices:? None.? ? Lungs and pleura:? Bilateral patchy airspace opacity.? No pleural effusions or pneumothorax.? ? Mediastinum:? Mediastinal contours appear unchanged.? Heart size is prominent, unchanged. ? ? Bones and chest wall:? No suspicious bony lesions.? Overlying soft tissues appear unremarkable.? ? IMPRESSION:? Bilateral patchy airspace opacity.? Findings most compatible with pneumonia.? COVID-19 could have this appearance. ? ? Dictated by: Jorge Tavarez M.D. on 02/15/2021 at 16:05 ? ? Approved by: Jorge Tavarez M.D. on 02/15/2021 at 16:06?? CT scan - head: Radiologist's Impression: [place] [address] CT Scan Report Signed Patient: Manfred Argueta MR#: [id number] : 1960 Acct:[id number] Age/Sex: 60 / M Date of Service: 02/15/21 Loc: ED Accession Number: [id number] ?? Procedure: CT head/brain wo con Ordering Provider: Papito Rowe D.O. PROCEDURE:? CT HEAD/BRAIN WO CON ? INDICATIONS:? slurred speech ? TECHNIQUE:? Noncontrast 4.5 mm thick angled axial sections acquired from the foramen magnum to the vertex, with coronal and sagittal reformats.? For radiation dose reduction, the following was used:? automated exposure control, adjustment of mA and/or kV according to patient size.? ? COMPARISON:? None. ? FINDINGS:? Image quality:? Excellent.? ? CSF spaces:? Basal cisterns are patent.? No extra-axial fluid collections.? Ventricles are normal in size and shape.? ? Brain:? No midline shift.? No intracranial masses or hemorrhage.? No area of hypodensity in a large vascular distribution to suggest acute infarction. Periventricular hypodensity consistent with chronic microvascular ischemic change. Age-related parenchymal loss. ? Skull and face:? Calvarium and visualized facial bones are intact, without suspicious lesions.? ? Sinuses:? Mucosal thickening in the bilateral maxillary sinuses.? Mucosal thickening in the left sphenoid sinus.? Mastoids are clear. ? IMPRESSION:? No acute intracranial abnormality. ? Chronic microvascular ischemic disease. ? ? Dictated by: Jorge Tavarez M.D. on 02/15/2021 at 14:43 ? ? Approved by: Jorge Tavarez M.D. on 02/15/2021 at 14:46? CT scan - abdomen/pelvis: Radiologist's Impression: [place] [address] CT Scan Report Signed Patient: Manfred Argueta MR#: [id number] : 1960 Acct:[id number] Age/Sex: 60 / M Date of Service: 02/15/21 Loc: 222-1 Accession Number: [id number] ?? Procedure: CT angio chest abdomen pelvis Ordering Provider: Papito Rowe D.O. PROCEDURE:? CT ANGIO CHEST ABDOMEN PELVIS ? INDICATIONS:? possible stroke ? TECHNIQUE:? Precontrast 5 mm thick sections acquired from the lung apices to the iliac crests.? After the administration of intravenous contrast, 2.5 mm thick sections again acquired from the lung apices to the iliac crests.? Maximum intensity projection (MIP) oblique sagittal and coronal reformats were then acquired.? For radiation dose reduction, the following was used:? automated exposure control.? ? COMPARISON:? [facility], CR, XR CHEST 1V, 02/15/2021, 16:40. ? FINDINGS:? Image quality:? Excellent.? ? AORTA:? No acute aortic syndrome.? No aortic dissection. Moderate plaque in the abdominal aorta and iliac arteries. ? CHEST:? Lungs and pleura:? Bilateral patchy airspace opacity, moderate severity.? No pleural effusions or pneumothorax.? Central and peripheral airways are patent and normal in caliber.? ? Mediastinum:? Heart size is normal.? Three-vessel coronary artery calcifications.? No pericardial effusion.? Shotty mediastinal lymph nodes.? Central pulmonary arteries are normal in size.? No pulmonary embolism.? Esophagus is normal in caliber.? Small hiatal hernias.? ? Bones and chest wall:? No axillary adenopathy by size criteria.? Thyroid gland is unremarkable.? No suspicious bony lesions.? No vertebral body compression fractures.? ? ? ABDOMEN:? Vasculature:? Left gastric ridge in its off of the aortic arch, a separate origin.? There is mild plaque in the celiac artery.? There is extensive plaque in the SMA.? Renal arteries are also patent.? Moderate plaque at the renal artery origins.? Mild plaque in the ADAM. ? Solid organs:? Liver is normal in size and enhancement.? Gallbladder is unremarkable .? Biliary system is non dilated.? Pancreas enhances normally.? Spleen is normal in size and enhancement.? No adrenal nodules.? Both kidneys are normal in size and enhancement, without hydronephrosis.? Large simple left renal cyst measuring 11.1 cm.? Small right renal cyst.? ? Peritoneum and bowel:? No free fluid or air.? Bowel loops are normal in caliber and wall thickness.? Normal appendix.? Diverticulosis.? Prominent stool in the rectum.? ? Nodes and vessels:? No retroperitoneal or mesenteric adenopathy by size criteria.? Inferior vena cava is normal in morphology.? ? Miscellaneous:? No ventral hernias.? ? ? PELVIS:? Genitourinary:? Bladder wall thickness is normal.? Distended.? Prostatomegaly.? ? Miscellaneous:? No inguinal hernias or adenopathy.? No ventral hernias.? ? Bones:? No suspicious bony lesions.? No vertebral body compression fractures.? ? ? IMPRESSION:? ? 1. No aortic dissection.? No pulmonary embolism. ? 2. Moderate bilateral patchy airspace opacity.? Findings suggestive of pneumonia.? COVID-19 pneumonia could have this appearance. ? 3. Shotty mediastinal lymph nodes.? Favor reactive etiology. ? 4. Large simple left renal cyst.? ? 5. Moderate to severe atherosclerotic plaque in the abdominal and pelvic arteries.? Dictated by: Jorge Tavarez M.D. on 02/15/2021 at 16:08 ? ? Approved by: Jorge Tavarez M.D. on 02/15/2021 at 16:19?? ECG Data Attestation: I personally reviewed and interpreted this ECG as follows: Interpretation: Sinus rhythm Frequent PACs Ventricular rate 83 LVH Normal axis Normal QRS Normal QTC No ST T wave changes MDM Narrative Medical decision making narrative: Patient's last known normal was 2 days ago. He is with his daughter. His daughter states that how he is talking today is not consistent with his normal. Unsure of the onset of the symptoms. Not a candidate for tPA. His NIH score of 3. Head CT is unremarkable. X-rays unremarkable. Discussed the case with Dr. Mari. We will admit for further evaluation and treatment. Discussed this with the patient and family at bedside. They expressed understanding and agreement. Discharge Plan Departure Patient Disposition: Admitted as Observation Clinical Impression: Brain TIA Admit Date/Time: 02/15/21 16:53 Admit Provider: Keny Mari
[2021-02-15 15:05] LABS: Add Manual Diff / Slide Review NO; Basophils Absolute Auto 0 /uL (0-100); Basophils Percent Auto 0.2 % (0-2); Eosinophils Absolute Auto 200 /uL (0-450); Eosinophils Percent Auto 1.4 % (2-4); Hemoglobin 12.3 g/dL (13.5-17.5); Lymphocytes Absolute Auto 1300 /uL (1100-4500); Lymphocytes Percent Auto 10.7 % (25-40); Mean Corpuscular HGB Conc 33.3 % (30-36); Mean Corpuscular Hemoglobin 33.5 PG (26-34); Mean Corpuscular Volume 100.4 fL (80-100); Monocytes Absolute Auto 1000 /uL (0-900); Monocytes Percent Auto 8.3 % (3-14); Neutrophils Absolute Auto 9800 /uL (1500-7000); Neutrophils Percent Auto 79.4 % (50-75); Platelet Count 469 X10^3/uL (150-400); Red Blood Cell Count 3.68 X10^6/uL (4.5-5.9); Red Cell Distribution Width 13.1 % (11.6-14.8); White Blood Cell Count 12.3 X10^3/uL (4.5-11.0)
[2021-02-15 15:10] LABS: Creatine Kinase 305 U/L (55-170)
[2021-02-15 15:12] LABS: Alanine Aminotransferase 100 IU/L (<50); Albumin 4.3 g/dL (3.5-5.0); Alkaline Phosphatase 71 U/L (38-126); Aspartate Aminotransferase 81 IU/L (17-59); Bilirubin Total 0.9 mg/dL (0.2-1.3); Blood Urea Nitrogen 21 mg/dL (9-20); Calcium 9.6 mg/dL (8.4-10.2); Carbon Dioxide 24 mmol/L (22-32); Chloride 100 mmol/L (98-107); Estimated Glomerular Filt Rate 47.4 mL/min (>60); Ethanol (ETOH) < 10 mg/dL; Globulin 4.2 g/dL (1.7-4.1); Glucose 153 mg/dL (80-110); Lipase 208 U/L (23-300); Potassium 5.1 mmol/L (3.4-5.1); Sodium 134 mmol/L (137-145); Total Protein 8.5 g/dL (6.3-8.2)
[2021-02-15 15:13] LABS: HEMOLYSIS 62 (0-50)
[2021-02-15 15:22] LABS: Troponin I < 0.012 ng/mL (0.01-0.034)
[2021-02-15 15:25] LABS: CKMB % Relative Index 0.7 % (1.5-5.0); COVID19 -Nasal RAPID POSITIVE (Negative); Creatine Kinase MB 2.18 ng/mL (<2.37)
--- NOTE | 2021-02-15 16:22 | DI.RAD.S_ITS ---
PROCEDURE: XR CHEST 1V INDICATIONS: eval for PNA TECHNIQUE: One view of the chest was acquired. COMPARISON: [facility], CT, CT ANGIO CHEST ABDOMEN PELVIS, 02/15/2021, 16:27. [facility], CR, XR CHEST 1V, 06/05/2020, 11:35. [facility], CR, XR CHEST 1V, 01/18/2020, 2:07. FINDINGS: Surgical changes and devices: None. Lungs and pleura: Bilateral patchy airspace opacity. No pleural effusions or pneumothorax. Mediastinum: Mediastinal contours appear unchanged. Heart size is prominent, unchanged. Bones and chest wall: No suspicious bony lesions. Overlying soft tissues appear unremarkable. IMPRESSION: Bilateral patchy airspace opacity. Findings most compatible with pneumonia. COVID-19 could have this appearance. Dictated by: Jorge Tavarez M.D. on 02/15/2021 at 16:05 Approved by: Jorge Tavarez M.D. on 02/15/2021 at 16:06
--- NOTE | 2021-02-15 16:22 | DI.CT.S_ITS ---
PROCEDURE: CT ANGIO CHEST ABDOMEN PELVIS INDICATIONS: possible stroke TECHNIQUE: Precontrast 5 mm thick sections acquired from the lung apices to the iliac crests. After the administration of intravenous contrast, 2.5 mm thick sections again acquired from the lung apices to the iliac crests. Maximum intensity projection (MIP) oblique sagittal and coronal reformats were then acquired. For radiation dose reduction, the following was used: automated exposure control. COMPARISON: [facility], CR, XR CHEST 1V, 02/15/2021, 16:40. FINDINGS: Image quality: Excellent. AORTA: No acute aortic syndrome. No aortic dissection. Moderate plaque in the abdominal aorta and iliac arteries. CHEST: Lungs and pleura: Bilateral patchy airspace opacity, moderate severity. No pleural effusions or pneumothorax. Central and peripheral airways are patent and normal in caliber. Mediastinum: Heart size is normal. Three-vessel coronary artery calcifications. No pericardial effusion. Shotty mediastinal lymph nodes. Central pulmonary arteries are normal in size. No pulmonary embolism. Esophagus is normal in caliber. Small hiatal hernias. Bones and chest wall: No axillary adenopathy by size criteria. Thyroid gland is unremarkable. No suspicious bony lesions. No vertebral body compression fractures. ABDOMEN: Vasculature: Left gastric ridge in its off of the aortic arch, a separate origin. There is mild plaque in the celiac artery. There is extensive plaque in the SMA. Renal arteries are also patent. Moderate plaque at the renal artery origins. Mild plaque in the ADAM. Solid organs: Liver is normal in size and enhancement. Gallbladder is unremarkable . Biliary system is non dilated. Pancreas enhances normally. Spleen is normal in size and enhancement. No adrenal nodules. Both kidneys are normal in size and enhancement, without hydronephrosis. Large simple left renal cyst measuring 11.1 cm. Small right renal cyst. Peritoneum and bowel: No free fluid or air. Bowel loops are normal in caliber and wall thickness. Normal appendix. Diverticulosis. Prominent stool in the rectum. Nodes and vessels: No retroperitoneal or mesenteric adenopathy by size criteria. Inferior vena cava is normal in morphology. Miscellaneous: No ventral hernias. PELVIS: Genitourinary: Bladder wall thickness is normal. Distended. Prostatomegaly. Miscellaneous: No inguinal hernias or adenopathy. No ventral hernias. Bones: No suspicious bony lesions. No vertebral body compression fractures. IMPRESSION: 1. No aortic dissection. No pulmonary embolism. 2. Moderate bilateral patchy airspace opacity. Findings suggestive of pneumonia. COVID-19 pneumonia could have this appearance. 3. Shotty mediastinal lymph nodes. Favor reactive etiology. 4. Large simple left renal cyst. 5. Moderate to severe atherosclerotic plaque in the abdominal and pelvic arteries. Dictated by: Jorge Tavarez M.D. on 02/15/2021 at 16:08 Approved by: Jorge Tavarez M.D. on 02/15/2021 at 16:19
[2021-02-15] MEDS: ASPIRIN 325 MG TABLET PO (16:37)
[2021-02-15 18:10] LABS: Ammonia (NH3) < 9 umol/L (9-30)
--- NOTE | 2021-02-15 19:24 | DI.MRI.S_ITS ---
PROCEDURE: MR STROKE, MRI neck angiogram INDICATIONS: tia vs cva? TECHNIQUE: Brain: Noncontrast axial T1 spin echo, axial T2 fast spin echo, sagittal and axial FLAIR, coronal T2 fast spin echo, axial gradient echo, axial diffusion and ADC through the brain. MR angiogram: Noncontrast axial 3D [id number] MR angiogram, with maximum intensity projection reformats of the internal carotid arteries and posterior circulation then performed. MR neck angiogram: COMPARISON: [facility], CT, CT ANGIO CHEST ABDOMEN PELVIS, 02/15/2021, 16:27. [facility], CT, CT HEAD/BRAIN WO CON, 02/15/2021, 15:11. FINDINGS: Image quality: Fair. Several sequences are degraded by artifact. BRAIN: CSF Spaces: Basal cisterns are patent. No extra-axial fluid collections. Ventricles are normal in size and shape. Brain: No midline shift. No intracranial bleeds or mass effects. The brainstem appears normal. Nonspecific periventricular FLAIR/T2 hyperintense signal. There are several periventricular foci of restricted diffusion bilaterally, (). There are multiple small foci of susceptibility artifact predominantly in a periventricular distribution. However, there are a few foci of the brainstem and right occipital lobe. Normal intravascular flow voids are present. Age-related parenchymal loss. Skull and face: Calvarium has normal marrow signal. Orbits appear normal. Sinuses: Paranasal sinus mucosal thickening. Mastoid are clear. BRAIN MR ANGIOGRAM: Anterior circulation: Intracranial internal carotid arteries demonstrate normal size and intraluminal flow signal. The flow within the paired anterior cerebral arteries is normal and symmetric. The flow within the middle cerebral arteries is normal and symmetric. The anterior communicating artery is seen. No stenoses, occlusions, or aneurysms. Posterior circulation: The visualized vertebral arteries demonstrate normal caliber. There is nonvisualization of right V4 vertebral artery. The flow within the posterior cerebral arteries is normal and symmetric. Note is made of normal appearing posterior cerebral arteries. No stenoses, occlusions, or aneurysms. NECK MR ANGIOGRAM: Common carotid arteries are patent. There is approximately 50% stenosis in the right and left ICA origins. The opacification is irregular suggesting calcified plaque. The left vertebral artery is slightly dominant. The distal V4 right vertebral artery does not opacify. The left vertebral artery is patent. IMPRESSION: 1. Multiple small bilateral periventricular foci of restricted diffusion. 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 2. Suspected occlusion of the right V4 segment vertebral artery. No additional large vessel occlusion seen 3. Approximately 50% stenosis in the bilateral ICA origins. Comment: Findings were discussed with Keny Mari MD at the time of dictation. Dictated by: Jorge Tavarez M.D. on 02/16/2021 at 11:30 Approved by: Jorge Tavarez M.D. on 02/16/2021 at 12:01
[2021-02-15 19:52] LABS: Creatinine Urine Random 141.1 mg/dL; Sodium Urine Random 22 mmol/L (30-90)
--- NOTE | 2021-02-15 20:34 | PM.HP.1 ---
History of Present Illness History of Present Illness Date Patient Seen: 02/15/21 Time Patient Seen: 17:00 Chief complaint: Incoherent post covid, slurred speech Narrative: Mr. Argueta is a 60M with PMH CAD s/p stents, HTN, HL, GERD, obesity who comes in with confusion. Apparently patient has not been feeling well for a couple weeks. He has had one dose of vaccine for COVID prior to not feeling well. He had symptoms of cough, shortness of breath fever. He was not tested for COVID. Multiple family members were also tested and were COVID positive. He never felt completely better, but still with some fatigue, however he was recovering according to family at bedside. Over the last 2 days he has not been at his mental status baseline. He has been more confused, not acting his normal self. He has problems with speaking normally. He usually ambulates without issues, but has been having balance issues. He has been slurring speech. No focal weakness noted. He has never had a history of a stroke. He does acknowledge significant alcohol use and says 4-5 maybe mroe shots of alcohol a day. His last drink he says was two weeks ago. He is not having fevers/chills, no headaches, no chest pain, no shortness of breath, no cough. No abdominal pain, nausea, vomiting. No diarrhea. No dysuria. In the ED workup was done he was found to have a temperate of 98.3, heart rate 84, respiratory 16, blood pressure 98/61, sats 97% on room air. Labs notable for WBC 12.3, Hgb 12.3, BUN 21, creatinine 1.5, AST 81, ALT 100. Ammonia negative. Troponin negative. Alcohol negative. COVID positive. Chest xray showed bilateral infiltrates. CT head showed no acute process. Family history: Father cancer (thinks esophageal) Patient History Medical History Alcohol abuse CAD (coronary artery disease) Chronic GERD Mild peripheral edema Obesities, morbid Surgical History History of coronary artery stent placement Family & Social History Social History: household members family Safety & Behavioral: Feels Safe in Current Yes Environment Been Physically Hurt or No Threatened By a Person Tobacco & Substance use: Smoking Status Never smoker alcohol intake frequency 0-2 drinks per day Substance Use Type does not use Meds Home Medications and Allergies Home Medications Medication Instructions Recorded Confirmed Type aspirin 81 mg chewable tablet 81 mg PO DAILY 01/18/20 02/15/21 History (Aspirin Childrens) atorvastatin 80 mg tablet 80 mg PO BEDTIME 01/18/20 02/15/21 History finasteride 5 mg tablet 5 mg PO DAILY 01/18/20 02/15/21 History metoprolol succinate 50 mg 100 mg PO BID 01/18/20 02/15/21 History tablet,extended release 24 hr omeprazole 40 mg capsule,delayed 40 mg PO DAILY 01/18/20 02/15/21 History release polyvinyl alcohol 1.4 % eye drops 1 drp OPHTHALMIC (EYE) PRN PRN 01/18/20 01/18/20 History (Artificial Tears (polyvinyl alcohol)) potassium chloride 10 mEq 10 meq PO DAILY 01/18/20 01/18/20 History tablet,extended release amlodipine 5 mg tablet 5 mg PO DAILY 02/15/21 02/15/21 History clobetasol 0.05 % topical cream 1 applic TOPICAL USEASDIRECTD 02/15/21 02/15/21 History isosorbide mononitrate 60 mg 60 mg PO BID 02/15/21 02/15/21 History tablet,extended release 24 hr losartan 50 mg tablet 100 mg PO DAILY 02/15/21 02/15/21 History torsemide 20 mg tablet 20 mg PO DAILY 02/15/21 02/15/21 History Allergies Allergy/AdvReac Type Severity Reaction Status Date / Time JOSEFA Inhibitors Allergy Verified 06/05/20 11:18 lisinopril Allergy Verified 06/05/20 11:18 Review of Systems Review of Systems Narrative: 14 systems reviewed and negative aside from what is noted in HPI Exam Vital Signs (past 8 hours): - 02/15/21 14:43 02/15/21 14:52 02/15/21 15:00 Temperature 98.3 F Pulse Rate 84 81 81 Respiratory Rate 16 23 22 Blood Pressure 98/61 103/56 L Pulse Oximetry 97 97 95 02/15/21 15:26 02/15/21 15:27 02/15/21 15:30 Temperature Pulse Rate 79 75 76 Respiratory Rate 20 19 19 Blood Pressure 95/56 L 96/55 L Pulse Oximetry 97 96 97 02/15/21 16:01 02/15/21 16:31 02/15/21 16:33 Temperature Pulse Rate 76 71 69 Respiratory Rate 19 19 18 Blood Pressure 120/59 L Pulse Oximetry 97 94 96 02/15/21 16:35 02/15/21 18:35 02/15/21 20:31 Temperature 98.1 F 97.5 F L Pulse Rate 71 71 67 Respiratory Rate 19 17 16 Blood Pressure 116/72 126/70 118/82 Pulse Oximetry 96 97 97 Oxygen Delivery Method Room Air Oxygen Flow Rate 0 Narrative Exam Narrative: GEN: no acute distress HEENT: moist mucous membranes NECK: no jvd, trachea midline CV: regular rate and rhythm PULM: coarse breath sounds ABD: soft, nontender, suprapubic distended, normal bowel sounds EXT: warm and well perfused with no edema NEURO: fidgeting, slightly confused, oriented, restless, no focal deficits, CN 2-12 intact, 5/5 strength upper and lower extremities, normal rapid alternating movements, normal heel to damon, normal reflexes, normal babinski, right facial droop, slurred speech Objective Labs Result Diagrams: 02/15/21 14:51 02/15/21 14:51 Labs: Laboratory Results - last 24 hr 02/15/21 02/15/21 02/15/21 14:51 14:51 14:51 WBC 12.3 H RBC 3.68 L Hgb 12.3 L Hct 37.0 L MCV 100.4 H MCH 33.5 MCHC 33.3 RDW 13.1 Plt Count 469 H Neut % (Auto) 79.4 H Lymph % (Auto) 10.7 L [place] % (Auto) 8.3 Eos % (Auto) 1.4 L Baso % (Auto) 0.2 Neut # (Auto) 9800 H Lymph # (Auto) 1300 [place] # (Auto) 1000 H Eos # (Auto) 200 Baso # (Auto) 0 Sodium 134 L Potassium 5.1 Chloride 100 Carbon Dioxide 24 BUN 21 H Creatinine 1.50 H Estimated GFR 47.4 L BUN/Creatinine Ratio 14.0 Glucose 153 H Calcium 9.6 Total Bilirubin 0.9 AST 81 H ALT 100 H Alkaline Phosphatase 71 Ammonia Total Creatine Kinase 305 H CK-MB (CK-2) 2.18 CK-MB (CK-2) Rel Index 0.7 L Troponin I < 0.012 Total Protein 8.5 H Albumin 4.3 Globulin 4.2 H Albumin/Globulin Ratio 1.0 Lipase 208 Ur Random Sodium Urine Creatinine Ethyl Alcohol < 10 SARS-CoV-2 (PCR) 02/15/21 02/15/21 02/15/21 14:51 18:30 Unknown WBC RBC Hgb Hct MCV MCH MCHC RDW Plt Count Neut % (Auto) Lymph % (Auto) [place] % (Auto) Eos % (Auto) Baso % (Auto) Neut # (Auto) Lymph # (Auto) [place] # (Auto) Eos # (Auto) Baso # (Auto) Sodium Potassium Chloride Carbon Dioxide BUN Creatinine Estimated GFR BUN/Creatinine Ratio Glucose Calcium Total Bilirubin AST ALT Alkaline Phosphatase Ammonia < 9 L Total Creatine Kinase CK-MB (CK-2) CK-MB (CK-2) Rel Index Troponin I Total Protein Albumin Globulin Albumin/Globulin Ratio Lipase Ur Random Sodium 22 L Urine Creatinine 141.1 Ethyl Alcohol SARS-CoV-2 (PCR) Positive H Assessment & Plan Assessment & Plan narrative: Mr. Argueta is a 60M with PMH of CAD s/p stents, alcohol abuse, recent COVID infection who presents with altered mental status. 1. Acute encephalopathy -etiology unclear -with leukocytosis could be infectious process, could be secondary to COVID, ammonia negative so unlikely hepatic in origin, could possibly be neurologic such as CVA -ordered for infectious workup UA, blood cultures, chest xray, sputum culture, respiratory panel -CT abdomen showed distended bladder, but no other acute process 2. Slurred speech -also has evidence of right facial droop -working up for TIA vs CVA -received aspirin in ED, continue aspirin, and plavix, continue high dose statin -CT head negative for acute process -plan for MR head and CT angio head/neck for further evaluation -hold on CT angio given contrast load from CTA -NIH qshift -order for a1c, lipids -order PT/OT/speech 3. COVID pneumonia -has significant infiltrates on xray -no respiratory symptoms -hold on starting remdesivir, dexamethasone as patient has normal oxygen 4. MARISOL -etiology unclear -did have distended bladder, possibly has component of bladder obstruction -ordered for bladder scan and straight cath -ordered IVF and monitor creatinine closely -hold losartan, torsemide 5. CAD s/p stents -continue aspirin/statin as above -continue metoprolol, imdur 6. Hypertension -hold losartan -consider resuming amlodipine 7. Anemia -mild continue to trend -no need for transfusion 8. Transaminitis -mild, possibly secondary to alcohol abuse -continue to trend 9. Alcohol abuse -patient states has not had a drink in 2 weeks -EtOH level negative -outside window of withdrawal 10. Obesity -BMI 36.2 -encouraged lifestyle modifications 11. BPH -continue finasteride DVT ppx: heparin sc DIET: heart healthy CODE: Full Proxy: Юлия Argueta, Daughter I have utilized all available immediate resources to obtain, update, or review the patient's current medications. Time Spent With Patient Critical Care time: I spent a total of [] minutes of critical care time on this patient's care today; this time is exclusive of procedural time. Quality VTE Deep Vein Thrombosis/Pulmonary Embolism Present on Admission: No MIPS - Admit I confirm the patient?s Advance Care Plan is present, Code status is documented, Surrogate decision maker is in patient?s record [If Yes, STOP here]: Yes
[2021-02-15] MEDS: SODIUM CHLORIDE 0.9% 1,000 ML 1000 ML IV (21:38)
[2021-02-15] MEDS: METOPROLOL ER 50 MG TABLET 100 MG PO (21:39)
[2021-02-15] MEDS: ATORVASTATIN 20 MG TABLET 80 MG PO (21:40)
[2021-02-15] MEDS: ISOSORBIDE MONONITRATE ER 30 MG TABLET 60 MG PO (21:40)
[2021-02-15 21:52] LABS: Procalcitonin 0.05 ng/mL (<0.5)
[2021-02-15 22:03] LABS: Hemoglobin A1C% w Est Avg Glu 6.6 % (4.0-6.0)
[2021-02-15] MEDS: SODIUM CHLORIDE 0.9% 1,000 ML 125 ML IV (22:30)
--- NOTE | 2021-02-15 23:05 | PC.NURSE ---
Pt admitted this evening with altered mental status. Pt was diagnose with covid 2 weeks ago but according to family pt hasn't been acting his marta. Pt is alert and oriented but does have sole slight confusion. NIH OF 2. pt impulsive when he needs to urinate. Pt received 1 L NS BOLUS due to SBP's in the low 90's in the ER. METOPROLOL HELD DUE TO THIS.
[2021-02-15 23:52] LABS: COVID19 - ADMIT (NP swab/PCR) Negative (Negative)
[2021-02-15 23:57] LABS: Bacteria Urine None Seen
[2021-02-16] VITALS (11 sets, daily range): BP systolic 122–143; BP diastolic 73–91; PULSE 70–79; RESP 16–18; TEMP 36.5–36.8; O2SAT 95–99
[2021-02-16 00:14] LABS: Adenovirus Not Detected (Not Detect); Bordetella pertussis Not Detected (Not Detecte); Chlamydophila pneumoniae Not Detected (Not Detect); Coronavirus HKU1 Not Detected (Not Detect); Coronavirus NL 63 Not Detected (Not Detect); Coronavirus OC43 Not Detected (Not Detect); Human Metapneumovirus Not Detected (Not Detect); Human Rhinovirus/Enterovirus Not Detected (Not Detect); Influenza A Not Detected (Not Detect); Influenza B Not Detected (Not Detect); Mycoplasma pneumoniae Not Detected (Not Detect); Parainfluenza Virus 1 Not Detected (Not Detect); Parainfluenza Virus 2 Not Detected (Not Detect); Parainfluenza Virus 3 Not Detected (Not Detect); Parainfluenza Virus 4 Not Detected (Not Detect); Respiratory Syncytial Virus Not Detected (Not Detect)
[2021-02-16 00:43] LABS: Appearance Urine UA CLEAR; Bilirubin Urine UA NEGATIVE (NEGATIVE); Color Urine UA YELLOW; Glucose Urine UA NEGATIVE (Negative); Ketones Urine UA NEGATIVE (NEGATIVE); Leukocyte Esterase Urine UA 2+ (NEGATIVE); Nitrite Urine UA NEGATIVE (Negative); Occult Blood Urine UA TRACE-INTACT (Negative); Protein Urine UA NEGATIVE (Negative); Specific Gravity Urine UA <=1.005 (1.000-1.035); Urobilinogen Urine UA 0.2 E.U./dL (0.2)
[2021-02-16 00:47] LABS: UR Morphine/Opiate cutoff 300 Negative (Negative); Ur Creatinine 50 (Normal); Ur Specific Gravity <1.005 (Normal); Urine Amphetamines Negative (Negative); Urine Barbiturates Negative (Negative); Urine Benzodiazepines Negative (Negative); Urine Cocaine Negative (Negative); Urine MDMA Negative (Negative); Urine Methadone Negative (Negative); Urine Methamphetamines Negative (Negative); Urine Oxycodone Negative (Negative); Urine Phencyclidine Negative (Negative); Urine Tetrahydrocannabinol Negative (Negative); Urine Tricyclic Antidepressant Negative (Negative); Urine pH 6 (Normal)
[2021-02-16 01:03] LABS: RBC Urine 0-1/HPF (0-5/HPF); Squamous Epithelial Cell Urine 1-5 /HPF (0-5/HPF); WBC Urine 5-10/HPF (0-5/HPF)
[2021-02-16 01:04] LABS: Culture Indicated Urine Specimen Cultured; Hyaline Casts Urine 0-1/LPF
[2021-02-16 01:58] LABS: SARS- CoV-2 Not Detected (Not Detecte)
[2021-02-16 02:01] LABS: Coronavirus 229E Not Detected (Not Detect)
--- NOTE | 2021-02-16 02:11 | PC.NURSE ---
0200 Repeat [id number] (VISION MIXER swab/PCR) stat has been collected & sent to the lab. Will monitor results.
[2021-02-16 03:09] LABS: COVID19 - ADMIT (NP swab/PCR) POSITIVE (Negative)
[2021-02-16 05:01] LABS: Add Manual Diff / Slide Review NO; Basophils Absolute Auto 100 /uL (0-100); Basophils Percent Auto 0.8 % (0-2); Eosinophils Absolute Auto 400 /uL (0-450); Eosinophils Percent Auto 3.5 % (2-4); Hematocrit 34.2 % (41-53); Hemoglobin 11.4 g/dL (13.5-17.5); Lymphocytes Absolute Auto 2000 /uL (1100-4500); Lymphocytes Percent Auto 19.9 % (25-40); Mean Corpuscular HGB Conc 33.4 % (30-36); Mean Corpuscular Hemoglobin 33.8 PG (26-34); Mean Corpuscular Volume 100.9 fL (80-100); Monocytes Absolute Auto 900 /uL (0-900); Monocytes Percent Auto 9.2 % (3-14); Neutrophils Absolute Auto 6800 /uL (1500-7000); Neutrophils Percent Auto 66.6 % (50-75); Platelet Count 420 X10^3/uL (150-400); Red Blood Cell Count 3.39 X10^6/uL (4.5-5.9); Red Cell Distribution Width 13.1 % (11.6-14.8); White Blood Cell Count 10.2 X10^3/uL (4.5-11.0)
[2021-02-16 05:55] LABS: BUN Creatinine Ratio 16.2 (6-22); Blood Urea Nitrogen 22 mg/dL (9-20); Calcium 8.7 mg/dL (8.4-10.2); Carbon Dioxide 27 mmol/L (22-32); Chloride 102 mmol/L (98-107); Estimated Glomerular Filt Rate 53.1 mL/min (>60); Glucose 100 mg/dL (80-110); HEMOLYSIS < 15 (0-50); Phosphorous 4.1 mg/dL (2.3-3.7); Sodium 136 mmol/L (137-145)
[2021-02-16] MEDS: SODIUM CHLORIDE 0.9% 1,000 ML 125 ML IV (06:30)
[2021-02-16 06:44] LABS: Adenovirus Not Detected (Not Detect); B. parapertussis Not Detected (Not Detecte); Bordetella pertussis Not Detected (Not Detecte); Coronavirus 229E Not Detected (Not Detect); Coronavirus HKU1 Not Detected (Not Detect); Coronavirus NL 63 Not Detected (Not Detect); Coronavirus OC43 Not Detected (Not Detect); Human Metapneumovirus Not Detected (Not Detect); Human Rhinovirus/Enterovirus Not Detected (Not Detect); Influenza A Not Detected (Not Detect); Influenza B Not Detected (Not Detect); Parainfluenza Virus 1 Not Detected (Not Detect); Parainfluenza Virus 2 Not Detected (Not Detect); Parainfluenza Virus 3 Not Detected (Not Detect); Parainfluenza Virus 4 Not Detected (Not Detect); Respiratory Syncytial Virus Not Detected (Not Detect)
[2021-02-16 06:45] LABS: Chlamydophila pneumoniae Not Detected (Not Detect)
[2021-02-16 06:46] LABS: Mycoplasma pneumoniae Not Detected (Not Detect)
[2021-02-16] MEDS: cefTRIAXone 1,000 MG in SODIUM CHLORIDE 0.9% 100 ML 200 ML IV (08:18)
--- NOTE | 2021-02-16 09:11 | CM.DANOTE ---
DCP: Case received, EMR reviewed. Did not meet with patient secondary to being COVID positive, but was able to obtain some information from nurse and EMR, regarding some of patient's baseline status. DCP assessment was completed based on information currently available. Patient is a 60 year old male who admitted yesterday afternoon to the care of the hospitalist team. PCP: Dr. Wagner. Payer: confirmed: [facility]/Medicaid. Patient came to the hospital via private vehicle secondary to having some confusion, as well as some slurred speech. Patient is COVID positive, and had received one dose of his vaccine. Patient was diagnosed with COVID/pneumonia, and is having MRI today to rule out CVA. Patient also drinks between 4-5 shots of alcohol a day, but according to notes, has not had a drink in 2 weeks, and alcohol levels negative. Patient has two daughters, Юлия and Louann, with Юлия being the point of contact. It is unclear at this time if patient is a , does not have a spouse listed in records. Notes indicate that patient is independent with ambulation at his baseline. He resides in [place], as both of his daughters do as well. Was unable to go into patient's room secondary to his being COVID positive. P: DCP to continue to follow. Will see how he does with P.T. today. Patient should be able to go home when stable. Will attempt to get more information from the therapy team today. Will also discuss patient during team rounds. Nikky Solomon RN/Substation Operator
[2021-02-16] MEDS: METOPROLOL ER 50 MG TABLET 100 MG PO ×2 (09:48→20:51)
[2021-02-16] MEDS: AMLODIPINE 5 MG TABLET PO (09:48)
[2021-02-16] MEDS: CLOPIDOGREL 75 MG TABLET PO (09:48)
[2021-02-16] MEDS: HEPARIN 5,000 UNIT/ML VIAL 5000 UNIT SUBCUT ×2 (09:48→20:51)
[2021-02-16] MEDS: PANTOPRAZOLE DR 40 MG TABLET PO (09:48)
[2021-02-16] MEDS: ISOSORBIDE MONONITRATE ER 30 MG TABLET 60 MG PO ×2 (09:48→20:50)
[2021-02-16] MEDS: LORazepam 2 MG/ML INJ 1 MG IV (09:52)
[2021-02-16] MEDS: FINASTERIDE 5 MG TABLET PO (09:52)
[2021-02-16] MEDS: ASPIRIN EC 81 MG TABLET PO (09:52)
[2021-02-16 09:59] LABS: Alanine Aminotransferase 78 IU/L (<50); Albumin 3.7 g/dL (3.5-5.0); Alkaline Phosphatase 65 U/L (38-126); Aspartate Aminotransferase 56 IU/L (17-59); Bilirubin Total 0.6 mg/dL (0.2-1.3); Bilirubin Unconjugated 0.4 mg/dL (0.0-1.1); Globulin 3.8 g/dL (1.7-4.1); HEMOLYSIS < 15 (0-50); Total Protein 7.5 g/dL (6.3-8.2)
--- NOTE | 2021-02-16 12:05 | PT.IIE ---
Medical History (Last Reviewed 02/15/21 @ 15:23 by Papito Rowe DO) Alcohol abuse CAD (coronary artery disease) Chronic GERD Mild peripheral edema Obesities, morbid Physical Therapy Inpatient Evaluation/Re-Eval M1 PT/OT-IP Prior Functional Status Start: 02/16/21 08:50 Freq: NEEDED Status: Active Protocol: Document 02/16/21 12:05 AW (Rec: 02/16/21 12:23 AW [id number]) Medical Review Prior Functional Status Medical History Reviewed Yes Communication WNL. Pt is typically an effective verbal communicator. Mobility and Gait Pt denies need for any assistive device, stating he is independent with all mobility at baseline. Activities of Daily Living and IADL's Independent. Pt drives. Social History Household Members family Living Arrangements House Number of Floors (Floors) Two Floors Number of Stairs To Enter/Railing? 7 FERMIN with wide bilateral rails Home Environment Standard Height Toilet,Tub/ Shower Home Equipment Grab Bars In Shower Additional Social History Comment Pt lives with his daughter, Shila, who works outside the home. He has other daughters who live nearby in [place]. M2 PT-IP Current Condition Start: 02/16/21 08:50 Freq: NEEDED Status: Active Protocol: Document 02/16/21 12:05 AW (Rec: 02/16/21 12:23 AW [id number]) Physical Therapy Current Condition Current Condition Evaluation Date 02/16/21 Treatment Diagnosis AMS, covid pna Onset Date 02/15/21 Precautions Other Precautions covid (+) M3 PT-IP Subjective Start: 02/16/21 08:50 Freq: NEEDED Status: Active Protocol: Document 02/16/21 12:05 AW (Rec: 02/16/21 12:23 AW [id number]) Subjective Physical Therapy Visit Type Type Initial Evaluation Visit Start Time 11:40 Visit Stop Time 12:05 Total Visit Minutes 25 Number of JAI ALAI PLAYER Visits 0 Physical Therapy Visit Comments Patient Comments Pt is willing to participate with PT Patient Goals Return home with family support. Therapy Pain Assessment Pain When Pain Assessed During Mobility Pain Present Pain Present Denied Pain M4 PT-IP Mobility and Gait Start: 02/16/21 08:50 Freq: NEEDED Status: Active Protocol: Document 02/16/21 12:05 AW (Rec: 02/16/21 12:31 AW [id number]) PT-Bed Mobility Assessment Supine to Sit Supine to Sit Minimal Assistance,1 Person Assistance Sit to Supine Sit to Supine Standby Assistance Scooting Scooting to Edge of Bed Independent PT-Transfer Assessment Sit to and From Stand Sit to and from Stand Standby Assistance Equipment Transfer Assistive Device None,Gait Belt Orthotic/Prosthetic Devices or Brace: No Transfers Transfer Destination Bed,Chair Transfer Technique Stand Step Pivot Transfer Ability Level of Assist Standby Assistance Comments Mobility Comments Pt was lying in bed as PT arrived. Supine BP 142/80 HR 76 SpO2 97% on room air. He agreed to mobilize, needing min assist to right his trunk from the bed. He remarked that his bed at home was easier to move on. He stood SBA and participated in balance assessment. He completed a 2- Minute Step Test while lightly contacting the bedside table for support. He scored 57 - no SOB and SpO2 was stable 97-98 % throughout test and at three minutes post-test. He ambulated around the room three times SBA and returned to bed SBA. Gait Assessment Gait Gait Assistance Required: Standby Assistance Distance (Feet) 60 Assistive Devices Assistive Device None,Gait Belt Orthotic/Prosthetic Devices or Brace: No Gait Deviations General Gait Pattern Decreased Stride Length, Lateral Trunk Lean,Wide Based Gait Factors Limiting Gait Function Factors Limiting Gait Function Decreased Activity Tolerance, Poor Balance Comments Gait Comments Pt ambulates with significant ipsilateral lean in right stance phase. No LOB was observed. Stair Climbing Assessment Comments Stair Climbing Comments Not assessed. PT-Balance Assessment Sitting Balance and Reactions Static Sitting Balance Ability Good Dynamic Sitting Balance Ability Good Standing Balance and Reactions Static Standing Balance Ability Good Dynamic Standing Balance Ability Good Balance Tests Romberg WNL Functional Assessments Other Functional Tests Performed 2-Minute Step Test - pt able to march in place (with knees elevating to height long-term between iliac crest and patella). Right knee passed the melquiades 57 times in two minutes. M5 PT-IP Objective Assessments Start: 02/16/21 08:50 Freq: NEEDED Status: Active Protocol: Document 02/16/21 12:05 AW (Rec: 02/16/21 12:33 AW [id number]) Orientation Orientation/Cognition Level of Alertness Alert Orientation Name,Day of Week,Place, Situation Safety Awareness Understands Safety Issues Memory Description No Deficits Noted Comments Pt is quiet and reserved but speech was definitely slightly slurred. Speech content was appropriate. Gross Range of Motion Upper Extremity ROM Assessment Within Functional Limits Lower Extremity ROM Assessment Within Functional Limits Strength Upper Extremity Strength Assessment Within Functional Limits Lower Extremity Strength Assessment Within Functional Limits Comments Strength Comments BLE grossly 5/5 without unilateral deficit. Coordination Assessment Gross Coordination Gross Coordination WNL Assessment Finger to Nose Test Normal Performance Foot Tapping Test Normal Performance Sensation Assessment Sensation Gross Sensation WNL Muscle Tone Muscle Tone WNL Yes M6 PT-IP Treatment Start: 02/16/21 08:50 Freq: NEEDED Status: Active Protocol: Document 02/16/21 12:05 AW (Rec: 02/16/21 12:33 AW [id number]) Physical Therapy Treatment Education Education Provided Safety Other Treatments Other Treatment Performed Educated pt on signs and symptoms of CVA as well as need for immediate treatment. Pt able to teach back. M7 PT-IP Assessment and Plan Start: 02/16/21 08:50 Freq: NEEDED Status: Active Protocol: Document 02/16/21 12:05 AW (Rec: 02/16/21 13:14 AW [id number]) PT Summary Assessment and Plan Potential Rehabilitation Potential Good Status of Condition at Evaluation Evolving Summary Impairments Gait,Activity Tolerance Assessment Summary Manfred is a 60 yo man seen for PT evaluation per stroke protocol. MRI report was unavailable at the time of this encounter. Pt reports independent baseline mobility. On evaluation, strength, sensation, and coordination were normal. Cranial nerves were grossly intact. Speech was slurred and delayed but pt was able to communicate with extra time. Pt was able to complete 2-Minute Step Test with a score of 57 which is ~ 60% of expected score when compared with age and gender- matched peers for community- dwelling adults (Sofia and Burke 1999). Pt had no increased labor of breathing. SpO2 was stable at 97-98% throughout testing and at least three minutes afterward. No acute or subacute PT needs were identified. Pt will be safe to discharge home with assist once medically cleared. He would benefit from [employer]ING [employer]GER [employer] evaluation. Frequency of Treatment Frequency Of Treatment Discharge Precautions Other Precautions covid (+) Recommendations To Nursing Amount of Assist Needed Standby Assistance Discharge Recommendations PT Discharge Recommendations Home with Assistance Other Discharge Recommendations [employer] consult Transportation Needs at Discharge Private Vehicle
--- NOTE | 2021-02-16 12:05 | PT.IIE ---
Medical History (Last Reviewed 02/15/21 @ 15:23 by Papito Rowe DO) Alcohol abuse CAD (coronary artery disease) Chronic GERD Mild peripheral edema Obesities, morbid Physical Therapy Inpatient Evaluation/Re-Eval M1 PT/OT-IP Prior Functional Status Start: 02/16/21 08:50 Freq: NEEDED Status: Active Protocol: Document 02/16/21 12:05 AW (Rec: 02/16/21 12:23 AW [id number]) Medical Review Prior Functional Status Medical History Reviewed Yes Communication WNL. Pt is typically an effective verbal communicator. Mobility and Gait Pt denies need for any assistive device, stating he is independent with all mobility at baseline. Activities of Daily Living and IADL's Independent. Pt drives. Social History Household Members family Living Arrangements House Number of Floors (Floors) Two Floors Number of Stairs To Enter/Railing? 7 FERMIN with wide bilateral rails Home Environment Standard Height Toilet,Tub/ Shower Home Equipment Grab Bars In Shower Additional Social History Comment Pt lives with his daughter, Shila, who works outside the home. He has other daughters who live nearby in [place]. 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 Therapy Pain Assessment Pain When Pain Assessed During Mobility Pain Present Pain Present Denied Pain M4 PT-IP Mobility and Gait Start: 02/16/21 08:50 Freq: NEEDED Status: Active Protocol: Document 02/16/21 12:05 AW (Rec: 02/16/21 12:31 AW [id number]) PT-Bed Mobility Assessment Supine to Sit Supine to Sit Minimal Assistance,1 Person Assistance Sit to Supine Sit to Supine Standby Assistance Scooting Scooting to Edge of Bed Independent PT-Transfer Assessment Sit to and From Stand Sit to and from Stand Standby Assistance Equipment Transfer Assistive Device None,Gait Belt Orthotic/Prosthetic Devices or Brace: No Transfers Transfer Destination Bed,Chair Transfer Technique Stand Step Pivot Transfer Ability Level of Assist Standby Assistance Comments Mobility Comments Pt was lying in bed as PT arrived. Supine BP 142/80 HR 76 SpO2 97% on room air. He agreed to mobilize, needing min assist to right his trunk from the bed. He remarked that his bed at home was easier to move on. He stood SBA and participated in balance assessment. He completed a 2- Minute Step Test while lightly contacting the bedside table for support. He scored 57 - no SOB and SpO2 was stable 97-98 % throughout test and at three minutes post-test. He ambulated around the room three times SBA and returned to bed SBA. Gait Assessment Gait Gait Assistance Required: Standby Assistance Distance (Feet) 60 Assistive Devices Assistive Device None,Gait Belt Orthotic/Prosthetic Devices or Brace: No Gait Deviations General Gait Pattern Decreased Stride Length, Lateral Trunk Lean,Wide Based Gait Factors Limiting Gait Function Factors Limiting Gait Function Decreased Activity Tolerance, Poor Balance Comments Gait Comments Pt ambulates with significant ipsilateral lean in right stance phase. No LOB was observed. Stair Climbing Assessment Comments Stair Climbing Comments Not assessed. PT-Balance Assessment Sitting Balance and Reactions Static Sitting Balance Ability Good Dynamic Sitting Balance Ability Good Standing Balance and Reactions Static Standing Balance Ability Good Dynamic Standing Balance Ability Good Balance Tests Romberg WNL Functional Assessments Other Functional Tests Performed 2-Minute Step Test - pt able to march in place (with knees elevating to height [facility] between iliac crest and patella). Right knee passed the melquiades 57 times in two minutes. M5 PT-IP Objective Assessments Start: 02/16/21 08:50 Freq: NEEDED Status: Active Protocol: Document 02/16/21 12:05 AW (Rec: 02/16/21 12:33 AW [id number]) Orientation Orientation/Cognition Level of Alertness Alert Orientation Name,Day of Week,Place, Situation Safety Awareness Understands Safety Issues Memory Description No Deficits Noted Comments Pt is quiet and reserved but speech was definitely slightly slurred. Speech content was appropriate. Gross Range of Motion Upper Extremity ROM Assessment Within Functional Limits Lower Extremity ROM Assessment Within Functional Limits Strength Upper Extremity Strength Assessment Within Functional Limits Lower Extremity Strength Assessment Within Functional Limits Comments Strength Comments BLE grossly 5/5 without unilateral deficit. Coordination Assessment Gross Coordination Gross Coordination WNL Assessment Finger to Nose Test Normal Performance Foot Tapping Test Normal Performance Sensation Assessment Sensation Gross Sensation WNL Muscle Tone Muscle Tone WNL Yes M6 PT-IP Treatment Start: 02/16/21 08:50 Freq: NEEDED Status: Active Protocol: Document 02/16/21 12:05 AW (Rec: 02/16/21 12:33 AW [id number]) Physical Therapy Treatment Education Education Provided Safety Other Treatments Other Treatment Performed Educated pt on signs and symptoms of CVA as well as need for immediate treatment. Pt able to teach back. M7 PT-IP Assessment and Plan Start: 02/16/21 08:50 Freq: NEEDED Status: Active Protocol: Document 02/16/21 12:05 AW (Rec: 02/16/21 13:14 AW [id number]) PT Summary Assessment and Plan Potential Rehabilitation Potential Good Status of Condition at Evaluation Evolving Summary Impairments Gait,Activity Tolerance Assessment Summary Manfred is a 60 yo man seen for PT evaluation per stroke protocol. MRI report was unavailable at the time of this encounter. Pt reports independent baseline mobility. On evaluation, strength, sensation, and coordination were normal. Cranial nerves were grossly intact. Speech was slurred and delayed but pt was able to communicate with extra time. Pt was able to complete 2-Minute Step Test with a score of 57 which is ~ 60% of expected score when compared with age and gender- matched peers for community- dwelling adults (Sofia and Burke 1999). Pt had no increased labor of breathing. SpO2 was stable at 97-98% throughout testing and at least three minutes afterward. No acute or subacute PT needs were identified. Pt will be safe to discharge home with assist once medically cleared. He would benefit from BLOW PIT OPERATOR evaluation. Frequency of Treatment Frequency Of Treatment Discharge Recommendations To Nursing Amount of Assist Needed Standby Assistance Discharge Recommendations PT Discharge Recommendations Home with Assistance Other Discharge Recommendations BLOW PIT OPERATOR consult Transportation Needs at Discharge Private Vehicle
--- NOTE | 2021-02-16 13:00 | DI.US.S_ITS ---
PROCEDURE: US CAROTID DOPPLER BI INDICATIONS: STENOSIS TECHNIQUE: Color and pulse Doppler interrogation was performed of both carotid systems, with image documentation and velocity measurements. COMPARISON: [facility], MR, MR STROKE, 02/16/2021, 10:24. FINDINGS: Stenosis calculations are based on SRU (Society of Radiologists in Ultrasound) criteria. Right side: Brachial blood pressure: 133/77 mm Hg. Common carotid artery peak systolic velocity: 45 cm/sec. Internal carotid artery peak systolic velocity: 43 cm/sec. Internal carotid artery end diastolic velocity: 15 cm/sec. External carotid artery peak systolic velocity: 61 cm/sec. ICA/CCA peak systolic ratio: 1.0. Lane scale imaging description: Moderate calcified plaque. Percent internal carotid artery stenosis: Less than 50% stenosis. Vertebral artery: Not identified. Left side: Brachial blood pressure: 137/88 mm Hg. Common carotid artery peak systolic velocity: 71 cm/sec. Internal carotid artery peak systolic velocity: 50 cm/sec. Internal carotid artery end diastolic velocity: 17 cm/sec. External carotid artery peak systolic velocity: 106 cm/sec. ICA/CCA peak systolic ratio: 0.8. Lane scale imaging description: Moderate calcified plaque. Percent internal carotid artery stenosis: Less than 50% stenosis. Vertebral artery: Flow direction is antegrade. IMPRESSION: 1. Right ICA: Less than 50% stenosis. Moderate calcified atherosclerotic plaque. 2. Left ICA: Less than 50% stenosis. Moderate calcified atherosclerotic plaque. 3. Antegrade flow in the left vertebral artery. The right vertebral artery is not identified in the neck. Dictated by: Jorge Tavarez M.D. on 02/16/2021 at 16:12 Approved by: Jorge Tavarez M.D. on 02/16/2021 at 16:17
--- NOTE | 2021-02-16 13:04 | PM.PN.1 ---
Subjective Subjective Date Patient Seen: 02/16/21 Time Patient Seen: 08:00 Interval history: He says he feels fine today. No confusion. No weakness. He still has some difficulty with expressing himself with words. Exam Vital Signs (past 8 hours): - 02/16/21 08:25 02/16/21 10:00 02/16/21 12:03 Temperature 97.8 F 97.8 F Pulse Rate 78 79 Respiratory Rate 16 17 Blood Pressure 143/91 H 141/80 H Pulse Oximetry 96 96 97 Oxygen Delivery Method Room Air,Nasal Cannula Oxygen Flow Rate 0 Narrative Exam Narrative: GEN: no acute distress HEENT: moist mucous membranes NECK: no jvd, trachea midline CV: regular rate and rhythm PULM: coarse breath sounds ABD: soft, nontender, suprapubic distended, normal bowel sounds EXT: warm and well perfused with no edema NEURO: CN 2-12 intact, 5/5 strength upper and lower extremities, normal rapid alternating movements, normal heel to damon, normal reflexes, normal babinski, right facial droop, slurred speech, expressive aphasia Objective Labs Result Diagrams: 02/16/21 04:40 02/16/21 04:40 Labs: Laboratory Results - last 24 hr 02/15/21 02/15/21 02/15/21 14:51 14:51 14:51 WBC 12.3 H RBC 3.68 L Hgb 12.3 L Hct 37.0 L MCV 100.4 H MCH 33.5 MCHC 33.3 RDW 13.1 Plt Count 469 H Neut % (Auto) 79.4 H Lymph % (Auto) 10.7 L [place] % (Auto) 8.3 Eos % (Auto) 1.4 L Baso % (Auto) 0.2 Neut # (Auto) 9800 H Lymph # (Auto) 1300 [place] # (Auto) 1000 H Eos # (Auto) 200 Baso # (Auto) 0 Sodium 134 L Potassium 5.1 Chloride 100 Carbon Dioxide 24 BUN 21 H Creatinine 1.50 H Estimated GFR 47.4 L BUN/Creatinine Ratio 14.0 Glucose 153 H Hemoglobin A1c Calcium 9.6 Phosphorus Magnesium Total Bilirubin 0.9 Conjugated Bilirubin Unconjugated Bilirubin AST 81 H ALT 100 H Alkaline Phosphatase 71 Ammonia Total Creatine Kinase 305 H CK-MB (CK-2) 2.18 CK-MB (CK-2) Rel Index 0.7 L Troponin I < 0.012 Total Protein 8.5 H Albumin 4.3 Globulin 4.2 H Albumin/Globulin Ratio 1.0 Lipase 208 Procalcitonin Urine Color Urine Appearance Urine pH Ur Specific [place] Urine Protein Urine Glucose (UA) Urine Ketones Urine Occult Blood Urine Nitrate Urine Bilirubin Urine Urobilinogen Ur Leukocyte Esterase Urine RBC Urine WBC Ur Squamous Epith Cells Urine Bacteria Hyaline Casts Ur Culture Indicated? Micro UA Comment Ur Random Sodium Urine Creatinine U Opiates 300ng/mL cut Ur Oxycodone Screen Urine Methadone Screen Ur Barbiturates Screen U Tricyclic Antidepress Ur Phencyclidine Scrn Ur Amphetamines Screen U Methamphetamines Scrn Ur MDMA Scrn (Ecstasy) U Benzodiazepines Scrn Urine Cocaine Screen U Marijuana (THC) Screen Ethyl Alcohol < 10 Chlamy pneumoniae PCR Adenovirus (PCR) B. pertussis DNA (PCR) B.parapertussis DNA PCR Coronavirus OC43 (PCR) Coronavirus HKU1 (PCR) Coronavirus 229E (PCR) SARS-CoV-2 (PCR) Coronavirus NL63 (PCR) Human Metapneumovir PCR Influenza Type A (PCR) Influenza Type B (PCR) M. pneumoniae (PCR) Parainfluenza 1 (PCR) Parainfluenza 2 (PCR) Parainfluenza 3 (PCR) Parainfluenza 4 (PCR) RSV (PCR) Entero/Rhino (PCR) 02/15/21 02/15/21 02/15/21 14:51 14:51 14:51 WBC RBC Hgb Hct MCV MCH MCHC RDW Plt Count Neut % (Auto) Lymph % (Auto) [place] % (Auto) Eos % (Auto) Baso % (Auto) Neut # (Auto) Lymph # (Auto) [place] # (Auto) Eos # (Auto) Baso # (Auto) Sodium Potassium Chloride Carbon Dioxide BUN Creatinine Estimated GFR BUN/Creatinine Ratio Glucose Hemoglobin A1c 6.6 H Calcium Phosphorus Magnesium Total Bilirubin Conjugated Bilirubin Unconjugated Bilirubin AST ALT Alkaline Phosphatase Ammonia Total Creatine Kinase CK-MB (CK-2) CK-MB (CK-2) Rel Index Troponin I Total Protein Albumin Globulin Albumin/Globulin Ratio Lipase Procalcitonin 0.05 Urine Color Urine Appearance Urine pH Ur Specific [place] Urine Protein Urine Glucose (UA) Urine Ketones Urine Occult Blood Urine Nitrate Urine Bilirubin Urine Urobilinogen Ur Leukocyte Esterase Urine RBC Urine WBC Ur Squamous Epith Cells Urine Bacteria Hyaline Casts Ur Culture Indicated? Micro UA Comment Ur Random Sodium Urine Creatinine U Opiates 300ng/mL cut Ur Oxycodone Screen Urine Methadone Screen Ur Barbiturates Screen U Tricyclic Antidepress Ur Phencyclidine Scrn Ur Amphetamines Screen U Methamphetamines Scrn Ur MDMA Scrn (Ecstasy) U Benzodiazepines Scrn Urine Cocaine Screen U Marijuana (THC) Screen Ethyl Alcohol Chlamy pneumoniae PCR Adenovirus (PCR) B. pertussis DNA (PCR) B.parapertussis DNA PCR Coronavirus OC43 (PCR) Coronavirus HKU1 (PCR) Coronavirus 229E (PCR) SARS-CoV-2 (PCR) Positive H Coronavirus NL63 (PCR) Human Metapneumovir PCR Influenza Type A (PCR) Influenza Type B (PCR) M. pneumoniae (PCR) Parainfluenza 1 (PCR) Parainfluenza 2 (PCR) Parainfluenza 3 (PCR) Parainfluenza 4 (PCR) RSV (PCR) Entero/Rhino (PCR) 02/15/21 02/15/21 02/15/21 18:30 19:30 19:30 WBC RBC Hgb Hct MCV MCH MCHC RDW Plt Count Neut % (Auto) Lymph % (Auto) [place] % (Auto) Eos % (Auto) Baso % (Auto) Neut # (Auto) Lymph # (Auto) [place] # (Auto) Eos # (Auto) Baso # (Auto) Sodium Potassium Chloride Carbon Dioxide BUN Creatinine Estimated GFR BUN/Creatinine Ratio Glucose Hemoglobin A1c Calcium Phosphorus Magnesium Total Bilirubin Conjugated Bilirubin Unconjugated Bilirubin AST ALT Alkaline Phosphatase Ammonia Total Creatine Kinase CK-MB (CK-2) CK-MB (CK-2) Rel Index Troponin I Total Protein Albumin Globulin Albumin/Globulin Ratio Lipase Procalcitonin Urine Color Yellow Urine Appearance Clear Urine pH 6.0 Ur Specific [place] <=1.005 Urine Protein Negative Urine Glucose (UA) Negative Urine Ketones Negative Urine Occult Blood Trace-intact Urine Nitrate Negative Urine Bilirubin Negative Urine Urobilinogen 0.2 Ur Leukocyte Esterase 2+ H Urine RBC 0-1/hpf Urine WBC 5-10/hpf H Ur Squamous Epith Cells 1-5 /hpf Urine Bacteria None seen Hyaline Casts 0-1/lpf Ur Culture Indicated? Specimen cultured Micro UA Comment * Ur Random Sodium 22 L Urine Creatinine 141.1 U Opiates 300ng/mL cut Negative Ur Oxycodone Screen Negative Urine Methadone Screen Negative Ur Barbiturates Screen Negative U Tricyclic Antidepress Negative Ur Phencyclidine Scrn Negative Ur Amphetamines Screen Negative U Methamphetamines Scrn Negative Ur MDMA Scrn (Ecstasy) Negative U Benzodiazepines Scrn Negative Urine Cocaine Screen Negative U Marijuana (THC) Screen Negative Ethyl Alcohol Chlamy pneumoniae PCR Adenovirus (PCR) B. pertussis DNA (PCR) B.parapertussis DNA PCR Coronavirus OC43 (PCR) Coronavirus HKU1 (PCR) Coronavirus 229E (PCR) SARS-CoV-2 (PCR) Coronavirus NL63 (PCR) Human Metapneumovir PCR Influenza Type A (PCR) Influenza Type B (PCR) M. pneumoniae (PCR) Parainfluenza 1 (PCR) Parainfluenza 2 (PCR) Parainfluenza 3 (PCR) Parainfluenza 4 (PCR) RSV (PCR) Entero/Rhino (PCR) 02/15/21 02/15/21 02/15/21 22:41 22:55 Unknown WBC RBC Hgb Hct MCV MCH MCHC RDW Plt Count Neut % (Auto) Lymph % (Auto) [place] % (Auto) Eos % (Auto) Baso % (Auto) Neut # (Auto) Lymph # (Auto) [place] # (Auto) Eos # (Auto) Baso # (Auto) Sodium Potassium Chloride Carbon Dioxide BUN Creatinine Estimated GFR BUN/Creatinine Ratio Glucose Hemoglobin A1c Calcium Phosphorus Magnesium Total Bilirubin Conjugated Bilirubin Unconjugated Bilirubin AST ALT Alkaline Phosphatase Ammonia < 9 L Total Creatine Kinase CK-MB (CK-2) CK-MB (CK-2) Rel Index Troponin I Total Protein Albumin Globulin Albumin/Globulin Ratio Lipase Procalcitonin Urine Color Urine Appearance Urine pH Ur Specific [place] Urine Protein Urine Glucose (UA) Urine Ketones Urine Occult Blood Urine Nitrate Urine Bilirubin Urine Urobilinogen Ur Leukocyte Esterase Urine RBC Urine WBC Ur Squamous Epith Cells Urine Bacteria Hyaline Casts Ur Culture Indicated? Micro UA Comment Ur Random Sodium Urine Creatinine U Opiates 300ng/mL cut Ur Oxycodone Screen Urine Methadone Screen Ur Barbiturates Screen U Tricyclic Antidepress Ur Phencyclidine Scrn Ur Amphetamines Screen U Methamphetamines Scrn Ur MDMA Scrn (Ecstasy) U Benzodiazepines Scrn Urine Cocaine Screen U Marijuana (THC) Screen Ethyl Alcohol Chlamy pneumoniae PCR Not detected Adenovirus (PCR) Not detected B. pertussis DNA (PCR) Not detected B.parapertussis DNA PCR TNP Coronavirus OC43 (PCR) Not detected Coronavirus HKU1 (PCR) Not detected Coronavirus 229E (PCR) Not detected SARS-CoV-2 (PCR) Not detected Negative Coronavirus NL63 (PCR) Not detected Human Metapneumovir PCR Not detected Influenza Type A (PCR) Not detected Influenza Type B (PCR) Not detected M. pneumoniae (PCR) Not detected Parainfluenza 1 (PCR) Not detected Parainfluenza 2 (PCR) Not detected Parainfluenza 3 (PCR) Not detected Parainfluenza 4 (PCR) Not detected RSV (PCR) Not detected Entero/Rhino (PCR) Not detected 02/16/21 02/16/21 02/16/21 02:00 02:00 04:40 WBC 10.2 RBC 3.39 L Hgb 11.4 L Hct 34.2 L MCV 100.9 H MCH 33.8 MCHC 33.4 RDW 13.1 Plt Count 420 H Neut % (Auto) 66.6 Lymph % (Auto) 19.9 L [place] % (Auto) 9.2 Eos % (Auto) 3.5 Baso % (Auto) 0.8 Neut # (Auto) 6800 Lymph # (Auto) 2000 [place] # (Auto) 900 Eos # (Auto) 400 Baso # (Auto) 100 Sodium Potassium Chloride Carbon Dioxide BUN Creatinine Estimated GFR BUN/Creatinine Ratio Glucose Hemoglobin A1c Calcium Phosphorus Magnesium Total Bilirubin Conjugated Bilirubin Unconjugated Bilirubin AST ALT Alkaline Phosphatase Ammonia Total Creatine Kinase CK-MB (CK-2) CK-MB (CK-2) Rel Index Troponin I Total Protein Albumin Globulin Albumin/Globulin Ratio Lipase Procalcitonin Urine Color Urine Appearance Urine pH Ur Specific [place] Urine Protein Urine Glucose (UA) Urine Ketones Urine Occult Blood Urine Nitrate Urine Bilirubin Urine Urobilinogen Ur Leukocyte Esterase Urine RBC Urine WBC Ur Squamous Epith Cells Urine Bacteria Hyaline Casts Ur Culture Indicated? Micro UA Comment Ur Random Sodium Urine Creatinine U Opiates 300ng/mL cut Ur Oxycodone Screen Urine Methadone Screen Ur Barbiturates Screen U Tricyclic Antidepress Ur Phencyclidine Scrn Ur Amphetamines Screen U Methamphetamines Scrn Ur MDMA Scrn (Ecstasy) U Benzodiazepines Scrn Urine Cocaine Screen U Marijuana (THC) Screen Ethyl Alcohol Chlamy pneumoniae PCR Not detected Adenovirus (PCR) Not detected B. pertussis DNA (PCR) Not detected B.parapertussis DNA PCR Not detected Coronavirus OC43 (PCR) Not detected Coronavirus HKU1 (PCR) Not detected Coronavirus 229E (PCR) Not detected SARS-CoV-2 (PCR) Positive H Not Reportable Coronavirus NL63 (PCR) Not detected Human Metapneumovir PCR Not detected Influenza Type A (PCR) Not detected Influenza Type B (PCR) Not detected M. pneumoniae (PCR) Not detected Parainfluenza 1 (PCR) Not detected Parainfluenza 2 (PCR) Not detected Parainfluenza 3 (PCR) Not detected Parainfluenza 4 (PCR) Not detected RSV (PCR) Not detected Entero/Rhino (PCR) Not detected 02/16/21 02/16/21 04:40 09:40 WBC RBC Hgb Hct MCV MCH MCHC RDW Plt Count Neut % (Auto) Lymph % (Auto) [place] % (Auto) Eos % (Auto) Baso % (Auto) Neut # (Auto) Lymph # (Auto) [place] # (Auto) Eos # (Auto) Baso # (Auto) Sodium 136 L Potassium 5.0 Chloride 102 Carbon Dioxide 27 BUN 22 H Creatinine 1.36 H Estimated GFR 53.1 L BUN/Creatinine Ratio 16.2 Glucose 100 Hemoglobin A1c Calcium 8.7 Phosphorus 4.1 H Magnesium 2.0 Total Bilirubin 0.6 Conjugated Bilirubin 0.0 Unconjugated Bilirubin 0.4 AST 56 ALT 78 H Alkaline Phosphatase 65 Ammonia Total Creatine Kinase CK-MB (CK-2) CK-MB (CK-2) Rel Index Troponin I Total Protein 7.5 Albumin 3.7 Globulin 3.8 Albumin/Globulin Ratio 1.0 Lipase Procalcitonin Urine Color Urine Appearance Urine pH Ur Specific [place] Urine Protein Urine Glucose (UA) Urine Ketones Urine Occult Blood Urine Nitrate Urine Bilirubin Urine Urobilinogen Ur Leukocyte Esterase Urine RBC Urine WBC Ur Squamous Epith Cells Urine Bacteria Hyaline Casts Ur Culture Indicated? Micro UA Comment Ur Random Sodium Urine Creatinine U Opiates 300ng/mL cut Ur Oxycodone Screen Urine Methadone Screen Ur Barbiturates Screen U Tricyclic Antidepress Ur Phencyclidine Scrn Ur Amphetamines Screen U Methamphetamines Scrn Ur MDMA Scrn (Ecstasy) U Benzodiazepines Scrn Urine Cocaine Screen U Marijuana (THC) Screen Ethyl Alcohol Chlamy pneumoniae PCR Adenovirus (PCR) B. pertussis DNA (PCR) B.parapertussis DNA PCR Coronavirus OC43 (PCR) Coronavirus HKU1 (PCR) Coronavirus 229E (PCR) SARS-CoV-2 (PCR) Coronavirus NL63 (PCR) Human Metapneumovir PCR Influenza Type A (PCR) Influenza Type B (PCR) M. pneumoniae (PCR) Parainfluenza 1 (PCR) Parainfluenza 2 (PCR) Parainfluenza 3 (PCR) Parainfluenza 4 (PCR) RSV (PCR) Entero/Rhino (PCR) PFSH Medical History Alcohol abuse CAD (coronary artery disease) Chronic GERD Mild peripheral edema Obesities, morbid Surgical History History of coronary artery stent placement Social History household members: family Smoking Status: Never smoker Assessment & Plan Assessment & Plan narrative: Mr. Argueta is a 60M with PMH of CAD s/p stents, alcohol abuse, recent COVID infection who presents with altered mental status. 1. Acute CVA -evidence of right facial droop, slurred speech, aphasia -working up for TIA vs CVA -received aspirin in ED, continue aspirin, and plavix, continue high dose statin -CT head negative for acute process -MR head shows multiple small lesions concerning for embolic event, MR shows incomplete stenosis of ICA, possibly complete occlusion of V4 of right vertebral artery -discussed with radiology who recommend carotid ultrasound -consider CT angio head/neck to further evaluate intracranial stenosis, has occlusion of v4 segment on right -NIH qshift -order for a1c, lipids -order PT/OT/speech 2. Acute encephalopathy -probably from stroke vs UTI, less likely secondary to COVID, ammonia negative -ordered for infectious workup UA, blood cultures, chest xray, sputum culture, respiratory panel -CT abdomen showed distended bladder, but no other acute process -chest xray showed bilateral infiltrates -respiratory panel negative -blood cultures pending -UA positive, possibly has UTI, started ceftriaxone, urine culture pending 3. COVID pneumonia -has significant infiltrates on xray -no respiratory symptoms -hold on starting remdesivir, dexamethasone as patient has normal oxygen 4. MARISOL -etiology unclear, possibly from medications -did have distended bladder, possibly has component of bladder obstruction -ordered for bladder scan and straight cath -ordered IVF and monitor creatinine closely -hold losartan, torsemide -creatinine improved with fluids, urinating well -continue to monitor daily 5. CAD s/p stents -continue aspirin/statin as above -continue metoprolol, imdur 6. Hypertension -hold losartan -consider resuming amlodipine 7. Anemia -mild continue to trend -no need for transfusion 8. Transaminitis -mild, possibly secondary to alcohol abuse -continue to trend 9. Alcohol abuse -patient states has not had a drink in 2 weeks -EtOH level negative -outside window of withdrawal 10. Obesity -BMI 36.2 -encouraged lifestyle modifications 11. BPH -continue finasteride DVT ppx: heparin sc DIET: heart healthy CODE: Full Proxy: Юлия Argueta, Daughter Time Spent With Patient Critical Care time: I spent a total of [] minutes of critical care time on this patient's care today; this time is exclusive of procedural time. Quality VTE Deep Vein Thrombosis/Pulmonary Embolism Present on Admission: No
--- NOTE | 2021-02-16 15:13 | PC.NURSE ---
Changes in LOC: Pt scores a 3 on the NIH, off for facial flattening and difficulty with speach. Appears to have at least some expressive aphasia. When asked who the President was he was trying to say Biden but it took him some time to speak the word. Had diff with the sentence near the table in the dining room and They heard him speak on the radio last night. 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 ST not here today and will be seen by them tomorrow. No issues seen with swallow, tolerates diet w/out problems and was able to swallow his medication whole with water. Was seen by PT and he had no difficulties. See their note. made aware of NIH score and pt's diff swallowing.
[2021-02-16] MEDS: ATORVASTATIN 20 MG TABLET 80 MG PO (20:51)
[2021-02-16] MEDS: SODIUM CHLORIDE 0.9% FLUSH 10 ML IV (20:52)
--- NOTE | 2021-02-17 01:27 | PC.NURSE ---
Patient is alert and oriented. Slight slurring of some words noted so given an NIH score of 1. Breath sounds diminished throughout with RA sat of 95%. HRR w/telemetry reading of SR w/1st degree AVB. Denies nausea. BT present and abdomen is soft. Voiding per urinal; denies dysuria, frequency or urgency. Is able to turn himself in bed. Gait not assessed at this time but per PT note requires SBA when out of bed. Denies pain. Refusing SCD's so reminded to ankle wave when awake. Fall risk score is moderate and bed alarm is activated. On COVID isolation but having no current symptoms.
[2021-02-17 03:54] VITALS: BP 128/76; PULSE 75; RESP 18; TEMP 36.7; O2SAT 96
[2021-02-17 03:58] VITALS: O2SAT 99
[2021-02-17] MEDS: SODIUM CHLORIDE 0.9% 1,000 ML 125 ML IV (04:40)
[2021-02-17 07:18] LABS: Acinetobacter baumannii Not Detected (Not Detect); Candida albicans Not Detected (Not Detect); Candida glabrata Not Detected (Not Detect); Candida krusei Not Detected (Not Detect); Candida parapsilosis Not Detected (Not Detect); Candida tropicalis Not Detected (Not Detect); E. coli Not Detected (Not Detect); Enterobacter cloacae complex Not Detected (Not Detect); Enterobacteriaceae species Not Detected (Not Detect); Enterococcus species Not Detected (Not Detect); Haemophilus influenzae Not Detected (Not Detect); KPC (carbapenem-resist gene) Not Detected (Not Detect); Listeria monocytogenes Not Detected (Not Detect); Methicillin-resistant gene Not Detected (Not Detect); Neisseria meningitidis Not Detected (Not Detect); Proteus species Not Detected (Not Detect); Pseudomonas aeruginosa Not Detected (Not Detect); Serratia marcescens Not Detected (Not Detect); Staphylococcus species Not Detected (Not Detect); Streptococcus agalactiae (Gr B Not Detected (Not Detect); Streptococcus pneumonia Not Detected (Not Detect); Streptococcus pyogenes (Gr A) Not Detected (Not Detect); Streptococcus species Not Detected (Not Detect); Vancomycin-rest genes A/B Not Detected (Not Detect)
[2021-02-17 07:30] VITALS: BP 130/74; PULSE 63; RESP 16; TEMP 36.7; O2SAT 97
[2021-02-17] MEDS: ASPIRIN EC 81 MG TABLET PO (08:16)
[2021-02-17] MEDS: CLOPIDOGREL 75 MG TABLET PO (08:16)
[2021-02-17] MEDS: FINASTERIDE 5 MG TABLET PO (08:16)
[2021-02-17] MEDS: AMLODIPINE 5 MG TABLET PO (08:16)
[2021-02-17 08:17] VITALS: BP 130/74; PULSE 63
[2021-02-17] MEDS: ISOSORBIDE MONONITRATE ER 30 MG TABLET 60 MG PO (08:17)
[2021-02-17] MEDS: METOPROLOL ER 50 MG TABLET 100 MG PO (08:17)
[2021-02-17] MEDS: HEPARIN 5,000 UNIT/ML VIAL 5000 UNIT SUBCUT (08:17)
[2021-02-17] MEDS: PANTOPRAZOLE DR 40 MG TABLET PO (08:17)
[2021-02-17] MEDS: SODIUM CHLORIDE 0.9% FLUSH 10 ML IV (08:17)
[2021-02-17 08:22] VITALS: O2SAT 93
--- NOTE | 2021-02-17 08:30 | OT.IP.EVAL ---
Current Diagnoses COVID-19 (02/15/21) Past Medical History (Last Reviewed 02/15/21 @ 15:23 by Papito Rowe DO) Alcohol abuse CAD (coronary artery disease) Chronic GERD History of coronary artery stent placement Mild peripheral edema Obesities, morbid Surgical History (Last Reviewed 06/05/20 @ 12:26 by Josi Gibson DO) History of coronary artery stent placement Occupational Therapy Inpatient Evaluation/Re-Eval M1 PT/OT-IP Prior Functional Status Start: 02/16/21 08:50 Freq: NEEDED Status: Active Protocol: Document 02/17/21 09:28 [facility] (Rec: 02/17/21 10:28 [facility] [id number]) Medical Review Prior Functional Status Medical History Reviewed Yes Communication WNL. Pt is typically an effective verbal communicator. Mobility and Gait Pt denies need for any assistive device, stating he is independent with all mobility at baseline. Activities of Daily Living and IADL's Independent. Pt drives. Social History Household Members family Living Arrangements House Number of Floors (Floors) Two Floors Number of Stairs To Enter/Railing? 7 FERMIN with wide bilateral rails Home Environment Standard Height Toilet,Tub/ Shower Home Equipment Grab Bars In Shower Additional Social History Comment Pt lives with his daughter, Shila, who works outside the home. He has other daughters who live nearby in [place]. M2 OT-IP Current Condition Start: 02/17/21 09:28 Freq: Status: Active Protocol: Document 02/17/21 09:28 [facility] (Rec: 02/17/21 10:28 [facility] [id number]) Occupational Therapy Current Condition Current Condition Evaluation Date 02/17/21 Treatment Diagnosis CVA Diagnosis Onset Date 02/16/21 M3 OT- IP Subjective and Pain Start: 02/17/21 09:28 Freq: Status: Active Protocol: Document 02/17/21 09:28 [facility] (Rec: 02/17/21 09:43 [facility] [id number]) OT- Subjective Occupational Therapy Visit Type Type Initial Evaluation Visit Start Time 08:30 Visit Stop Time 09:18 Total Visit Minutes 48 M4 OT- IP ADL's Start: 02/17/21 09:28 Freq: Status: Active Protocol: Document 02/17/21 09:28 [facility] (Rec: 02/17/21 10:28 [facility] [id number]) OT [id number] General Evaluation Self-Feeding Ability Independent OT ADL-Grooming General Evaluation Grooming Ability Independent OT ADL-Oral Care Comments Oral Care Comments NOt performed. OT ADL-Dressing General Eval Lower Body Dressing Ability Standby Assistance Comments OT Dressing Comments Pt struggles to heidy/doff his socks, but able to do with increased time. OT ADL-Toileting Comments OT Toileting Comments Pt did not have to use the toilet. OT ADL-Bathing Comments OT Bathing Comments NOt performed. Pt would benefit form a shower chair at home. M5 OT- IP IADL's Start: 02/17/21:28 Freq: Status: Active Protocol: Document 02/17/21:28 [facility] (Rec: 02/17/21 10:28 [facility] [id number]) OT-Instrumental Activities of Daily Living Home Safety Awareness Awareness of Need for Assistance at Home Good Awareness Ability to Problem Solve Emergency Able to Problem Solve Situations Medication Management Medication Management Comments Pt be good to have his daughter provide supervision due to his decreased STM. Money Management Money Management Comments Pt would benefit from assist as during SLUMS having difficulty to calculate numbers. Meal Preparation Meal Preparation Comments Pt would benefit from assist due to decreased dynamic balance at this time. Certified Pedorthotist Certified Pedorthotist Comments Pt would benefit from assist due to decreased dynamic balance at this time. Driving Driving Concerns Identified Regarding Safety M6 OT- IP Functional Cognition Start: 02/17/21 09:28 Freq: Status: Active Protocol: Document 02/17/21:28 [facility] (Rec: 02/17/21 10:28 [facility] [id number]) Cognitive Factors Limiting Selfcare Function Cognitive Ability Level of Alertness Alert Patient Orientation Name,Age,Birthday,Month,Date, Year,Day of Week,Place, Situation Attention Span Ability Capable of Focused Attention, Capable of Sustained Attention Ability to Follow Commands Able to Follow One Step Commands Memory Description Short Term Impaired Problem Solving Ability Unable to Identify Errors, Needs Assist to Identify Solutions Executive Function Ability Unable to Organize Plans, Unable to Remember Details Cognitive Tests SLUMS Pt scored 21/30 which implies mild neurocognitive deficits. Pt not able to subtract 100- 23, able to name 10 animals in one minute, not able to recall any of the 5 objects after time passed, not able to states 4 digit number backwards. Pt does admit to having to write things down and can remember things if they are important to him. Cognitive Comments Cognitive Assessment Comments Pt scored 251 seconds on [place] making Part B and needing MOD vc to complete the assessment which implies severe impairments for visual attention, task switching, speed of processing, mental flexibility, and executive functioning. Per [employer] a score of greater than 180 seconds on [place] Making Part B someone is more likely to get into a car accident. Suggested pt not drive at this time. OT- Vision and Hearing OT- Hearing Assessment OT- Hearing Assessment WFL OT- Vision Assessment Visual Attentiveness WFL Occular Pursuits WFL Visual Elliott WFL Vision Assessment Comments Pt has glasses but not here in the hospital. M7 OT- IP Mobility and Balance Start: 02/17/21 09:28 Freq: Status: Active Protocol: Document 02/17/21 09:28 [facility] (Rec: 02/17/21 10:28 [facility] [id number]) OT- Bed Mobility Assessment Rolling Type of Rolling Roll to Left Supine to Sit Supine to Sit Assist Standby Assistance Scooting Scooting to Edge of Bed Standby Assistance OT-Transfer Assessment Sit to and From Stand Sit to and from Stand Standby Assistance Transfers Transfer Ability Standby Assistance Technique Transfer Destination Chair Devices Transfer Assistive Devices None Comments Mobility Comments SBA in the room. OT- Gait Assessment Comments Gait Ability Comments SBA in the room. OT- Balance Assessment Sitting Balance and Reactions Static Sitting Balance Ability Good Dynamic Sitting Balance Ability Good Standing Balance and Reactions Static Standing Balance Ability Good Dynamic Standing Balance Ability Fair M8 OT- IP Objective Assessments Start: 02/17/21 09:28 Freq: Status: Active Protocol: Document 02/17/21 09:28 [facility] (Rec: 02/17/21 10:28 [facility] [id number]) OT Gross Range of Motion Upper Extremity Range of Motion Assessment Right Impaired OT Strength Upper Extremity Strength Assessment Within Functional Limits Comments Strength Comments RUE decreased AROM due to falling of a 20ft ladder years ago. OT- Coordination Assessment Comments Coordination Comments Intact for eating needs. OT-Muscle Tone Assessment Muscle Tone WNL Yes OT Sensation Assessment Comments Summary Comments Intact for light touch. Pt decreased propriception for right hand and wrist. M9 OT- IP Assessment and Plan Start: 02/17/21 09:28 Freq: Status: Active Protocol: Document 02/17/21 09:28 [facility] (Rec: 02/17/21 10:28 [facility] [id number]) OT Summary Assessment and Plan Potential Rehabilitation Potential Good Analytic Complexity at Evaluation Moderate Summary OT Impairments Balance,Sensation,Functional Cognition,Functional Mobility, Dressing,Bathing,Shower Transfers,Activity Tolerance Progress Towards Goals Slow Progress due to Activity Tolerance,Slow Progress due to Cognition Assessment Summary Pt MOD complexity and main deficits are steps, having increased STM issues, and decreased dynamic balance. Pt would benefit from HH versus outpt PT for balance and cognitive needs. Pt wanting to go home when medically stable . Goals Grooming Goal Independent Dressing Goal Independent Toileting Goal Independent Bathing Goal Independent Toilet Transfer Goal Independent Shower Transfer Goal Independent Days to Meet Goals 5 Frequency of Treatment Frequency Of Treatment Twice a Day Treatment Plan OT Treatment Plan ADL Training,Functional Cognition Training,Functional Mobility,Patient/Family Education,Discharge Planning Other Treatment Recommendations and Next Training of LB dressing Treatment Focus equipment. Discharge Recommendations OT Discharge Recommendations Home with Assistance,Home Health,Outpatient PT Home Equipment Needs shower chair Transportation Needs at Discharge Private Vehicle
[2021-02-17] MEDS: cefTRIAXone 1,000 MG in SODIUM CHLORIDE 0.9% 100 ML 200 ML IV (09:25)
--- NOTE | 2021-02-17 11:30 | ST.IPIE ---
Visit Care Team Role Provider Type Ronny Wagner MD Primary Care Provider Non-Staff Specialty: Family Practice Address: [address] [place] [address], [id number] Email: Papito Rowe DO Emergency Provider Physician Referring Provider Specialty: Emergency Medicine Address: [address] [place] [address], [address] Email: [email or web address] Mari MD Admit Provider Physician Attending Provider Specialty: Hospitalist Address: [address] [place] [address], [address] Fax: Email: [email or web address] Diagnoses COVID-19 (02/15/21) Past Medical History (Last Reviewed 02/15/21 @ 15:23 by Papito Rowe DO) Alcohol abuse (Medical) CAD (coronary artery disease) (Medical) Chronic GERD (Medical) History of coronary artery stent placement (Medical) Mild peripheral edema (Medical) Obesities, morbid (Medical) ST IP Initial Evaluation Report DOCUMENT REVIEW SPECIALIST Adult Cognitive Linguistic Eval Start: 02/17/21 11:35 Freq: Status: Active Protocol: Document 02/17/21 11:35 STEVEN (Rec: 02/17/21 11:49 STEVEN [id number]) Adult Cognitive Linguistic Evaluation Session Time Visit Start Time 09:10 Visit Stop Time 09:30 Total Visit Minutes [address] Keny Mari Reason for Referral Stroke Protocol Setting Assessment Location Acute Care Visit Type Note Type Initial evaluation Patient Information Identification Type Name,ID Card Medical History Per H&P: Mr. Argueta is a 60M with PMH of CAD s/p stents, alcohol abuse, recent COVID infection who presents with altered mental status. Per pt and H&P reports, original stroke-like symptoms included disordered and slurred speech. Pt stated, I couldn't get my thoughts together. Pt has had inconsistent COVID- 19 testing results while in hospital, per Nsg report. CAPR was used by this DOCUMENT REVIEW SPECIALIST as COVID -19 precaution. Language(s) Spoken in the Home Turkish Hearing Hearing Level Normal Vision Vision Status Not Impaired Previous Therapy Previous Speech-Language Therapy No Subjective Patient Report Pt was lying in bed working with his cell phone and watching TV upon DOCUMENT REVIEW SPECIALIST arrival. He denied dysphagia symptoms and has been tolerating regular texture and thin liquids via heart healthy diet , per medical and pt reports. Pt stated that speech and language appear to be back to baseline. He is able to communicate what he needs and wishes to and feels that he tracks and comprehends conversations normally. Assessment Oral Motor Examination Completed Yes Results Mild right side facial droop noted. No other asymmetry observed. All other structures appear to be WNL of strength, coordination and ROM. Pt has natural dentition in good condition. Voice was WNL. Informal Assessment Receptive Language Normal Yes Expressive Language Normal Yes Pragmatic Language Normal Yes: Pt's responses to questions were limited, requiring prompts for expansion. Speech Normal Yes Cognition Normal No: Pt scored 21/30 on SLUMS administered by OT Cognitive Impairment(s) Short-term memory Findings/Results Language Function Within functional limits Cognitive Function Mildly impaired Findings No obvious expressive or receptive language deficits were observed during limited assessment. Speech was clear and 100% intelligible. The pt was minimally participatory, providing single word/ sentences responses and requiring verbal prompts for expansion of ideas and thoughts. Once expanded, however, responses to orientation questions and problem scenarios were appropriate. Pt was oriented x4. He produced diadochokinetic tasks and automatic speech WNL. Pt was able to recite days of the week backwards. Per OT report, the pt exhibited limited number of items listed in a category and deficits in ST memory. When asked about memory of daily tasks/information, the pt responded in vague terms, shrugged his shoulders and stated he thought he was okay. Speech and communication skills appear to be WFL for basic communication. Given the pt's limited participation and SLUMS results, further assessment of expressive, receptive and cognitive communication skills is recommended via home health or outpatient speech therapy for more thorough evaluation of possible underlying deficits that may interfere with the pt 's ability to carry out moderate to complex ADLs and conversations. Cognitive Communication Deficits Self-awareness of Cognitive- Limited awareness (minimal Communication Deficits appreciation without specificity) Prognosis Prognosis Good Based on Duration of symptoms/severity, Time since onset Plan of Care Speech-Language Treatment No Patient/Caregiver Education Described results of evaluation,Patient expressed understanding of evaluation Discharge Recommendations Home with Home Health
--- NOTE | 2021-02-17 11:31 | OT.IPNOTE ---
Checking pt on to see a second time, pt asleep. Touched base with nursing if pt going home to left the family be aware to assist more for his needs. Not able to talk to the pt to get permission to call his family as pt sleeping.
--- NOTE | 2021-02-17 12:05 | DI.ECHO.S_ITS ---
[facility]---------+ [facility] +---------+ : : [address] : [address] : : : : [id number] : : : : Phone: [phone]+ Echocardiogram Report + + :Name: SANG VILLALTA Study Date: 02/17/2021 Height: 68 in : :[facility] ReadingLocation: Weight: 238 lb: : Gender: Male BSA: 2.2 m2 : :: 1960 Age: 60 yrs : :Reason For Study: CVA : :Ordering Physician: NICOLASA, : :JAIMEE Performed By: Lachelle Nance : :Referring: JAIMEE BALDWIN : + + Interpretation Summary There is mild concentric left ventricular hypertrophy. The ejection fraction is estimated to be 65-70%. Unable to grade diastolic function. Normal right ventricular systolic function. The left atrium is mildly dilated. Mild aortic regurgitation. Unable to estimate PASP. The ascending aorta is mild to moderately dilated. Compared to the prior study dated 05/24/2020, no significant change. Procedure: A two-dimensional transthoracic echocardiogram with color flow and Doppler was performed. The study quality was technically adequate. There is no prior echocardiogram noted for this patient. The patient was in sinus rhythm with heart rates between 72-82 bpm during the exam. The patient had occasional PVCs during the exam. Left Ventricle: The left ventricle is normal in size. Proximal septal thickening is noted. There is mild concentric left ventricular hypertrophy. The ejection fraction is estimated to be 65-70%. Right Ventricle: The right ventricle is not well visualized. The right ventricle is grossly normal size. The right ventricular systolic function is normal. Atria: The left atrium is mildly dilated. Right atrial size is normal. There is no Doppler evidence for an interatrial shunt. Mitral Valve: The mitral valve leaflets are slightly calcified. There is trace mitral regurgitation. Aortic Valve: The aortic valve is trileaflet. The aortic valve opens well. The aortic valve is slightly calcified. There is no aortic valve stenosis. There is mild aortic regurgitation. Tricuspid Valve: The tricuspid valve is not well visualized, but is grossly normal. There is trace tricuspid regurgitation. Pulmonary artery pressures cannot be estimated because of the lack of a measurable TR jet velocity but the IVC suggests a CVP of around 3 mmHg. Pulmonic Valve: The pulmonic valve is not well seen, but is grossly normal. There is no pulmonic valvular regurgitation. Great Vessels: The aortic root is normal size. The ascending aorta is mildly enlarged. The IVC is of normal diameter and collapses greater than 50% with a sniff. This suggests a low right atrial pressure of 3 mm Hg. Pericardium/ Pleura There is no pericardial effusion. There is no pleural effusion. MMode/2D Measurements & Calculations LVIDd: 5.7 cm LVOT diam: 2.2 cm LVIDs: 3.5 cm Ao root diam: 3.5 cm FS: 38.4 % asc Aorta Diam: 3.9 cm IVSd: 1.0 cm LVPWd: 1.3 cm LV knowles. diameter/BSA (cm/m^2): 2.6 LV sys. diameter/BSA (cm/m^2): 1.6 LA A2 area: 28.0 cm2 RA long axis: 5.7 cm LA A4 area: 21.7 cm2 RA area: 17.7 cm2 LA length (vol): 6.1 cm RA vol: 47.2 ml LA vol: 84.6 ml RA : 21.5 ml/m2 LA vol index: 38.5 ml/m2 IVC diam: 1.8 cm TAPSE: 2.2 cm Doppler Measurements & Calculations Ao V2 max: 156.1 cm/sec LVOT Max Gildardo: 128.9 cm/sec Ao V2 mean: 119.8 cm/sec LV V1 max P.6 mmHg Ao max P.7 mmHg LV V1 VTI: 25.7 cm Ao mean P.2 mmHg WILSON(I,D): 3.1 cm2 Ao V2 VTI: 32.4 cm WILSON(V,D): 3.2 cm2 sev ratio: 0.80 WILSON indexed to BSA (cm^2/m^2): 1.4 MV E max gildardo: 79.5 cm/sec PA V2 max: 101.7 cm/sec MV A max gildardo: 63.1 cm/sec PA V2 mean: 80.0 cm/sec MV E/A: 1.3 PA mean P.8 mmHg Med Peak E' Gildardo: 5.3 cm/sec PA pr(Accel): 37.9 mmHg E/E' med: 15.1 Lat Peak E' Gildardo: 6.2 cm/sec E/E' lat: 12.7 E/e' average: 13.9 MV dec time: 0.22 sec SV(LVOT): 100.6 ml Reading Physician:02:05 PM
[2021-02-17 12:30] VITALS: BP 135/78; PULSE 72; RESP 18; TEMP 36.6; O2SAT 97
--- NOTE | 2021-02-17 12:43 | OT.IP.TRT ---
Current Diagnoses COVID-19 (02/15/21) Occupational Therapy Treatment Note M2 OT-IP Current Condition Start: 02/17/21 09:28 Freq: Status: Active Protocol: Document 02/17/21 09:28 [facility] (Rec: 02/17/21 10:28 [facility] [id number]) Occupational Therapy Current Condition Current Condition Evaluation Date 02/17/21 Treatment Diagnosis CVA Diagnosis Onset Date 02/16/21 M3 OT- IP Subjective and Pain Start: 02/17/21 09:28 Freq: Status: Active Protocol: Document 02/17/21 12:33 [facility] (Rec: 02/17/21 12:43 [facility] [id number]) OT- Subjective Occupational Therapy Visit Type Type Treatment Note Visit Start Time 12:00 Visit Stop Time 12:26 Total Visit Minutes 26 Occupational Therapy Visit Comments Patient Comments Pt agreed to work with OT regarding dressing needs. pt gave OT permission to call his ex- . Patient/Caregiver Goals To go home. OT Pain Assessment Pain When Pain Assessed At Rest Pain Present Pain Present Denied Pain M4 OT- IP ADL's Start: 02/17/21 09:28 Freq: Status: Active Protocol: Document 02/17/21 12:33 [facility] (Rec: 02/17/21 12:43 [facility] [id number]) OT ADL-Dressing General Eval Lower Body Dressing Ability Standby Assistance Comments OT Dressing Comments ABle to show pt use of LB dressing equipment to increase his ease for dressing needs. OT ADL-Toileting Comments OT Toileting Comments Pt did not have to use the toilet. OT ADL-Bathing Comments OT Bathing Comments Suggested pt use of shower chair for home for increased safety. M5 OT- IP IADL's Start: 02/17/21 09:28 Freq: Status: Active Protocol: Document 02/17/21 09:28 [facility] (Rec: 02/17/21 10:28 [facility] [id number]) OT-Instrumental Activities of Daily Living Home Safety Awareness Awareness of Need for Assistance at Home Good Awareness Ability to Problem Solve Emergency Able to Problem Solve Situations Medication Management Medication Management Comments Pt be good to have his daughter/family provide supervision due to his decreased STM. Money Management Money Management Comments Pt would benefit from assist as during SLUMS having difficulty to calculate numbers. Meal Preparation Meal Preparation Comments Pt would benefit from assist due to decreased dynamic balance at this time. Quality Engineer Medical Device Quality Engineer Medical Device Comments Pt would benefit from assist due to decreased dynamic balance at this time. Driving Driving Concerns Identified Regarding Safety M6 OT- IP Functional Cognition Start: 02/17/21 09:28 Freq: Status: Active Protocol: Document 02/17/21 12:33 [facility] (Rec: 02/17/21 12:43 [facility] [id number]) Cognitive Factors Limiting Selfcare Function Cognitive Comments Cognitive Assessment Comments Pt able to follow directions for LB dressing equipment needs. M7 OT- IP Mobility and Balance Start: 02/17/21 09:28 Freq: Status: Active Protocol: Document 02/17/21 12:33 [facility] (Rec: 02/17/21 12:43 [facility] [id number]) OT- Bed Mobility Assessment Rolling Type of Rolling Roll to Left Supine to Sit Supine to Sit Assist Standby Assistance Scooting Scooting to Edge of Bed Standby Assistance OT-Transfer Assessment Sit to and From Stand Sit to and from Stand Standby Assistance Transfers Transfer Ability Standby Assistance Technique Transfer Destination Bed Devices Transfer Assistive Devices Front Wheeled Walker Comments Mobility Comments Able to have pt try FWW in the room. Pt states does not feel that it is urgent for him to use a FWW. Also suggested a 4ww would be best as therefore he could put items on the seat versus carry them. Able call and talk to pt's ex- regarding suggestion of equipment. OT- Gait Assessment Comments Gait Ability Comments SBA in the room. OT- Balance Assessment Sitting Balance and Reactions Static Sitting Balance Ability Good Dynamic Sitting Balance Ability Good Standing Balance and Reactions Static Standing Balance Ability Good Dynamic Standing Balance Ability Fair M8 OT- IP Objective Assessments Start: 02/17/21 09:28 Freq: Status: Active Protocol: Document 02/17/21 09:28 [facility] (Rec: 02/17/21 10:28 [facility] [id number]) OT Gross Range of Motion Upper Extremity Range of Motion Assessment Right Impaired OT Strength Upper Extremity Strength Assessment Within Functional Limits Comments Strength Comments RUE decreased AROM due to falling of a 20ft ladder years ago. OT- Coordination Assessment Comments Coordination Comments Intact fot eating needs. OT-Muscle Tone Assessment Muscle Tone WNL Yes OT Sensation Assessment Comments Summary Comments Intact for light touch. Pt decreased propricoeption for right hand and wrist. M9 OT- IP Assessment and Plan Start: 02/17/21 09:28 Freq: Status: Active Protocol: Document 02/17/21 12:33 [facility] (Rec: 02/17/21 12:43 [facility] [id number]) OT Summary Assessment and Plan Potential Rehabilitation Potential Good Analytic Complexity at Evaluation Moderate Summary Progress Towards Goals Progressing Toward Goals Assessment Summary With permission from pt able to call pt's ex- to see if anyone can stay with him if pt goes home. Pt's ex- Aleyda states between his kids and her that someone will be home to help take care of him as needed. Able to rely that he could benefit from a shower chair, FWW or 4ww and have Home health. In addition able to let her know that he is having memory and cognitive deficits at this time and suggested no driving. Pt's ex- able to state good understanding for all OT suggestions. Able to give nursing equipment list info to give to ex- later if and when he is ready to go home. Goals Grooming Goal Independent Dressing Goal Independent Toileting Goal Independent Bathing Goal Independent Toilet Transfer Goal Independent Shower Transfer Goal Independent Days to Meet Goals 5 Frequency of Treatment Frequency Of Treatment Twice a Day Treatment Plan OT Treatment Plan ADL Training,Functional Cognition Training,Functional Mobility,Patient/Family Education,Discharge Planning Other Treatment Recommendations and Next shower if still here Treatment Focus Discharge Recommendations OT Discharge Recommendations Home with / Assist Available,Home Health Home Equipment Needs shower chair, fww or 4ww Transportation Needs at Discharge Private Vehicle
--- NOTE | 2021-02-17 13:23 | CM.DPC ---
DCP Discharge Home with HH Per MD, pt likely stable for d/c home today with assist and HH pending Echo results. Per OT/ST recommending HH at d/c. OT spoke to pt's ex- who will be providing transport home for pt and she confirms that there will always be family present to provide assist and they are very agreeable to HH as well as pt. No HH preference. SW made HH referral based on vendor calendar to [facility] and confirmed they accept his [facility] insurance and faxed initial referral along with MD orders, signed F2F and awaiting d/c summary pending Echo. Plan: Patient to likely d/c home today via family POV and new [facility] referral pending Echo results. JEWEL Ruvalcaba
--- NOTE | 2021-02-17 15:39 | PC.NURSE ---
Pt discharge home via private vehicle. Pt transported via wheelchair. Pt left in stable conditions.
--- NOTE | 2021-02-17 18:59 | P.DS_ITS ---
History of Present Illness History of Present Illness Chief complaint: Incoherent post covid, slurred speech Narrative: Mr. Argueta is a 60M with PMH CAD s/p stents, HTN, HL, GERD, obesity who comes in with confusion. Apparently patient has not been feeling well for a couple weeks. He has had one dose of vaccine for COVID prior to not feeling well. He had symptoms of cough, shortness of breath fever. He was not tested for COVID. Multiple family members were also tested and were COVID positive. He never felt completely better, but still with some fatigue, however he was recovering according to family at bedside. Over the last 2 days he has not been at his mental status baseline. He has been more confused, not acting his normal self. He has problems with speaking normally. He usually ambulates without issue s, but has been having balance issues. He has been slurring speech. No focal weakness noted. He has never had a history of a stroke. He does acknowledge significant alcohol use and says 4-5 maybe mroe shots of alcohol a day. His last drink he says was two weeks ago. He is not having fevers/chills, no headaches, no chest pain, no shortness of breath, no cough. No abdominal pain, nausea, vomiting. No diarrhea. No dysuria. In the ED workup was done he was found to have a temperate of 98.3, heart rate 84, respiratory 16, blood pressure 98/61, sats 97% on room air. Labs notable for WBC 12.3, Hgb 12.3, BUN 21, creatinine 1.5, AST 81, ALT 100. Ammonia negative. Troponin negative. Alcohol negative. COVID positive. Chest xray showed bilateral infiltrates. CT head showed no acute process. Discharge Providers Provider Date of admission: 02/15/21 16:53 Discharge Date: 02/17/21 Primary care physician: Ronny Wagner MD Consults: 02/15/21 19:24 Consult to Discharge Planning Routine Comment: Consult to Occupational Therapy Evaluate & Treat Comment: Physician Instructions: Evaluate and treat Consult to Physical Therapy Evaluate & Treat Comment: Physician Instructions: Evaluate and Treat Consult to Speech Therapy Evaluate & Treat Comment: Physician Instructions: Evaluate and treat 02/17/21 11:04 Consult to Home Health Routine Comment: CVA, Covid pneumonia Reason For Exam: Set up RN/PT/ST for d/c home Discharge provider: Zeb Torres MD Summary Hospital Course Discharge Diagnosis: 1. Acute CVA 2. Acute encephalopathy 3. COVID pneumonia 4. Acute kidney injury 5. Coronary artery disease Mr. Argueta is a 60M with PMH of CAD s/p stents, alcohol abuse, recent COVID inf ection who presents with altered mental status. 1. Acute CVA possibly secondary to COVID causing inflammation of vasculature -evidence of right facial droop, slurred speech, aphasia -patient was on daily aspirin and clopidogrel added for anti-platelet therapy, continue high dose statin -CT head negative for acute process -MR head shows multiple small lesions concerning for embolic event, MR shows incomplete stenosis of ICA, possibly complete occlusion of V4 of right vertebral artery -carotid ultrasound < 50% bilateral stenosis -echo showed LVEF 65-70%, mild LVH, mild AR -no AFib on telemetry -order PT/OT/speech recommending home health therapy 2. Acute encephalopathy -probably from stroke vs COVID -negative cultures -CT abdomen showed distended bladder, but no other acute process 3. COVID pneumonia -has bilateral infiltrates on xray -no respiratory symptoms -hold on starting remdesivir, dexamethasone as patient has normal oxygen 4. MARISOL -improving, Cr 1.50 on admit, 1.36 on discharge -did have distended bladder, possibly has component of bladder obstruction -hold losartan, torsemide restarted on discharge -creatinine improved with fluids, urinating well 5. CAD s/p stents -continue aspirin/statin as above -continue metoprolol, imdur 6. Alcohol abuse -patient states has not had a drink in 2 weeks -EtOH level negative -outside window of withdrawal 7. Obesity -BMI 36.2 -encouraged lifestyle modifications 8. BPH -continue finasteride Status at Discharge Cognitive/behavioral status at discharge: oriented Functional status at discharge: uses cane/walker Overall status at discharge: patient is progressing back to baseline Time Spent with Patient Time spent: Greater than 30 minutes Exam Vital Signs (past 8 hours): - 02/17/21 12:30 Temperature 97.9 F Pulse Rate 72 Respiratory Rate 18 Blood Pressure 135/78 Pulse Oximetry 97 Oxygen Delivery Method Room Air Oxygen Flow Rate 0 Objective Labs Result Diagrams: 02/16/21 04:40 02/16/21 04:40 Labs: Laboratory Results - last 24 hr 02/15/21 21:55 A. baumannii (PCR) Not detected Margarette albicans (PCR) Not detected C. glabrata (PCR) Not detected C. krusei (PCR) Not detected C. parapsilosis (PCR) Not detected C. tropicalis (PCR) Not detected Enterobacteriac sp PCR Not detected E. cloacae complex PCR Not detected Enterococcus sp PCR Not detected E. coli (PCR) Not detected H. influenzae (PCR) Not detected Klebsiella oxytoca PCR Not detected Klebsiella pneumoniae Not detected List. monocytogenes PCR Not detected N. meningitidis (PCR) Not detected Proteus species (PCR) Not detected Serratia marcescens PCR Not detected Staphylococcus sp PCR Not detected Staph aureus (PCR) Not detected mecA-Methicil Res Gene Not detected Streptococcus sp PCR Not detected Group A Strep (PCR) Not detected Strep agalactiae (PCR) Not detected Strep pneumoniae (PCR) Not detected P. aeruginosa (PCR) Not detected Laverne/B-Vanco Res Genes Not detected KPC-Carbap Res Gene PCR Not detected PFSH Medical History Alcohol abuse CAD (coronary artery disease) Chronic GERD Mild peripheral edema Obesities, morbid Surgical History History of coronary artery stent placement Social History household members: family Smoking Status: Never smoker Discharge Plan Discharge Plan Patient Disposition: Home Provider Discharge Comment: Inform patient ECHO shows no concerning findings and unchanged from his prior in May 2020. Discharge orders & Medications Prescriptions: New clopidogrel 75 mg tablet 75 mg PO DAILY Qty: 30 RF: 0 Continued atorvastatin 80 mg Tablet 80 mg PO BEDTIME RF: 0 metoprolol succinate 50 mg Tablet Extended Release 24 Hr 100 mg PO BID RF: 0 omeprazole 40 mg Capsule,Delayed Release(Dr/Ec) 40 mg PO DAILY RF: 0 aspirin [Aspirin Childrens] 81 mg Tablet,Chewable 81 mg PO DAILY RF: 0 finasteride 5 mg Tablet 5 mg PO DAILY RF: 0 losartan 50 mg tablet 100 mg PO DAILY RF: 0 isosorbide mononitrate 60 mg Tablet Extended Release 24 Hr 60 mg PO BID RF: 0 clobetasol 0.05 % Cream 1 applic TOPICAL USEASDIRECTD RF: 0 amlodipine 5 mg tablet 5 mg PO DAILY RF: 0 torsemide 20 mg Tablet 20 mg PO DAILY RF: 0 prazosin 1 mg Capsule 1 mg PO BID RF: 0 Follow up/Referrals: Ronny Wagner MD [Primary Care Provider] - Diet/Activity/Treatments Diet: Diet as Tolerated Visit Report/Discharge Packet Instructions: Progress in Stroke Prevention, How to Prevent Falls Discharge Data Primary Care Provider: Ronny Wagner Quality VTE Deep Vein Thrombosis/Pulmonary Embolism Present on Admission: No
== END 2021-02-17 15:45 | disposition home health service (06) | DRG 137 ==
LOC: ED 16:29 → AC 16:55
PROVIDERS: Nurse Practitioner Family; Admitting Provider Internal Medicine; Emergency Provider Emergency Medicine; PCP Family Medicine; Referring Provider Emergency Medicine; Visit Provider Internal Medicine
DX: U07.1 COVID-19 (principal); J12.82 Pneumonia due to coronavirus disease 2019; I63.40 Cerebral infarction due to embolism of unspecified cerebral artery; G93.49 Other encephalopathy; R29.702 NIHSS score 2; N17.9 Acute kidney failure, unspecified; I25.10 Atherosclerotic heart disease of native coronary artery without angina pectoris; I10 Essential (primary) hypertension; N40.0 Benign prostatic hyperplasia without lower urinary tract symptoms; K21.9 Gastro-esophageal reflux disease without esophagitis; E66.9 Obesity, unspecified; Z95.5 Presence of coronary angioplasty implant and graft; Z68.36 Body mass index [BMI] 36.0-36.9, adult
CPT/HCPCS: 36415; 70450; 70548; 70553; 71045; 71275; 74174; 80048; 80053; 80076; 80305; 80320; 81001; 82140; 82550; 82553; 82570; 82962; 83036; 83690; 83735; 84100; 84145; 84300; 84484; 85025; 87040; 87086; 87150; 87205; 87633; 87635; 92523; 93005; 93306; 93880; 94760; 97161; 97166; 97530; 97535; 99285; 99406; C9803; A9579; J0696; J1644; J2060; Q9967

== ENCOUNTER → 2023-06-28 10:13 | Outpatient (CLI) | payer MEDICARE, MEDICAID, SELFPAY ==
[2021-02-15 18:17] VITALS: BMI 36.6
--- NOTE | 2023-06-30 02:36 | DI.NM.S_ITS ---
DATE OF SERVICE: 06/28/2023 PROCEDURE: Pharmacological perfusion study. INDICATION: Known history of coronary artery disease with chest pain, hypertension. RADIOPHARMACEUTICAL: 26.9 millicurie technetium-99m Myoview IV was injected at stress and 25.3 millicurie technetium-99m Myoview IV was injected at rest. CARDIAC STRESS: The patient underwent IV Lexiscan perfusion study under the supervision of an attending staff using standard intravenous Lexiscan as per protocol. The patient remained hemodynamically stable. Baseline rhythm was sinus with frequent PACs and occasional PVCs which persisted during stress. No obvious AFib or ventricular tachycardia. No ischemic electrocardiographic changes. No chest pain. RAW DATA: There is increased subdiaphragmatic activity. GATED STUDY: Resting LV ejection fraction 63% and stress LV ejection fraction 71%. No obvious wall motion abnormalities. Resting end- diastolic volume 106 mL. TID ratio 1.07, which is within normal limits. Lung/heart ratio 0.50, which is abnormal. MYOCARDIAL PERFUSION SCAN: Please note that this patient does not have any prone images. Stress supine and resting supine images were compared to each other. There is a small size, mildly decreased perfusion of basal inferior wall which is predominantly fixed. However, summed stress score and summed rest score 0 and difference score is zero. There is normal wall motion. Most likely, we are dealing with tissue attenuation artifact. The patient had a perfusion study in January 2020, at that time had similar perfusion defect and that time patient had prone images and during prone images, basal inferior wall defect got completely resolved as per the report. CONCLUSION: I will call this study likely a normal myocardial perfusion study without any convincing ischemia or infarction pattern. Overall preserved left ventricular function. TID ratio within normal limits however lung heart ratio 0.50. Consider 2D echo to make sure there is no diastolic dysfunction or valvular pathology. Summed stress score and summed rest score is zero. Kendall Manfred - TENZIN/dorys/tracy doc#: [id number]/job#: [id number] dd: 06/29/2023 16:22:00 dt: 06/30/2023 02:16:00 DICTATING MD/COPIES TO: Rodney Diop MD COPIES MNE: ERAN;
== END ==
LOC: NUCM 10:14
PROVIDERS: PCP Family Medicine; Referring Provider Internal Medicine Cardiovascular Disease; Visit Provider Internal Medicine Cardiovascular Disease
DX: I25.10 Atherosclerotic heart disease of native coronary artery without angina pectoris (principal); R07.9 Chest pain, unspecified
CPT/HCPCS: 78452; 93017; A9502; J2785

== ENCOUNTER 2023-08-25 17:50 | Emergency (ER) | payer MEDICARE, MEDICAID, SELFPAY ==
[2021-02-15 18:17] VITALS: BMI 36.6
[2023-08-25] VITALS (11 sets, daily range): BP systolic 151–192; BP diastolic 87–96; PULSE 67–74; RESP 16–27; TEMP 36.9; O2SAT 96–98; BMI 42.6
--- NOTE | 2023-08-25 18:04 | DI.RAD.S_ITS ---
PROCEDURE: XR CHEST 1V INDICATIONS: chest pain TECHNIQUE: One view of the chest was acquired. COMPARISON: [facility], CR, XR CHEST 1V, 02/15/2021, 16:40. [facility], CR, XR CHEST 1V, 06/05/2020, 11:35. FINDINGS: Surgical changes and devices: None. Lungs and pleura: Lungs are clear. No pleural effusions or pneumothorax. Mediastinum: Mediastinal contours appear normal. Heart size appears prominent. Bones and chest wall: No suspicious bony lesions. Overlying soft tissues appear unremarkable. IMPRESSION: No acute cardiopulmonary abnormality is seen. Dictated by: Jorge Tavarez M.D. on 08/25/2023 at 19:36 Approved by: Jorge Tavarez M.D. on 08/25/2023 at 19:36
[2023-08-25 18:19] LABS: Add Manual Diff / Slide Review NO; Basophils Absolute Auto 100 /uL (0-100); Basophils Percent Auto 0.6 % (0-2); Eosinophils Absolute Auto 300 /uL (0-450); Hematocrit 36.5 % (41-53); Hemoglobin 12.4 g/dL (13.5-17.5); Lymphocytes Absolute Auto 2600 /uL (1100-4500); Lymphocytes Percent Auto 31.5 % (25-40); Mean Corpuscular HGB Conc 33.8 % (30-36); Mean Corpuscular Hemoglobin 34.1 PG (26-34); Mean Corpuscular Volume 100.9 fL (80-100); Monocytes Absolute Auto 700 /uL (0-900); Monocytes Percent Auto 8.6 % (3-14); Neutrophils Absolute Auto 4600 /uL (1500-7000); Neutrophils Percent Auto 55.3 % (50-75); Platelet Count 208 X10^3/uL (150-400); Red Blood Cell Count 3.62 X10^6/uL (4.5-5.9); Red Cell Distribution Width 13.6 % (11.6-14.8); White Blood Cell Count 8.3 X10^3/uL (4.5-11.0)
[2023-08-25] MEDS: ASPIRIN 81 MG CHEW TAB 324 MG PO (18:20)
[2023-08-25 18:30] LABS: INR 1.1 (0.9-1.3); Prothrombin Time 12.3 SECONDS (9.4-12.5)
[2023-08-25 18:33] LABS: PTT Partial Thromboplastin Tim 38 SECONDS (25.1-36.5)
--- NOTE | 2023-08-25 18:36 | ED.CHESTPAIN ---
HPI - Chest Pain General Chief Complaint: Chest Pain Stated Complaint: INTERMITTENT CHEST PAIN Time Seen by Provider: 08/25/23 18:24 Source: patient Mode of arrival: Wheelchair Limitations: no limitations History of Present Illness HPI narrative: Patient is a 63-year-old male. Has a history of high cholesterol, hypertension. Had a stress test approximately 1 month ago that he states was normal. He is here for evaluation of 3 episodes of sharp left-sided chest discomfort. They occurred earlier in the afternoon. Each episode lasted a few seconds and then resolved. Not particularly worse with palpation or movement or breathing. He was currently asymptomatic. No shortness of breath. No radiation of the symptoms. Has never had symptoms like this in the past. He states that because of the discomfort he wanted to come in to get his heart checked out. Related Data Home Medications Medication Instructions Recorded Confirmed aspirin 81 mg chewable tablet 81 mg PO DAILY 01/18/20 02/15/21 (Aspirin Childrens) atorvastatin 80 mg tablet 80 mg PO BEDTIME 01/18/20 02/15/21 finasteride 5 mg tablet 5 mg PO DAILY 01/18/20 02/15/21 metoprolol succinate 50 mg 100 mg PO BID 01/18/20 02/15/21 tablet,extended release 24 hr omeprazole 40 mg capsule,delayed 40 mg PO DAILY 01/18/20 02/15/21 release amlodipine 5 mg tablet 5 mg PO DAILY 02/15/21 02/15/21 clobetasol 0.05 % topical cream 1 applic topical USEASDIRECTD 02/15/21 02/15/21 isosorbide mononitrate 60 mg 60 mg PO BID 02/15/21 02/15/21 tablet,extended release 24 hr losartan 50 mg tablet 100 mg PO DAILY 02/15/21 02/15/21 prazosin 1 mg capsule 1 mg PO BID 02/15/21 02/15/21 torsemide 20 mg tablet 20 mg PO DAILY 02/15/21 02/15/21 Previous Rx's Medication Instructions Recorded clopidogrel 75 mg tablet 75 mg PO DAILY #30 tabs 02/17/21 Allergies Allergy/AdvReac Type Severity Reaction Status Date / Time JOSEFA Inhibitors Allergy Verified 06/05/20 11:18 lisinopril Allergy Verified 06/05/20 11:18 Review of Systems Constitutional Constitutional: Reports system reviewed and no additional complaints, except as documented Cardiovascular Cardiovascular: Reports system reviewed and no additional complaints, except as documented Respiratory Respiratory: Reports system reviewed and no additional complaints, except as documented Gastrointestinal Gastrointestinal: Reports system reviewed and no additional complaints, except as documented Integumentary/Breasts Skin/Breast: Reports system reviewed and no additional complaints, except as documented Hematologic/Lymphatic On Anticoagulants: No Patient History Medical History Obesities, morbid Chronic GERD Alcohol abuse Mild peripheral edema CAD (coronary artery disease) Surgical History History of coronary artery stent placement Social History household members: family Smoking Status: Never smoker Smoking Status: Never smoker alcohol intake frequency: 0-2 drinks per day Substance Use Type: does not use Exam Initial Vital Signs Initial Vital Signs: Vital Signs Temperature 98.4 F 08/25/23 17:56 Pulse Rate 74 08/25/23 17:56 Respiratory Rate 22 08/25/23 17:56 Blood Pressure 151/93 H 08/25/23 17:56 Pulse Oximetry 98 08/25/23 17:56 Oxygen Delivery Method Room Air 08/25/23 17:56 Const General: cooperative, comfortable and No ill appearing HENWI Head: normal to inspection and normocephalic Resp Effort & Inspection: normal respiratory effort Auscultation: clear to auscultation bilaterally Cardio Rate: regular rate Rhythm: regular rhythm GI Inspection: normal to inspection and non-distended Skin General: no rashes or lesions noted Neuro General: patient alert, patient awake and moves all extremities Extrem General: normal to inspection Scores HEART Score Heart Score history: Slightly Suspicious Heart Score EKG: Normal Heart Score Age: > or = 65 years old Heart Score risk factors: 1-2 risk factors Heart Score troponin: < or = to normal limit Heart Score Total: 3 Course Orders Ordered: ED Orders 08/25/23 18:04 XR chest 1V Stat EKG-12 Lead Stat 08/25/23 18:14 Complete Blood Count AUTO DIFF Stat Comprehensive Metabolic Panel Stat Lipase Stat Magnesium Stat PTT Partial Thromboplastin Marcus Stat Prothrombin Time INR Stat Troponin & CK Cardiac Panel Stat 08/25/23 20:15 Troponin & CK Cardiac Panel Stat Discontinued Medications Aspirin (Aspirin 81 Mg Chew Tab) 324 mg PO NOW ONE Stop: 08/25/23 18:05 Last Admin: 08/25/23 18:20 Dose: 324 mg Documented By: ADELAIDE Vital Signs Vital signs: Vital Signs - 8 hr 08/25/23 17:56 08/25/23 18:13 08/25/23 18:14 Temperature 98.4 F Pulse Rate 74 72 68 Respiratory Rate 22 20 16 Blood Pressure 151/93 H Pulse Oximetry 98 97 96 Oxygen Delivery Method Room Air 08/25/23 18:14 08/25/23 18:30 08/25/23 19:00 Temperature Pulse Rate 71 67 Respiratory Rate 21 23 Blood Pressure 162/87 H Pulse Oximetry 97 98 Oxygen Delivery Method 08/25/23 19:01 08/25/23 19:01 08/25/23 19:30 Temperature Pulse Rate 68 Respiratory Rate 27 H Blood Pressure 170/96 H 174/92 H Pulse Oximetry 96 Oxygen Delivery Method 08/25/23 19:30 08/25/23 20:00 08/25/23 20:00 Temperature Pulse Rate 67 68 Respiratory Rate 19 22 Blood Pressure 176/92 H Pulse Oximetry 97 97 Oxygen Delivery Method 08/25/23 20:30 08/25/23 20:31 08/25/23 20:31 Temperature Pulse Rate 67 68 Respiratory Rate 23 23 Blood Pressure 189/92 H Pulse Oximetry 97 96 Oxygen Delivery Method 08/25/23 21:00 08/25/23 21:00 Temperature Pulse Rate 72 Respiratory Rate 19 Blood Pressure 192/92 H Pulse Oximetry 97 Oxygen Delivery Method MDM - Chest Pain Lab Data Attestation: I reviewed the patient's lab results. 08/25/23 18:14 08/25/23 18:14 Labs: Lab Results 08/25/23 08/25/23 Range/Units 18:14 20:15 WBC 8.3 (4.5-11.0) X10^3/uL RBC 3.62 L (4.5-5.9) X10^6/uL Hgb 12.4 L (13.5-17.5) g/dL Hct 36.5 L (41-53) % MCV 100.9 H (80-100) fL MCH 34.1 H (26-34) PG MCHC 33.8 (30-36) % RDW 13.6 (11.6-14.8) % Plt Count 208 (150-400) X10^3/uL Neut % (Auto) 55.3 (50-75) % Lymph % (Auto) 31.5 (25-40) % [place] % (Auto) 8.6 (3-14) % Eos % (Auto) 4.0 (2-4) % Baso % (Auto) 0.6 (0-2) % Neut # (Auto) 4600 (2321-5322) /uL Lymph # (Auto) 2600 (6739-7736) /uL [place] # (Auto) 700 (0-900) /uL Eos # (Auto) 300 (0-450) /uL Baso # (Auto) 100 (0-100) /uL PT 12.3 (9.4-12.5) SECONDS INR 1.1 (0.9-1.3) APTT 38 H (25.1-36.5) SECONDS Sodium 137 (137-145) mmol/L Potassium 3.9 (3.4-5.1) mmol/L Chloride 106 (98-107) mmol/L Carbon Dioxide 25 (22-32) mmol/L BUN 13 (9-20) mg/dL Creatinine 0.78 (0.66-1.25) mg/dL Estimated GFR > 60 (>60) mL/min BUN/Creatinine Ratio 16.7 (6-22) Glucose 108 (80-110) mg/dL Calcium 9.3 (8.4-10.2) mg/dL Magnesium 1.5 L (1.6-2.3) mg/dL Total Bilirubin 0.6 (0.2-1.3) mg/dL AST 36 (17-59) IU/L ALT 27 (<50) IU/L Alkaline Phosphatase 65 (38-126) U/L Total Creatine Kinase 425 H 378 H (55-170) U/L Troponin I < 0.012 0.016 (0.01-0.034) ng/mL Total Protein 7.9 (6.3-8.2) g/dL Albumin 4.0 (3.5-5.0) g/dL Globulin 3.9 (1.7-4.1) g/dL Albumin/Globulin Ratio 1.0 (1.0-2.8) Lipase 128 (23-300) U/L Imaging Data Chest x-ray: Radiologist's Impression: PROCEDURE: XR CHEST 1V INDICATIONS: chest pain TECHNIQUE: One view of the chest was acquired. COMPARISON: [facility], CR, XR CHEST 1V, 02/15/2021, 16:40. [facility], CR, XR CHEST 1V, 06/05/2020, 11:35. FINDINGS: Surgical changes and devices: None. Lungs and pleura: Lungs are clear. No pleural effusions or pneumothorax. Mediastinum: Mediastinal contours appear normal. Heart size appears prominent. Bones and chest wall: No suspicious bony lesions. Overlying soft tissues appear unremarkable. IMPRESSION: No acute cardiopulmonary abnormality is seen. ECG Data Attestation: I personally reviewed and interpreted this ECG as follows: Interpretation: Sinus rhythm Ventricular rate is 68 First-degree AV block NH interval 230 milliseconds Normal QRS Normal QTC No ST T wave changes MDM Narrative Medical decision making narrative: 2- troponins. Nonischemic EKG. Low risk heart score. Stated that he had a stress test approximately 1 month ago that he was told that everything. To be normal. His presenting symptoms today are not consistent with ACS as they were 3 distinct sharp left sided chest discomfort that atrial resolved on their own. Patient understands lack of a definitive diagnosis. Will have him contact his primary care doctor for follow-up. He was given strict return precautions. He expressed understanding and agreement. Discharge Plan Departure Patient Disposition: Home Clinical Impression: Atypical chest pain Instructions: DI for Atypical Chest Pain Activity Restrictions/Additional Instructions: Recommend that you continue to take all of your medications as directed. Contact your primary care doctor for follow-up. Return to the emergency department for new or worsening symptoms. Prescriptions: No Action atorvastatin 80 mg Tablet 80 mg PO BEDTIME metoprolol succinate 50 mg Tablet Extended Release 24 Hr 100 mg PO BID omeprazole 40 mg Capsule,Delayed Release(Dr/Ec) 40 mg PO DAILY aspirin [Aspirin Childrens] 81 mg Tablet,Chewable 81 mg PO DAILY finasteride 5 mg Tablet 5 mg PO DAILY losartan 50 mg tablet 100 mg PO DAILY isosorbide mononitrate 60 mg Tablet Extended Release 24 Hr 60 mg PO BID clobetasol 0.05 % Cream 1 applic TOPICAL USEASDIRECTD Rx Instructions: Three times per week amlodipine 5 mg tablet 5 mg PO DAILY torsemide 20 mg Tablet 20 mg PO DAILY prazosin 1 mg Capsule 1 mg PO BID clopidogrel 75 mg tablet 75 mg PO DAILY Qty: 30 0RF Referrals: Ronny Wagner MD [Primary Care Provider] - Stand Alone Forms: Patient Portal/API
[2023-08-25 18:58] LABS: Alanine Aminotransferase 27 IU/L (<50); Alkaline Phosphatase 65 U/L (38-126); Aspartate Aminotransferase 36 IU/L (17-59); BUN Creatinine Ratio 16.7 (6-22); Bilirubin Total 0.6 mg/dL (0.2-1.3); Blood Urea Nitrogen 13 mg/dL (9-20); Calcium 9.3 mg/dL (8.4-10.2); Carbon Dioxide 25 mmol/L (22-32); Chloride 106 mmol/L (98-107); Creatine Kinase 425 U/L (55-170); Estimated Glomerular Filt Rate > 60 mL/min (>60); Globulin 3.9 g/dL (1.7-4.1); Glucose 108 mg/dL (80-110); HEMOLYSIS < 15 (0-50); Lipase 128 U/L (23-300); Magnesium 1.5 mg/dL (1.6-2.3); Potassium 3.9 mmol/L (3.4-5.1); Sodium 137 mmol/L (137-145); Total Protein 7.9 g/dL (6.3-8.2)
[2023-08-25 19:09] LABS: Troponin I < 0.012 ng/mL (0.01-0.034)
[2023-08-25 20:50] LABS: Creatine Kinase 378 U/L (55-170)
[2023-08-25 21:03] LABS: Troponin I 0.016 ng/mL (0.01-0.034)
== END 2023-08-25 21:35 | disposition home or self-care (01) ==
PROVIDERS: Emergency Provider Emergency Medicine; PCP Family Medicine
DX: R07.89 Other chest pain (principal)
CPT/HCPCS: 36415; 71045; 80053; 82550; 83690; 83735; 84484; 85025; 85610; 85730; 93005; 99284

== ENCOUNTER 2023-12-15 18:05 | Emergency (ER) | payer MEDICARE, MEDICAID, SELFPAY ==
[2021-02-15 18:17] VITALS: BMI 36.6
[2023-12-15] VITALS (14 sets, daily range): BP systolic 130–182; BP diastolic 69–99; PULSE 80–89; RESP 18–27; TEMP 36.4–36.8; O2SAT 96–98; BMI 41.4
--- NOTE | 2023-12-15 18:19 | DI.RAD.S_ITS ---
PROCEDURE: XR CHEST 1V INDICATIONS: chest pain TECHNIQUE: One view of the chest was acquired. COMPARISON: [facility], CR, XR CHEST 1V, 08/25/2023, 18:21. [facility], CR, XR CHEST 1V, 02/15/2021, 16:40. FINDINGS: Surgical changes and devices: None. Lungs and pleura: Low lung volumes. No dense consolidation or pleural effusion. Mediastinum: Heart size is at the upper limit of normal. Bones and chest wall: Degenerative changes IMPRESSION: Limited single view radiograph with low lung volumes. No dense consolidation or pleural effusion. Heart size is at the upper limit of normal. Dictated by: Norman Whyte M.D. on 12/15/2023 at 19:44 Approved by: Norman Whyte M.D. on 12/15/2023 at 19:45
--- NOTE | 2023-12-15 18:22 | EKG_ITS ---
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
[2023-12-15 18:39] LABS: Add Manual Diff / Slide Review NO; Basophils Absolute Auto 100 /uL (0-100); Basophils Percent Auto 0.5 % (0-2); Eosinophils Absolute Auto 100 /uL (0-450); Eosinophils Percent Auto 0.7 % (2-4); Hemoglobin 12.2 g/dL (13.5-17.5); Lymphocytes Absolute Auto 2600 /uL (1100-4500); Lymphocytes Percent Auto 22.8 % (25-40); Mean Corpuscular HGB Conc 33.8 % (30-36); Mean Corpuscular Hemoglobin 34.7 PG (26-34); Mean Corpuscular Volume 102.5 fL (80-100); Monocytes Absolute Auto 1000 /uL (0-900); Monocytes Percent Auto 8.8 % (3-14); Neutrophils Absolute Auto 7700 /uL (1500-7000); Neutrophils Percent Auto 67.2 % (50-75); Platelet Count 199 X10^3/uL (150-400); Red Blood Cell Count 3.52 X10^6/uL (4.5-5.9); Red Cell Distribution Width 13.9 % (11.6-14.8); White Blood Cell Count 11.4 X10^3/uL (4.5-11.0)
[2023-12-15] MEDS: ASPIRIN 81 MG CHEW TAB 324 MG PO (18:47)
--- NOTE | 2023-12-15 18:47 | PC.NURSE ---
Patient already took 1 81mg aspirin. Only 3 81mg aspirin taken by patient.
[2023-12-15 18:50] LABS: INR 1.1 (0.9-1.3); Prothrombin Time 12.6 SECONDS (9.4-12.5)
[2023-12-15 18:52] LABS: PTT Partial Thromboplastin Tim 34 SECONDS (25.1-36.5)
[2023-12-15 18:55] LABS: Alanine Aminotransferase 42 IU/L (<50); Albumin 4.4 g/dL (3.5-5.0); Albumin Globulin Ratio 1.2 (1.0-2.8); Alkaline Phosphatase 72 U/L (38-126); Aspartate Aminotransferase 55 IU/L (17-59); BUN Creatinine Ratio 14.3 (6-22); Bilirubin Total 0.9 mg/dL (0.2-1.3); Blood Urea Nitrogen 19 mg/dL (9-20); Carbon Dioxide 30 mmol/L (22-32); Chloride 100 mmol/L (98-107); Creatine Kinase 663 U/L (55-170); Estimated Glomerular Filt Rate 59 mL/min (>60); Globulin 3.8 g/dL (1.7-4.1); Glucose 111 mg/dL (80-110); HEMOLYSIS < 15 (0-50); Lipase 111 U/L (23-300); Magnesium 1.4 mg/dL (1.6-2.3); Potassium 3.6 mmol/L (3.4-5.1); Sodium 138 mmol/L (137-145); Total Protein 8.2 g/dL (6.3-8.2)
[2023-12-15 19:06] LABS: NT-proBNP (BNP-Adult 18+) 78 pg/mL (<125); Troponin I 0.021 ng/mL (0.01-0.034)
--- NOTE | 2023-12-15 20:07 | ED.CHESTPAIN ---
HPI - Chest Pain General Chief Complaint: Chest Pain Stated Complaint: chest pain, uses CPAP pain stronger on Lt side Time Seen by Provider: 12/15/23 20:07 Source: patient, RN notes reviewed and old records reviewed Mode of arrival: Wheelchair Limitations: no limitations Limitations: no limitations History of Present Illness HPI narrative: 63-year-old male with history of hypertension, dyslipidemia, GERD, chronic alcohol use, coronary artery disease with cardiac stents in 2017 on aspirin daily who presents with complaint of chest pain which he describes as sort of epigastric on right and left side radiating across. Patient states happened after he had been outside working on his car had gone inside to sit down and then had symptoms. States no radiation. No shortness shortness of breath. No fevers or chills. No cold cough or congestion. No lightheadedness or syncope. States he does not think he was diaphoretic but notes it has been very hot outside. No nausea or vomiting. States his feet were swollen yesterday but have improved today. Does note he has had a little bit of loose diarrhea like stools recently. No black or blood reported. No urinary symptoms. Patient states episode occurred about 4 hours ago lasted for a brief period of time did return but then resolved again after a brief period of time. No additional episodes. Patient states does have a history of coronary artery disease had cardiac stent placed in 2017 and [place] at [facility]. Patient has not had any other cardiac interventions. He does follow with cardiology locally. Primary care is BREANNE Crowley. Related Data Home Medications Medication Instructions Recorded Confirmed aspirin 81 mg chewable tablet 81 mg PO DAILY 01/18/20 02/15/21 (Aspirin Childrens) atorvastatin 80 mg tablet 80 mg PO BEDTIME 01/18/20 02/15/21 finasteride 5 mg tablet 5 mg PO DAILY 01/18/20 02/15/21 metoprolol succinate 50 mg 100 mg PO BID 01/18/20 02/15/21 tablet,extended release 24 hr omeprazole 40 mg capsule,delayed 40 mg PO DAILY 01/18/20 02/15/21 release amlodipine 5 mg tablet 5 mg PO DAILY 02/15/21 02/15/21 clobetasol 0.05 % topical cream 1 applic topical USEASDIRECTD 02/15/21 02/15/21 isosorbide mononitrate 60 mg 60 mg PO BID 02/15/21 02/15/21 tablet,extended release 24 hr losartan 50 mg tablet 100 mg PO DAILY 02/15/21 02/15/21 prazosin 1 mg capsule 1 mg PO BID 02/15/21 02/15/21 torsemide 20 mg tablet 20 mg PO DAILY 02/15/21 02/15/21 Previous Rx's Medication Instructions Recorded clopidogrel 75 mg tablet 75 mg PO DAILY #30 tabs 02/17/21 Allergies Allergy/AdvReac Type Severity Reaction Status Date / Time JOSEFA Inhibitors Allergy Verified 06/05/20 11:18 lisinopril Allergy Verified 06/05/20 11:18 Review of Systems Review of Systems ROS Unobtainable: All systems reviewed & are unremarkable except as noted in HPI and below Patient History Medical History Obesities, morbid Chronic GERD Alcohol abuse Mild peripheral edema CAD (coronary artery disease) Surgical History History of coronary artery stent placement Social History household members: family Smoking Status: Never smoker Smoking Status: Never smoker alcohol intake frequency: 0-2 drinks per day Substance Use Type: does not use Exam Narrative Exam Narrative: GENERAL: Alert and oriented x three, obese male in mild distress. HEENT: Head normocephalic, atraumatic, EOMI, pupils reactive, face symmetric, moist mucous membranes NECK: Supple, full range of motion CARDIOVASCULAR: Regular rate and rhythm without murmurs, rubs or gallops. No JVD. No edema bilateral lower extremities. RESPIRATORY: Breath sounds equal bilaterally, no wheezes rales or rhonchi. No tachypnea or accessory muscle use. ABDOMEN: Soft, nontender. Normoactive bowel sounds all 4 quadrants. No guarding or rebound, rigidity, no mass, no pulsatile mass or bruit. : No CVA tenderness EXTREMITIES: Normal range of motion, no clubbing or edema. Neurovascularly intact NEUROLOGICAL: Cranial nerves II through XII grossly intact. Moving all extremities SKIN: Warm, dry, no petechiae, no rashes or lesions. Initial Vital Signs Initial Vital Signs: Vital Signs Temperature 98.2 F 12/15/23 18:10 Pulse Rate 80 12/15/23 18:10 Respiratory Rate 26 H 12/15/23 18:10 Blood Pressure 136/99 H 12/15/23 18:10 Pulse Oximetry 96 12/15/23 18:10 Oxygen Delivery Method Room Air 12/15/23 18:10 Course Orders Ordered: ED Orders 12/15/23 18:19 XR chest 1V Stat EKG-12 Lead Stat 12/15/23 18:20 Complete Blood Count AUTO DIFF Stat Comprehensive Metabolic Panel Stat Lipase Stat Magnesium Stat NT-proBNP (BNP-Adult 18+) Stat PTT Partial Thromboplastin Marcus Stat Prothrombin Time INR Stat Troponin & CK Cardiac Panel Stat 12/15/23 20:12 Trop I [Troponin I] Stat 12/15/23 20:21 EKG-12 Lead Stat Discontinued Medications Aspirin (Aspirin 81 Mg Chew Tab) 324 mg PO NOW ONE Stop: 12/15/23 18:19 Last Admin: 12/15/23 18:47 Dose: 243 mg Documented By: RB Vital Signs Vital signs: Vital Signs - 8 hr 12/15/23 19:00 12/15/23 19:00 12/15/23 19:30 Temperature Pulse Rate 83 83 Respiratory Rate 25 H 21 Blood Pressure 147/88 H Pulse Oximetry 96 98 Oxygen Delivery Method 12/15/23 19:31 12/15/23 19:31 12/15/23 19:37 Temperature Pulse Rate 81 81 Respiratory Rate 21 21 Blood Pressure 182/99 H Pulse Oximetry 96 98 Oxygen Delivery Method 12/15/23 19:37 12/15/23 20:00 12/15/23 20:00 Temperature Pulse Rate 82 Respiratory Rate 23 Blood Pressure 130/74 140/83 Pulse Oximetry 98 Oxygen Delivery Method 12/15/23 20:30 12/15/23 20:31 12/15/23 20:31 Temperature Pulse Rate 81 80 Respiratory Rate 27 H 20 Blood Pressure 134/69 Pulse Oximetry 98 98 Oxygen Delivery Method 12/15/23 21:00 12/15/23 21:01 12/15/23 21:01 Temperature Pulse Rate 81 81 Respiratory Rate 27 H 19 Blood Pressure 137/71 Pulse Oximetry 98 98 Oxygen Delivery Method 12/15/23 21:17 Temperature 97.5 F L Pulse Rate 85 Respiratory Rate 18 Blood Pressure 134/78 Pulse Oximetry 97 Oxygen Delivery Method Room Air MDM - Chest Pain Lab Data 12/15/23 18:20 12/15/23 18:20 Labs: Lab Results 12/15/23 12/15/23 Range/Units 18:20 20:12 WBC 11.4 H (4.5-11.0) X10^3/uL RBC 3.52 L (4.5-5.9) X10^6/uL Hgb 12.2 L (13.5-17.5) g/dL Hct 36.0 L (41-53) % MCV 102.5 H (80-100) fL MCH 34.7 H (26-34) PG MCHC 33.8 (30-36) % RDW 13.9 (11.6-14.8) % Plt Count 199 (150-400) X10^3/uL Neut % (Auto) 67.2 (50-75) % Lymph % (Auto) 22.8 L (25-40) % [place] % (Auto) 8.8 (3-14) % Eos % (Auto) 0.7 L (2-4) % Baso % (Auto) 0.5 (0-2) % Neut # (Auto) 7700 H (2812-0749) /uL Lymph # (Auto) 2600 (1471-2853) /uL [place] # (Auto) 1000 H (0-900) /uL Eos # (Auto) 100 (0-450) /uL Baso # (Auto) 100 (0-100) /uL PT 12.6 H (9.4-12.5) SECONDS INR 1.1 (0.9-1.3) APTT 34 (25.1-36.5) SECONDS Sodium 138 (137-145) mmol/L Potassium 3.6 (3.4-5.1) mmol/L Chloride 100 (98-107) mmol/L Carbon Dioxide 30 (22-32) mmol/L BUN 19 (9-20) mg/dL Creatinine 1.33 H (0.66-1.25) mg/dL Estimated GFR 59 L (>60) mL/min BUN/Creatinine Ratio 14.3 (6-22) Glucose 111 H (80-110) mg/dL Calcium 9.0 (8.4-10.2) mg/dL Magnesium 1.4 L (1.6-2.3) mg/dL Total Bilirubin 0.9 (0.2-1.3) mg/dL AST 55 (17-59) IU/L ALT 42 (<50) IU/L Alkaline Phosphatase 72 (38-126) U/L Total Creatine Kinase 663 H (55-170) U/L Troponin I 0.021 0.029 (0.01-0.034) ng/mL NT-Pro-B Natriuret Pep 78 (<125) pg/mL Total Protein 8.2 (6.3-8.2) g/dL Albumin 4.4 (3.5-5.0) g/dL Globulin 3.8 (1.7-4.1) g/dL Albumin/Globulin Ratio 1.2 (1.0-2.8) Lipase 111 (23-300) U/L Imaging Data Chest x-ray: Radiologist's Impression: [address] [address] XRay Report? Signed Patient: Manfred Argueta MR#: [id number] : 1960 Acct:[id number] Age/Sex: 63 / M Date of Service: 12/15/23 Loc: ED Accession Number: [id number]? ? Procedure: XR chest 1V Ordering Provider: Josi Gibson D.O. PROCEDURE:? XR CHEST 1V ? INDICATIONS:? chest pain ? TECHNIQUE:? One view of the chest was acquired.?? ? COMPARISON:? [facility], CR, XR CHEST 1V, 08/25/2023, 18:21.? [facility], CR, XR? CHEST 1V, 02/15/2021, 16:40. ? FINDINGS:?? ? Surgical changes and devices:? None.?? ? Lungs and pleura:? Low lung volumes.? No dense consolidation or pleural effusion. ? Mediastinum:? Heart size is at the upper limit of normal. ? Bones and chest wall:? Degenerative changes ? ? IMPRESSION:?? Limited single view radiograph with low lung volumes.? No dense consolidation or pleural? effusion. ? Heart size is at the upper limit of normal. ? ? ? Dictated by: Norman Whyte M.D. on 12/15/2023 at 19:44? ? ? Approved by: Norman Whyte M.D. on 12/15/2023 at 19:45? ? ECG Data Attestation: I personally reviewed and interpreted this ECG as follows: Prior ECG tracings: available for review Interpretation: Sinus rhythm premature atrial complexes rate 88 [place] 206 QRS is 76 QTC of 471, no acute ST elevation or depression noted. Patient has prior from 08/25/2023 which appears similar. EKG 2. Sinus rhythm first-degree AV block rate of 79 [place] 216 QRS is 76 QTC of 456. No acute ST changes, patient's EKG appears similar to prior earlier from today with no dynamic changes. MDM Narrative Medical decision making narrative: 63-year-old male history of coronary artery disease has prior cardiac stent on aspirin daily as well as medication for hypertension dyslipidemia. Patient had episode of chest discomfort after working outside about 4 hours ago resolved with another brief episode then has not returned. Labs show white count 11.4 hemoglobin of 12.2 appears consistent with priors with baseline anemia, has some mild macrocytosis which has been present since 2020 platelets are 199. Coags are negative creatinine is 1.33, sodium is 138 potassium 3 6 chloride 100 CO2 is 30 BUN 19, glucose of 111, Mag of 1.4, total CK 663, troponin is 0.021, BNP 78. Patient's troponin was repeated is 0.029. Chest x-ray shows no acute change. Initial EKG shows no acute changes from August of 2023. EKG was repeated no acute or dynamic changes. Discussed with patient EKG does not show acute changes troponin is still negative but mildly elevated comparison to the 1st. After discussion in offered chest Pain observation he prefers to return home. States he will return if any recurrent episodes. All questions answered patient is to continue home medications as prescribed. Discharge Plan Departure Patient Disposition: Home Clinical Impression: Chest pain Instructions: DI for Chest Pain Activity Restrictions/Additional Instructions: Please follow up for recheck with your physician. Continue your home medications as prescribed. Please return for new chest pain, increasing shortness of breath, diaphoresis or sweatiness, new swelling of your extremities, nausea or vomiting, lightheadedness or passing out or other new or concerning changes. Prescriptions: No Action atorvastatin 80 mg Tablet 80 mg PO BEDTIME metoprolol succinate 50 mg Tablet Extended Release 24 Hr 100 mg PO BID omeprazole 40 mg Capsule,Delayed Release(Dr/Ec) 40 mg PO DAILY aspirin [Aspirin Childrens] 81 mg Tablet,Chewable 81 mg PO DAILY finasteride 5 mg Tablet 5 mg PO DAILY losartan 50 mg tablet 100 mg PO DAILY isosorbide mononitrate 60 mg Tablet Extended Release 24 Hr 60 mg PO BID clobetasol 0.05 % Cream 1 applic TOPICAL USEASDIRECTD Rx Instructions: Three times per week amlodipine 5 mg tablet 5 mg PO DAILY torsemide 20 mg Tablet 20 mg PO DAILY prazosin 1 mg Capsule 1 mg PO BID clopidogrel 75 mg tablet 75 mg PO DAILY Qty: 30 0RF Referrals: Ayesha Crowley PA-C [Primary Care Provider] - Stand Alone Forms: Patient Portal/API
--- NOTE | 2023-12-15 20:21 | EKG_ITS ---
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
--- NOTE | 2023-12-15 20:22 | PC.NURSE ---
Pt ambulatory to room. Able to swallow secretions.
[2023-12-15 20:48] LABS: Troponin I 0.029 ng/mL (0.01-0.034)
== END 2023-12-15 21:18 | disposition home or self-care (01) ==
PROVIDERS: Emergency Medicine; Emergency Provider Emergency Medicine; PCP Physician Assistant Medical
DX: R07.9 Chest pain, unspecified (principal); I25.10 Atherosclerotic heart disease of native coronary artery without angina pectoris; I10 Essential (primary) hypertension
CPT/HCPCS: 71045; 80053; 82550; 83690; 83735; 83880; 84484; 85025; 85610; 85730; 93005; 99284